=== PATIENT | male | born 1960 | race African-American/Black ===

== ENCOUNTER 2016-06-04 11:09 | Emergency (ER) | payer OTHER, MEDICAID ==
[~2016-06-04] VITALS: Ht 175.3 cm; Wt 75.0 kg
[~2016-06-04 11:09] MED LIST: ATEN-102 PO; LISI40TA PO; LORTA5 PO; NIFE1TAB86 PO
[2016-06-04 11:10] VITALS: BP 179/97; PULSE 91; RESP 18; TEMP 98.2; O2SAT 98
[2016-06-04] MEDS ORDERED: LISI40TA PO (12:10)
[2016-06-04] MEDS ORDERED: ATEN50TA PO (12:10)
[2016-06-04] MEDS ORDERED: NIFE60TA8 PO (12:10)
[2016-06-04] MEDS ORDERED: HYDR-3516 PO (12:10)
--- NOTE | 2016-06-04 13:08 | PD ---
HPI Chief Complaint: Pain: Acute or Chronic Time Seen by Provider: 12:50 Travel History International Travel<30 days: No Contact w/Intl Traveler<30days: No Traveled to known affect area: No History of Present Illness HPI 55-year-old male presents to the emergency Department with compla\int of left posterior knee pain 4 days. Says the pain started in his leg and then applies to his knee. Denies injury, fall, strain. Denies history of DVT or PE. Denies recent travel, hospitalization, surgery. Denies hemoptysis. Says his left seems to be a little bit more swollen than his right leg. Pain is worse with walking and palpation. Patient has neuropathy and denies increased numbness/tingling to the left lower extremity. Denies loss of sensation. Reports decreased range of motion at the knee secondary to pain. Denies anticoagulants. Patient is currently on chemotherapy for liver cancer. His last treatment was on Wednesday. Denies fever, chills, nausea, vomiting. Denies chest pain, shortness of breath, abdominal pain. Dr. Sims is oncologist. Patient of the [facility]. No known allergies. History of hypertension. No other modifying factors or associated signs and symptoms. 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, LIVER CA ) Cardiovascular Problems: No Chemotherapy: Yes (COLON CA) Diabetes: No Diminished Hearing: No Endocrine: No GERD: No Genitourinary: Yes (RECTAL CA; COLOSTOMY, LIVER CA ) Hepatitis: No Hiatal Hernia: No Hypertension: Yes Immune Disorder: No Musculoskeletal: No Neurologic: No Psychiatric: No Reproductive: No Respiratory: No Radiation Therapy: Yes Thyroid Disease: No Ulcer: No Past Surgical History Abdominal Surgery: Yes (PARTIAL COLECTOMY WITH COLOSTOMY 10/2012) AICD: No Cardiac Surgery: No Ear Surgery: No Endocrine Surgery: No Eye Surgery: No Genitourinary Surgery: No Gynecologic Surgery: No Joint Replacement: No Oral Surgery: No Pacemaker: No Thoracic Surgery: No Other Surgery: Yes (COLOSTOMY;) Social History Alcohol Use: No Tobacco Use: No Substance Use: No Allergies-Medications (Allergen,Severity, Reaction): Coded Allergies: No Known Allergies (Verified , 06/04/16) Reported Meds & Prescriptions Reported Meds & Active Scripts Active Xarelto (Rivaroxaban) 15 Mg Tab 15 Mg PO Q12HR 21 Days Reported Hydrocodone-Acetaminophen 5-325 mg Tab 1 Tab PO Q8H PRN Atenolol 50 Mg Tab 50 Mg PO DAILY Nifedipine ER 24 HR (Nifedipine) 60 Mg Tab 1 Cap PO DAILY Lisinopril 40 Mg Tab 40 Mg PO DAILY Review of Systems Except as stated in HPI: all other systems reviewed are Neg Physical Exam Narrative GENERAL: Well-nourished, well-developed male patient, in no acute distress; afebrile, nontoxic-appearing SKIN: Warm and dry. HEAD: Atraumatic. Normocephalic. EYES: Pupils equal and round. No scleral icterus. No injection or drainage. ENT: Mucosa pink and moist. Airway patent. NECK: Trachea midline. CARDIOVASCULAR: Regular rate and rhythm. No murmur appreciated. RESPIRATORY: No accessory muscle use. Clear and equal to auscultation bilaterally. GASTROINTESTINAL: Abdomen soft, non-tender, nondistended. Bowel sounds active 4 quadrants. Colostomy to the left lower quadrant. MUSCULOSKELETAL: Left lower extremity supple and non-tense with 2+ pedal pulse and sensory intact without erythema or edema. Reproducible tenderness on palpation to the left posterior upper calf and to the posterior aspect of the left knee. Left knee is nonedematous and nonerythematous; with tenderness to the posterior aspect; with full range of motion to flexion at 90; joint stable and negative drawer test. No obvious deformities. No clubbing. No cyanosis. No edema. NEUROLOGICAL: Awake and alert. Oriented 3. No obvious cranial nerve deficits. Motor grossly within normal limits. Normal speech. PSYCHIATRIC: Appropriate mood and affect; insight and judgment normal. Data Data Last Documented VS Vital Signs Date Time Temp Pulse Resp B/P Pulse Ox O2 Delivery O2 Flow Rate FiO2 06/04/16 11:10 98.2 91 18 179/97 98 Orders Us Leg Venous Doppler (06/04/16 ) Knee, Complete (4vws) (06/04/16 13:08) Crutches (06/04/16 16:02) Rivaroxaban (Xarelto) (06/04/16 16:15) MDM Medical Decision Making Medical Screen Exam Complete: Yes Emergency Medical Condition: Yes Medical Record Reviewed: Yes Differential Diagnosis Knee bursitis, arthritis, DVT Narrative Course 55-year-old male who is currently on chemotherapy for liver cancer with posterior knee pain and left leg pain. Left lower extremity supple and non- tense with 2+ pedal pulses and sensory intact and without erythema or edema. He denies history of DVT or PE. Denies anticoagulants. Patient is afebrile nontoxic appearing. Left leg venous ultrasound ordered. Left knee x-ray ordered. 1344: Left knee x-ray concludes Mild osteoarthritis without fracture; 2. Bone island medial tibial plateau. 1528: Left leg venous ultrasound concluded There is extensive left lower extremity DVT with thrombus present from the common femoral vein through the superficial femoral vein and popliteal vein into the tibial veins. I spoke with Dr. Peng, my attending physician, and he recommended to call the patients oncologist for recommendation of further treatment. Call out to Dr. Sims placed. 1555: I spoke with Dr. Sims and he recommended to start the patient on Xarelto and for the patient to follow up outpatient. Xarelto administered in ER. Crutches provided for support. Lortab and Xarelto prescribed for home. Instructed patient to follow up outpatient with Dr. Sims and primary care and he verbalizes understanding and agreement. Discussed in great detail reasons to return to the emergency department and the patient verbalized understanding and agreement. Patient is medically cleared and stable for discharge. Discussed reasons to return to the emergency department. Instructed patient to follow up with primary care provider. Patient agrees with treatment plan. The patients vital signs are stable and the patient is stable for outpatient follow- up and treatment. Patient discharged home, stable and in no acute distress. Diagnosis Primary Impression: Left leg DVT Qualified Code: I82.412 - Deep vein thrombosis (DVT) of femoral vein of left lower extremity, unspecified chronicity Referrals: Aldo Sims MD Primary Care Physician Patient Instructions: Deep Venous Thrombosis (ED), General Instructions Additional Instructions: Takes Xarelto as prescribed Follow-up with primary care provider Follow-up with Dr. Sims, oncologist Return to the emergency department immediately with worsening of symptoms, particularly with symptoms as discussed Med/Other Pt SpecificInfo: Prescription(s) given Scripts Hydrocodone-Acetaminophen (Lortab)5-325 Mg Tab1 Tab PO Q6H PRN (PAIN) #20 TAB Ref 0 Prov:Stu Peng MD 06/04/16 Rivaroxaban (Xarelto)15 Mg Tab15 Mg PO Q12HR 21 Days Ref 0 Prov:Yusra Samuel 06/04/16 Disposition: 01 DISCHARGE HOME Condition: Stable Yusra Samuel Jun 04, 2016 13:08
--- NOTE | 2016-06-04 13:30 | RADRPT ---
EXAM DATE/TIME: 06/04/2016 13:24 [facility] COMPARISON: No previous studies available for comparison. INDICATIONS : Left knee pain with no known injury. MEDICAL HISTORY : None. SURGICAL HISTORY : None. ENCOUNTER: Initial ACUITY: 4 - 6 days PAIN SCORE: 8/10 LOCATION: Left posterior knee. FINDINGS: Four view examination of the left knee demonstrates no evidence of fracture or dislocation. Mild oste oarthritis. No fracture or effusion. Sclerotic focus medial tibial plateau. The suprapatellar soft ti ssues have a normal configuration. CONCLUSION: 1. Mild osteoarthritis without fracture. 2. Bone island medial tibial plateau. Chuck Valentine MD on June 04, 2016 at 13:28 Board Certified Radiologist. This report was verified electronically.
--- NOTE | 2016-06-04 15:21 | RADRPT ---
EXAM DATE/TIME: 06/04/2016 13:59 [facility] COMPARISON: No previous studies available for comparison. INDICATIONS : Pain in left lower extremity. MEDICAL HISTORY : Hypertension. Colorectal cancer. Liver cancer. UTI. Radiation therapy. Measles. SURGICAL HISTORY : Partial colectomy. Colostomy. ENCOUNTER: Initial ACUITY: 2 day PAIN SCORE: 10/10 LOCATION: Left leg. TECHNIQUE: Venous ultrasound of the leg was performed from the inguinal ligament to the proximal calf. Real-meghan e, color Doppler and spectral tracing, compression and augmentation techniques were used. FINDINGS: There is extensive left lower extremity DVT with thrombus present from the common femoral vein throug h the superficial femoral vein and popliteal vein into the tibial veins. CONCLUSION: Extensive left lower extremity DVT Tacho Valera MD on June 04, 2016 at 15:17 Board Certified Radiologist. This report was verified electronically.
[2016-06-04] MEDS ORDERED: XARE15TA PO (15:59)
[2016-06-04] MEDS ORDERED: HYDR-3533 PO (16:12)
[2016-06-04] MEDS ORDERED: RIVAROXABAN 15 MG TAB PO ONE (16:15)
== END 2016-06-04 16:58 | disposition home or self-care (01) ==
LOC: NEPB 11:09
DX: I82.412 Acute embolism and thrombosis of left femoral vein (principal)
CPT/HCPCS: 73564; 93971; 99283; E0113

== ENCOUNTER 2016-06-15 16:32 | Inpatient (IN) | payer OTHER, MEDICAID, MEDICARE ==
[~2016-06-15] VITALS: Ht 172.7 cm; Wt 73.0 kg
[~2016-06-15 16:32] MED LIST changes: -ATEN-102 PO; +ATEN50TA PO; +HYDR-3516 PO; +HYDR-3533 PO; -LORTA5 PO; -NIFE1TAB86 PO; +NIFE60TA8 PO; +XARE15TA PO
[2016-06-15 16:45] VITALS: BP 101/68; PULSE 69; RESP 20; TEMP 98.4; O2SAT 99
[2016-06-15 16:53] VITALS: BP 101/68; PULSE 72; RESP 20; O2SAT 98
[2016-06-15] MEDS ORDERED: SODIUM CHLOR 0.9% 1000 ML INJ 1,000 ML IV SCH (16:54)
[2016-06-15 16:59] VITALS: BP 101/68; PULSE 62; RESP 16; O2SAT 100
[2016-06-15] MEDS ORDERED: SODIUM CHLORIDE 0.9% FLUSH 5 ML FLUSH IVF PRN (17:00)
[2016-06-15] MEDS ORDERED: DIPHEN/ATROPINE PO (17:15)
[2016-06-15] MEDS ORDERED: GABA300C5 PO (17:15)
[2016-06-15] MEDS ORDERED: POTA10CA PO (17:15)
[2016-06-15] MEDS ORDERED: AMLO10TA2 PO (17:15)
--- NOTE | 2016-06-15 17:19 | PD ---
HPI Chief Complaint: General Weakness Time Seen by Provider: 16:48 Travel History International Travel<30 days: No Contact w/Intl Traveler<30days: No Traveled to known affect area: No History of Present Illness HPI This is a 55-year-old male who presents history of metastatic colon cancer who presents to the emergency department with increasing right upper quadrant abdominal pain, decreased appetite and lethargy and weakness that of a worsening over the past 3 days. He denies any fevers or chills and denies any nausea or vomiting. He last had chemotherapy a week ago and is followed by Dr. Sims. 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, LIVER CA ) Cardiovascular Problems: Yes (HTN) Chemotherapy: Yes Diabetes: No Diminished Hearing: No Deep Vein Thrombosis: Yes (RECENT LT LEG DIAG) Endocrine: No Gastrointestinal Disorders: Yes GERD: No Genitourinary: Yes (RECTAL CA; COLOSTOMY, LIVER CA ) Hepatitis: No Hiatal Hernia: No Hypertension: Yes Immune Disorder: No Implanted Vascular Access Dvce: No Musculoskeletal: No Neurologic: No Psychiatric: No Reproductive: No Respiratory: No Radiation Therapy: Yes Thyroid Disease: No Ulcer: No Tetanus Vaccination: < 5 Years Influenza Vaccination: No Past Surgical History Abdominal Surgery: Yes (PARTIAL COLECTOMY WITH COLOSTOMY 10/2012) AICD: No Cardiac Surgery: No Ear Surgery: No Endocrine Surgery: No Eye Surgery: No Genitourinary Surgery: No Gynecologic Surgery: No Joint Replacement: No Neurologic Surgery: No Oral Surgery: No Pacemaker: No Thoracic Surgery: No Other Surgery: Yes (COLOSTOMY;) Social History Alcohol Use: No Tobacco Use: No Substance Use: No Allergies-Medications (Allergen,Severity, Reaction): Coded Allergies: No Known Allergies (Verified , 06/15/16) Reported Meds & Prescriptions Reported Meds & Active Scripts Active Lortab (Hydrocodone-Acetaminophen) 5-325 Mg Tab 1 Tab PO Q6H PRN Xarelto (Rivaroxaban) 15 Mg Tab 15 Mg PO Q12HR 21 Days Reported Doxazosin (Doxazosin Mesylate) 4 Mg Tab 4 Mg PO HS [Diphen/Atropine] 1-2 PO Q4HR PRN Gabapentin 300 Mg Cap 300 Mg PO TID Amlodipine (Amlodipine Besylate) 10 Mg Tab 10 Mg PO DAILY Potassium Chloride ER (Potassium Chloride) 10 Meq Cap 10 Meq PO BID Atenolol 50 Mg Tab 50 Mg PO DAILY Nifedipine ER 24 HR (Nifedipine) 60 Mg Tab 1 Cap PO DAILY Lisinopril 40 Mg Tab 40 Mg PO DAILY Review of Systems Except as stated in HPI: all other systems reviewed are Neg Physical Exam Narrative GENERAL: Chronically ill-appearing. SKIN: Warm and dry. HEAD: Atraumatic. Normocephalic. EYES: Pupils equal and round. No injection or drainage. Scleral icterus. ENT: Dry mucous membranes. NECK: Trachea midline. CARDIOVASCULAR: Regular rate and rhythm. No murmur appreciated. RESPIRATORY: Clear to auscultation. Breath sounds equal bilaterally. GASTROINTESTINAL: Abdomen soft, tender to palpation in the right upper quadrant with no rebound or guarding. MUSCULOSKELETAL: No obvious deformities. NEUROLOGICAL: Awake and alert. No obvious cranial nerve deficits. Moving all extremities. PSYCHIATRIC: Appropriate mood and affect; insight and judgment normal. Data Data Last Documented VS Vital Signs Date Time Temp Pulse Resp B/P Pulse Ox O2 Delivery O2 Flow Rate FiO2 06/15/16 17:27 Room Air 06/15/16 16:59 62 16 101/68 100 06/15/16 16:45 98.4 Orders Complete Blood Count With Diff (06/15/16 16:54) Comprehensive Metabolic Panel (06/15/16 16:54) Lipase (06/15/16 16:54) Urinalysis - C+S If Indicated (06/15/16 16:54) Iv Access Insert/Monitor (06/15/16 16:54) Ecg Monitoring (06/15/16 16:54) Oximetry (06/15/16 16:54) Sodium Chlor 0.9% 1000 Ml Inj (Ns 1000 M (06/15/16 16:54) Sodium Chloride 0.9% Flush (Ns Flush) (06/15/16 17:00) Pantoprazole Inj (Protonix Inj) (06/15/16 18:45) Type And Screen (06/15/16 18:44) Prothrombin Time / Inr (Pt) (06/15/16 18:44) Act Partial Throm Time (Ptt) (06/15/16 18:44) Red Blood Cells (Rbc) (06/15/16 18:44) Blood Product Administration .UPON TRANSFUSION (06/15/16 18:44) Sodium Chlor 0.9% 250 Ml Inj (Ns 250 Ml (06/15/16 18:45) Pantoprazole Inj (Protonix Inj) (06/15/16 20:00) Pantoprazole Inj (Protonix Inj) (06/15/16 20:00) Labs Laboratory Tests Test 06/15/16 18:10 White Blood Count 2.7 TH/MM3 Red Blood Count 2.60 MIL/MM3 Hemoglobin 7.4 GM/DL Hematocrit 22.8 % Mean Corpuscular Volume 87.5 FL Mean Corpuscular Hemoglobin 28.5 PG Mean Corpuscular Hemoglobin 32.6 % Concent Red Cell Distribution Width 17.1 % Platelet Count 264 TH/MM3 Mean Platelet Volume 8.8 FL Neutrophils (%) (Auto) % Lymphocytes (%) (Auto) % Monocytes (%) (Auto) % Eosinophils (%) (Auto) % Basophils (%) (Auto) % Neutrophils # (Auto) TH/MM3 Lymphocytes # (Auto) TH/MM3 Monocytes # (Auto) TH/MM3 Eosinophils # (Auto) TH/MM3 Basophils # (Auto) TH/MM3 CBC Comment AUTO DIFF Sodium Level 138 MEQ/L Potassium Level 3.6 MEQ/L Chloride Level 103 MEQ/L Carbon Dioxide Level 24.7 MEQ/L Anion Gap 10 MEQ/L Blood Urea Nitrogen 28 MG/DL Creatinine 1.28 MG/DL Estimat Glomerular Filtration 71 ML/MIN Rate Random Glucose 103 MG/DL Calcium Level 7.7 MG/DL Total Bilirubin 0.7 MG/DL Aspartate Amino Transf 108 U/L (AST/SGOT) Alanine Aminotransferase 63 U/L (ALT/SGPT) Alkaline Phosphatase 65 U/L Total Protein 6.7 GM/DL Albumin 1.6 GM/DL Lipase 66 U/L MDM Medical Decision Making Medical Screen Exam Complete: Yes Emergency Medical Condition: Yes Differential Diagnosis Electrolyte abnormality, dehydration, anemia, GI bleed, malignancy Narrative Course This is a 55-year-old male who presents to the emergency department with increasing fatigue and generalized weakness as well as poor oral intake over the past week. He was recently started on xarelto for a DVT. Patient was placed on a monitor and his port was accessed. He was found to have his hemoglobin of 7.4 which is down from 10 2 weeks ago. His colostomy had grossly heme positive stool. I suspect the patient's generalized weakness is in the setting of GI bleed. Patient will require admission. He was started on a pantoprazole drip, patient will be transfused one unit of blood, and Dr. Juarez should be consulted as an inpatient as well as Dr. Sims. Diagnosis Primary Impression: GI bleed Qualified Code: K92.2 - Gastrointestinal hemorrhage, unspecified gastrointestinal hemorrhage type Admitting Information Admitting Physician Requests: Admit Alda Jung MD Jun 15, 2016 17:19
[2016-06-15] MEDS ORDERED: DOXA1TAB34 PO (17:21)
[2016-06-15 18:27] LABS: HEMATOCRIT 22.8 % (39.0-51.0); MEAN CELL VOLUME 87.5 FL (80.0-100.0); MEAN CORPUSCULAR HEMOGLOBIN 28.5 PG (27.0-34.0); MEAN CORPUSCULAR HGB CONC 32.6 % (32.0-36.0); PLATELET COUNT 264 TH/MM3 (150-450); RED CELL DISTRIBUTION WIDTH 17.1 % (11.6-17.2); WHITE BLOOD COUNT 2.7 TH/MM3 (4.0-11.0)
[2016-06-15 18:31] LABS: HEMO FLAGS AUTO DIFF
[2016-06-15] MEDS ORDERED: SODIUM CHLOR 0.9% 250 ML INJ 250 ML IV ONE (18:45)
[2016-06-15] MEDS ORDERED: PANTOPRAZOLE SODIUM 40 MG VIAL IV PUSH ONE (18:45)
[2016-06-15 19:03] LABS: ANION GAP 10 MEQ/L (5-15); AST (GOT) 108 U/L (15-37); BICARBONATE 24.7 MEQ/L (21.0-32.0); BLOOD UREA NITROGEN 28 MG/DL (7-18); CHLORIDE 103 MEQ/L (98-107); GLOMERULAR FILTRATION RATE 71 ML/MIN (>89); POTASSIUM 3.6 MEQ/L (3.5-5.1); SODIUM (NA) 138 MEQ/L (136-145)
[2016-06-15 19:06] LABS: ALKALINE PHOSPHATASE 65 U/L (45-117); ALT (GPT) 63 U/L (12-78); TOTAL BILIRUBIN ADULT 0.7 MG/DL (0.2-1.0)
[2016-06-15 19:18] LABS: BANDS 4 % (0-6); BASOPHILS 1 % (0-2); NEUTROPHIL # MANUAL DIFF 0.6 TH/MM3 (1.8-7.7); PLASMA CELLS 3 % (0-0); POLYS (SEG NEUTROPHILS) 16 % (16-70); PROMYELOCYTES 1 % (0-0); WBC DIFF SAMPLE 100
[2016-06-15 19:21] LABS: OVALOCYTES 1+ (NORMAL)
[2016-06-15 19:22] LABS: KERATOCYTES OCC (NORMAL); PLATELET ESTIMATE SMEAR NORMAL (NORMAL); PLATELET MORPHOLOGY NORMAL (NORMAL); SCAN/DIFF FINAL DIFF MANUAL
[2016-06-15 19:24] LABS: BLOOD, URINE SMALL (NEG); COMMENT (UR) CULT NOT INDICATED; CULTURE IF INDICATED CULT NOT INDICATED; GLUCOSE,URINE TRACE mg/dL (NEG); KETONE, URINE NEG (NEG); MUCUS URINE FEW /lpf (OCC); NITRITE,URINE NEG (NEG); PH, URINE 5.5 (5.0-8.5); SQUAMOUS EPITHELIAL CELL URINE 3 /hpf (0-5); URINE COLOR YELLOW (YELLW/STRAW)
[2016-06-15] MEDS ORDERED: PANTOPRAZOLE INJ 80 MG in SODIUM CHLORIDE 0.9% INJ 35 ML IV ONE (20:00)
--- NOTE | 2016-06-15 20:30 | PD ---
Data Data Last Documented VS Vital Signs Date Time Temp Pulse Resp B/P Pulse Ox O2 Delivery O2 Flow Rate FiO2 06/15/16 17:27 Room Air 06/15/16 16:59 62 16 101/68 100 06/15/16 16:45 98.4 Orders Complete Blood Count With Diff (06/15/16 16:54) Comprehensive Metabolic Panel (06/15/16 16:54) Lipase (06/15/16 16:54) Urinalysis - C+S If Indicated (06/15/16 16:54) Iv Access Insert/Monitor (06/15/16 16:54) Ecg Monitoring (06/15/16 16:54) Oximetry (06/15/16 16:54) Sodium Chlor 0.9% 1000 Ml Inj (Ns 1000 M (06/15/16 16:54) Sodium Chloride 0.9% Flush (Ns Flush) (06/15/16 17:00) Pantoprazole Inj (Protonix Inj) (06/15/16 18:45) Type And Screen (06/15/16 18:44) Prothrombin Time / Inr (Pt) (06/15/16 18:44) Act Partial Throm Time (Ptt) (06/15/16 18:44) Red Blood Cells (Rbc) (06/15/16 18:44) Blood Product Administration .UPON TRANSFUSION (06/15/16 18:44) Sodium Chlor 0.9% 250 Ml Inj (Ns 250 Ml (06/15/16 18:45) Pantoprazole Inj (Protonix Inj) (06/15/16 20:00) Pantoprazole Inj (Protonix Inj) (06/15/16 20:00) Admit Order (Ed Use Only) (06/15/16 20:58) Labs Laboratory Tests Test 06/15/16 06/15/16 06/15/16 06/15/16 18:10 18:45 20:10 20:20 White Blood Count 2.7 TH/MM3 Red Blood Count 2.60 MIL/MM3 Hemoglobin 7.4 GM/DL Hematocrit 22.8 % Mean Corpuscular Volume 87.5 FL Mean Corpuscular Hemoglobin 28.5 PG Mean Corpuscular Hemoglobin 32.6 % Concent Red Cell Distribution Width 17.1 % Platelet Count 264 TH/MM3 Mean Platelet Volume 8.8 FL Neutrophils (%) (Auto) % Lymphocytes (%) (Auto) % Monocytes (%) (Auto) % Eosinophils (%) (Auto) % Basophils (%) (Auto) % Neutrophils # (Auto) TH/MM3 Lymphocytes # (Auto) TH/MM3 Monocytes # (Auto) TH/MM3 Eosinophils # (Auto) TH/MM3 Basophils # (Auto) TH/MM3 CBC Comment AUTO DIFF Differential Total Cells 100 Counted Neutrophils % (Manual) 16 % Band Neutrophils % 4 % Lymphocytes % 36 % Monocytes % 39 % Basophils % 1 % Neutrophils # (Manual) 0.6 TH/MM3 Promyelocytes 1 % Differential Comment FINAL DIFF MANUAL Plasma Cells 3 % Platelet Estimate NORMAL Platelet Morphology Comment NORMAL Ovalocytes 1+ Keratocytes OCC Sodium Level 138 MEQ/L Potassium Level 3.6 MEQ/L Chloride Level 103 MEQ/L Carbon Dioxide Level 24.7 MEQ/L Anion Gap 10 MEQ/L Blood Urea Nitrogen 28 MG/DL Creatinine 1.28 MG/DL Estimat Glomerular Filtration 71 ML/MIN Rate Random Glucose 103 MG/DL Calcium Level 7.7 MG/DL Total Bilirubin 0.7 MG/DL Aspartate Amino Transf 108 U/L (AST/SGOT) Alanine Aminotransferase 63 U/L (ALT/SGPT) Alkaline Phosphatase 65 U/L Total Protein 6.7 GM/DL Albumin 1.6 GM/DL Lipase 66 U/L Urine Color YELLOW Urine Turbidity HAZY Urine pH 5.5 Urine Specific [place] 1.023 Urine Protein 100 mg/dL Urine Glucose (UA) TRACE mg/dL Urine Ketones NEG mg/dL Urine Occult Blood SMALL Urine Nitrite NEG Urine Bilirubin NEG Urine Urobilinogen LESS THAN 2.0 MG/DL Urine Leukocyte Esterase NEG Urine RBC 1 /hpf Urine WBC 2 /hpf Urine Squamous Epithelial 3 /hpf Cells Urine Mucus FEW /lpf Microscopic Urinalysis Comment CULT NOT INDICATED Prothrombin Time 21.6 SEC Prothromb Time International 1.9 RATIO Ratio Activated Partial 52.8 SEC Thromboplast Time Blood Type B POSITIVE Antibody Screen NEGATIVE Crossmatch Leukocyte-Reduced Red Blood Cells Blood Bank Comment [facility] Medical Record Reviewed: Yes Supervised Visit with ULISES: No Narrative Course CBC & BMP Diagram 06/15/16 18:10 AST 108 Albumin 1.6 Lipase 66 INR 1.9 APTT 52.8 Patient will be admitted for transfusion of packed red cells. Protonix bolus and drip initiated. The patient will be admitted for management of GI bleed/ acute anemia. Diagnosis Primary Impression: GI bleed Qualified Code: K92.2 - Gastrointestinal hemorrhage, unspecified gastrointestinal hemorrhage type Admitting Information Admitting Physician Requests: Admit Jabier Loo MD Jun 15, 2016 20:30
[2016-06-15 21:00] LABS: APTT (PATIENT) 52.8 SEC (24.3-30.1); INTERNATIONAL NORMALIZED RATIO 1.9 RATIO; PROTHROMBIN TIME - PATIENT 21.6 SEC (9.8-11.6)
[2016-06-15] MEDS ORDERED: NALOXONE HCL 0.4 MG/ML AMP IV PRN (21:30)
[2016-06-15] MEDS ORDERED: SODIUM CHLORIDE 0.9% FLUSH 5 ML FLUSH FLUSH PRN (21:30)
[2016-06-15] MEDS ORDERED: ONDANSETRON HCL 4 MG/2 ML VIAL IVP PRN (21:30)
[2016-06-15 22:43] VITALS: BP 130/81; PULSE 60; RESP 16; TEMP 98.1; O2SAT 99
[2016-06-15] MEDS: PANTOPRAZOLE INJ 80 MG in SODIUM CHLORIDE 0.9% INJ 100 ML IV SCH (22:45)
[2016-06-15 23:05] VITALS: BP 126/85; PULSE 78; RESP 16; TEMP 98.3; O2SAT 99
[2016-06-15 23:57] VITALS: BP 162/88; PULSE 62; RESP 20; TEMP 97.7; O2SAT 100
[2016-06-16] VITALS (13 sets, daily range): BP systolic 115–158; BP diastolic 80–97; PULSE 52–67; RESP 18–22; TEMP 96.8–98.9; O2SAT 94–100
--- NOTE | 2016-06-16 01:38 | HHI.HP ---
[facility]ician Unknown Admission Diagnosis GI Bleed, Acute Anemia Diagnoses: Chief Complaint: Blood in colostomy bag Travel History International Travel<30 Days: No Contact w/Intl Traveler <30 Da: No Traveled to Known Affected Are: No History of Present Illness History from patient, ER physician communication, and review of medical records. Patient reported that he came to the hospital because he started seeing black color blood in his colostomy bag starting Wednesday. He also reports of severe fatigue. Denies any chest pains or shortness of breath or dizziness or focal weakness. Denies any passing out episodes. Patient reports he has colon cancer with metastasis and he is on chemotherapy at present. His last dose of chemotherapy was about a week ago. He reports that he is also on Xarelto for his left lower extremity DVT which was found about 3 days ago. He states he stopped taking Xarelto this morning. He denies any prior history of GI ulcers. As per ER report, patient was somewhat complaining of chest pain when the IV line was placed onto his left arm. In the emergency room, guaiac was done on his colostomy output and this was positive. Patient was started on pantoprazole IV drip in ER. Review of Systems Constitutional: COMPLAINS OF: Fatigue, DENIES: Diaphoretic episodes, Fever, Weight gain, Weight loss, Chills, Dizziness Endocrine: DENIES: Heat/cold intolerance, Polydipsia, Polyuria, Polyphagia Respiratory: COMPLAINS OF: Shortness of breath, DENIES: Apneas, Cough, Wheezing, Hemoptysis, Sputum production Cardiovascular: COMPLAINS OF: Dyspnea on Exertion, Orthopnea, DENIES: Chest pain, Palpitations, Syncope, PND, Lower Extremity Edema Gastrointestinal: COMPLAINS OF: Abdominal pain, Black stools, DENIES: Bloody stools, Constipation, Diarrhea, Nausea, Vomiting, Difficulty Swallowing, Anorexia Genitourinary: DENIES: Urinary frequency, Urinary incontinence, Urgency, Hematuria, Dysuria, Nocturia Neurologic: DENIES: Abnormal gait, Headache, Localized weakness, Paresthesias, Seizures, Speech Problems, Tremor, Poor Balance Past Family Social History Past Medical History Colon cancerwith metastasison chemotherapy, last dose 2 weeks ago Hypertension Left lower extremity DVT Past Surgical History Colon surgery removal DVT Reported Medications Patient's medications listed in EMRreviewed. Allergies: Coded Allergies: No Known Allergies (Verified , 06/15/16) Family History Denies any family history of any medical conditions. Social History Denies smoking/alcohol abuse/drug abuse. Physical Exam Vital Signs Vital Signs Date Time Temp Pulse Resp B/P Pulse Ox O2 Delivery O2 Flow Rate FiO2 06/15/16 23:57 97.7 62 20 162/88 100 06/15/16 23:05 98.3 78 16 126/85 99 Room Air 06/15/16 22:43 98.1 60 16 130/81 99 Room Air 06/15/16 17:27 Room Air 06/15/16 16:59 62 16 101/68 100 Room Air 06/15/16 16:53 72 20 101/68 98 Room Air 06/15/16 16:45 98.4 69 20 101/68 99 Physical Exam GENERAL: This is a well-nourished, well-developed patient, in no apparent distress. SKIN: No rashes, ecchymoses or lesions. Cool and dry. HEAD: Atraumatic. Normocephalic. No temporal or scalp tenderness. EYES: Pupils equal round and reactive. Extraocular motions intact. No scleral icterus. No injection or drainage. ENT: Nose without bleeding, purulent drainage or septal hematoma. Throat without erythema, tonsillar hypertrophy or exudate. Uvula midline. Airway patent. NECK: Trachea midline. No JVD or lymphadenopathy. Supple, nontender, no meningeal signs. CARDIOVASCULAR: Regular rate and rhythm without murmurs, gallops, or rubs. RESPIRATORY: Clear to auscultation. Breath sounds equal bilaterally. No wheezes , rales, or rhonchi. GASTROINTESTINAL: Abdomen soft, non-tender, nondistended. No hepato-splenomegaly , or palpable masses. No guarding. MUSCULOSKELETAL: Extremities without clubbing, cyanosis, or edema. No calf tenderness. NEUROLOGICAL: Awake and alert. Motor and sensory grossly within normal limits. Normal speech. Laboratory Laboratory Tests Test 06/15/16 06/15/16 06/15/16 06/15/16 18:10 18:45 20:10 20:20 White Blood Count 2.7 Red Blood Count 2.60 Hemoglobin 7.4 Hematocrit 22.8 Mean Corpuscular Volume 87.5 Mean Corpuscular Hemoglobin 28.5 Mean Corpuscular Hemoglobin 32.6 Concent Red Cell Distribution Width 17.1 Platelet Count 264 Mean Platelet Volume 8.8 Neutrophils (%) (Auto) Lymphocytes (%) (Auto) Monocytes (%) (Auto) Eosinophils (%) (Auto) Basophils (%) (Auto) Neutrophils # (Auto) Lymphocytes # (Auto) Monocytes # (Auto) Eosinophils # (Auto) Basophils # (Auto) CBC Comment AUTO DIFF Differential Total Cells 100 Counted Neutrophils % (Manual) 16 Band Neutrophils % 4 Lymphocytes % 36 Monocytes % 39 Basophils % 1 Neutrophils # (Manual) 0.6 Promyelocytes 1 Differential Comment FINAL DIFF MANUAL Plasma Cells 3 Platelet Estimate NORMAL Platelet Morphology Comment NORMAL Ovalocytes 1+ Keratocytes OCC Sodium Level 138 Potassium Level 3.6 Chloride Level 103 Carbon Dioxide Level 24.7 Anion Gap 10 Blood Urea Nitrogen 28 Creatinine 1.28 Estimat Glomerular Filtration 71 Rate Random Glucose 103 Calcium Level 7.7 Total Bilirubin 0.7 Aspartate Amino Transf 108 (AST/SGOT) Alanine Aminotransferase 63 (ALT/SGPT) Alkaline Phosphatase 65 Total Protein 6.7 Albumin 1.6 Lipase 66 Urine Color YELLOW Urine Turbidity HAZY Urine pH 5.5 Urine Specific Beth[place] 1.023 Urine Protein 100 Urine Glucose (UA) TRACE Urine Ketones NEG Urine Occult Blood SMALL Urine Nitrite NEG Urine Bilirubin NEG Urine Urobilinogen LESS THAN 2.0 Urine Leukocyte Esterase NEG Urine RBC 1 Urine WBC 2 Urine Squamous Epithelial 3 Cells Urine Mucus FEW Microscopic Urinalysis Comment CULT NOT INDICATED Prothrombin Time 21.6 Prothromb Time International 1.9 Ratio Activated Partial 52.8 Thromboplast Time Blood Type B POSITIVE Antibody Screen NEGATIVE Crossmatch Leukocyte-Reduced Red Blood Cells Blood Bank Comment Test 06/15/16 21:18 Crossmatch Leukocyte-Reduced Red Blood Cells Blood Bank Comment Result Diagram: 06/15/16180906/15/161809 Assessment and Plan Problem List: (1) GI bleed ICD Code: K92.2 Status: Acute (2) Left leg DVT ICD Code: I82.402 Status: Acute (3) Colon cancer metastasized to multiple sites ICD Code: C18.9 Status: Acute Assessment and Plan Impression: Upper GI bleedlikely due to Xarelto. Symptomatic anemiasecondary to acute blood loss Colon cancerwith metastasison chemotherapy, last dose 2 weeks ago Hypertension Left lower extremity DVTrecent diagnosis Chronic anticoagulation on Xarelto Plan: Stop all blood thinners. Pantoprazole IV drip. Type and screen for 2 units. Transfuse 2 units of PRBC. Consult patient's GI Dr. Robles for colonoscopy through the colostomy. Consult patient's oncologist as he is still on active chemotherapy. DVT prophylaxisno chemical prophylaxis due to acute GI bleed. SCD is contraindicated due to acute DVT. GI prophylaxis on pantoprazole. Discussed Condition With patient, ER MD, patient's nurse Physician Certification 2 Midnight Certification Type: Admission for Inpatient Services Order for Inpatient Services The services are ordered in accordance with Medicare regulations or non- Medicare payer requirements, as applicable. In the case of services not specified as inpatient-only, they are appropriately provided as inpatient services in accordance with the 2-midnight benchmark. Estimated LOS (days): 3 days is the estimated time the patient will need to remain in the hospital, assuming treatment plan goals are met and no additional complications. Post-Hospital Plan: Home Problem Qualifiers (1) GI bleed: Qualified Code: K92.2 - Gastrointestinal hemorrhage, unspecified gastrointestinal hemorrhage type Alberto Caldwell MD Jun 16, 2016 01:38
[2016-06-16] MEDS: MORPHINE SULFATE 4 MG/ML INJ IV PUSH PRN ×3 (02:18→17:50)
[2016-06-16] MEDS: PANTOPRAZOLE INJ 80 MG in SODIUM CHLORIDE 0.9% INJ 100 ML IV SCH ×2 (05:54→17:49)
[2016-06-16] MEDS: GABAPENTIN 300 MG CAP PO SCH ×3 (08:49→17:49)
[2016-06-16] MEDS: ATENOLOL 50 MG TAB PO SCH (08:49)
[2016-06-16] MEDS: SODIUM CHLORIDE 0.9% FLUSH 5 ML FLUSH FLUSH SCH ×2 (08:50→20:15)
[2016-06-16 09:32] LABS: HEMATOCRIT 36.7 % (39.0-51.0); REVIEW FLAG FINAL
--- NOTE | 2016-06-16 11:30 | HHI.PR ---
Addendum to Inpatient Note Additional Information Mr. Palomares is doing well. No acute concerns at this point. Waiting for GI consult. H&H this AM 12.4/36.7. Jeronimo Erwin DO Jun 16, 2016 11:30 am
[2016-06-16 13:30] LABS: AUTOMATED NEUTROPHIL # 4.1 TH/MM3 (1.8-7.7); BASOPHIL % 0.3 % (0.0-2.0); LYMPH % 14.9 % (9.0-44.0); LYMPHOCYTE # 0.9 TH/MM3 (1.0-4.8); MEAN CORPUSCULAR HEMOGLOBIN 28.2 PG (27.0-34.0); MONO % 19.3 % (0.0-8.0); NEUT % 65.5 % (16.0-70.0); PLATELET COUNT 319 TH/MM3 (150-450); RED BLOOD COUNT 4.46 MIL/MM3 (4.50-5.90); RED CELL DISTRIBUTION WIDTH 17.1 % (11.6-17.2); WHITE BLOOD COUNT 6.3 TH/MM3 (4.0-11.0)
[2016-06-16 13:31] LABS: HEMO FLAGS AUTO DIFF
[2016-06-16 13:55] LABS: BICARBONATE 27.8 MEQ/L (21.0-32.0); POTASSIUM 3.4 MEQ/L (3.5-5.1)
[2016-06-16 14:41] LABS: BANDS 14 % (0-6); CORRECTED NUCLEATED RBC 2 /100 WBC (0-0); METAMYELOCYTES 3 % (0-1); MYELOCYTES 1 % (0-0); NEUTROPHIL # MANUAL DIFF 4.1 TH/MM3 (1.8-7.7); POLYS (SEG NEUTROPHILS) 47 % (16-70); SCAN/DIFF FINAL DIFF MANUAL; WBC DIFF SAMPLE 100
[2016-06-16 14:42] LABS: PLATELET ESTIMATE SMEAR NORMAL (NORMAL); PLATELET MORPHOLOGY NORMAL (NORMAL)
[2016-06-16 14:43] LABS: OVALOCYTES 1+ (NORMAL); TARGET CELLS 1+ (NORMAL)
[2016-06-16] MEDS ORDERED: LOMO2.5T PO (17:33)
--- NOTE | 2016-06-16 18:59 | MB ---
cc: AIMEE LORENZO DATE OF CONSULTATION 06/16/16 REASON FOR CONSULTATION GI bleeding HISTORY OF PRESENT ILLNESS Mr. Palomarse is a pleasant 55-year-old -[place] gentleman with past medical history significant for rectal cancer status post partial colectomy currently undergoing chemotherapy for metastatic disease, hypertension and left lower extremity DVT for which he is on chronic anticoagulation with Xarelto who presented to the hospital secondary to seeing black stools in his colostomy bag. History is limited since the patient is unable to give details about his condition. As per notes, this started last Wednesday. He reports noticing some dark stool in his colostomy bag but otherwise she denies any other symptoms. He does report at times some heartburn and reflux, reports he had some of this last week. On arrival, he was found to have significant anemia with hemoglobin of 9.4. GI has been consulted for possible GI bleeding. PAST MEDICAL HISTORY 1. Metastatic colon cancer. 2. Hypertension 3. Lower extremity DVT PAST SURGICAL HISTORY Partial colectomy. ALLERGIES NO KNOWN DRUG ALLERGIES. FAMILY HISTORY AND SOCIAL HISTORY Denies any alcohol, drug or tobacco use. MEDICATIONS Active medications. 1. Doxazosin 4 mg p.o. q.h.s. 2. Atenolol 50 mg p.o. 3. Gabapentin 300 mg t.i.d., 4. Morphine 2 mg q. 3 hours p.r.n., 5. Protonix drip REVIEW OF SYSTEMS Positive for heartburn and reflux. Otherwise 14 point medical review of systems negative. PHYSICAL EXAMINATION VITAL SIGNS: Temperature 97.6, heart rate of 60, respiratory rate 18, blood pressure 154/92. GENERAL: He is a well-developed male in no acute distress lying comfortably in bed. HEENT: Normocephalic, atraumatic. Extraocular movements are intact. Pupils equal, round, reactive to light and accommodation. Nonicteric sclerae. NECK: Supple. No JVD, no lymphadenopathy. CARDIOVASCULAR: Regular rate and rate. S1, S2. No murmurs, rubs or gallops. PULMONARY: Clear to auscultation bilaterally. No wheeze or rhonchi. ABDOMEN: Mid abdominal scar with a colostomy back in place with dark brown material, no tenderness on palpation. No rebound or guarding. Bowel sounds are present. EXTREMITIES: No cyanosis, edema, pulses 2+ bilaterally. NEUROLOGIC: He is alert, oriented x3. Cranial nerves intact. No focal deficits. LABORATORY DATA White blood cell count 6.3, hemoglobin 12.6, platelet count of 319. Sodium 141, potassium 3.4, BUN 26, creatinine 1.17, chloride 103, bicarb of 27.8, total bilirubin 0.7, AST 108, ALT 63. Alkaline phosphatase 65, albumin 1.6, lipase of 66. ASSESSMENT Mr. Palomares is a 55 year old gentleman with known history of metastatic colon cancer status post colectomy on chemotherapy as well as DVT for which he takes chronic anticoagulation who presented to the hospital with concerns for upper GI bleeding and anemia. PLAN 1. Upper GI bleeding/melena/anemia most likely source is upper GI tract in the setting of anticoagulation with Pradaxa. Concern is for possible underlying esophagitis/gastritis, peptic ulcer disease or malignancy. Recommend to continue supportive care, continue PPI drip for now. Avoid NSAIDs. We will plan for an upper endoscopy in the morning. Recommend placing the patient on a clear liquid diet for now and n.p.o. after midnight for possible procedure in the morning. Continue to monitor H&H every 12 hours and transfuse as needed to keep hemoglobin above seven. Avoid any NSAIDs use. All other medical problems will be addressed by his primary team. We would like to thank Dr. Caldwell for this consultation and letting us participate in the care of Mr. Palomares. We will follow the patient along with you. Please call us with any question or concerns. MD CORINA Maynard/ /4:46 PM /6:40 PM
[2016-06-16] MEDS: DOXAZOSIN MESYLATE 4 MG TAB PO SCH (20:14)
--- NOTE | 2016-06-16 22:23 | MB ---
cc: LOLA CARTER DATE OF CONSULTATION: 06/16/2016 REASON FOR CONSULTATION: A 55 year-old male with metastatic adenocarcinoma of the rectum, DVT left leg, GI bleeding and on Xarelto. PATIENT PROFILE The patient is a 55 year-old black male. He was born in [place], [place]. He lives in [place] with his sister. He is . He has three daughters. 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 He is not able to work now due to illness. He does not smoke, he does not drink. HISTORY OF PRESENT ILLNESS: The patient's history dates back to 2012 when he was found to have an adenocarcinoma of the rectum. His surgeon was Dr. Juarez. His medical oncologist was Dr. Sims, who just retired this past week. The patient was treated with chemotherapy and radiation and then went on to have a rectosigmoid resection and biopsy of the bladder with colostomy on 02/20/2013. The final pathologic stage was T3 N0. Following this, it is my understanding that he received additional chemotherapy. He unfortunately developed recurrent disease and on November 01, 2014, had a needle biopsy of the liver revealing metastatic adenocarcinoma consistent with his previous rectal cancer. He was treated with chemotherapy and in conversation with Dr. Sims this evening received FOLFOX and I believe Avastin. He developed an allergy to the oxaliplatin and most recently has been receiving Avastin, 5-FU, and leukovorin. His last chemotherapy was 06/02/2016 when he received Avastin 380 milligrams, leukovorin and 5-FU 750 mg IV and 4600 mg over 48 hours. Two weeks ago he developed weakness and pain in the left leg and had an ultrasound of the left leg on 06/04/2016 which revealed extensive left lower lobe extremity DVT with thrombus present in the common femoral vein, super-femoral vein, popliteal vein extending into the tibial veins. He was started on Xarelto 15 mg twice a day. Over the past week he has had dark stools. He went to the emergency room with increasing abdominal pain, weakness and melena. On 06/15/2016, he was found to have a hemoglobin of 7.4, white count 2,700, platelet count 264,000. His total neutrophil count is 600. He was given packed cells. On 06/16, hemoglobin 12.6, white count 6,300, platelet count 319,000. Lytes, BUN and creatinine are unremarkable. Liver function tests notable for an AST of 108, alk phos is normal at 65, CEA on 06/02/2016 is 9.1, previous value is 5.3. PAST SURGICAL HISTORY: 1. 02/23/2013, exploratory laparotomy with proctosigmoidectomy, Bel pouch and end colostomy performed by Dr. Mart Juarez. 2. 12/24/2013, exploratory laparotomy with extensive lysis of adhesions and revision of colostomy. 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 PAST MEDICAL HISTORY 1. Stage IV adenocarcinoma of the rectum. 2. Hypertension. 3. Neuropathy. 4. DVT, left lower extremity. MEDICATIONS On admission. 1. Xarelto 15 milligrams p.o. b.i.d. 2. Potassium. 3. Nifedipine 60 milligrams once a day. 4. Lisinopril 40 a day. 5. Lortab 5, 325. 6. Gabapentin 300 t.i.d. 7. Doxazosin 4 milligrams a day. 8. Lomotil. 9. Propranolol 50 milligrams a day. ALLERGIES INTOLERANCE to OXALIPLATIN. FAMILY HISTORY Mother is living. Father . The patient had two sisters, one of leukemia. REVIEW OF SYSTEMS Constitution: Weakness, weight loss. No change in vision or hearing. No chest pain, palpitations or shortness of breath. GI: Notable for colostomy and melena for five days. : Difficulty with urination several days ago with dysuria. Musculoskeletal: No bone pain. Neurologic: Generalized weakness. Extremities: Slight swelling in the left leg and pain in the left thigh. Neurologic: Left leg weakness. numbness in extremities Psychiatric: Patient discouraged. PHYSICAL EXAMINATION: The physical exam reveals a gentleman who appears much older than his stated age. Head is normocephalic. Sclera and conjunctivae are normal. Oral pharynx, multiple teeth missing. He has bad thrush. There is no adenopathy. Heart: Regular rhythm. Lungs: Clear. Abdomen: Colostomy with dark stool. There is definite tenderness in the right mid abdominal area, easily reproducible, no mass but there is mild guarding. Extremities: No edema. Muscle wasting. hyperpigmentation Neurologic: Slight left leg weakness with some tenderness of the left thigh. Psychiatric: Patient depressed, answers questions appropriately. ASSESSMENT/PLAN: -GI bleeding with the patient on Xarelto for DVT. Xarelto has been discontinued. He will undergo endoscopy. The Xarelto cannot be resumed given the severity of the GI bleeding. I am going to ask for placement of inferior vena cava umbrella as he cannot be anticoagulated and is at significant risk of developing a pulmonary emboli. -Abdominal pain, right side. CT of the abdomen and pelvis to be compared with previous films. I suspect he has progressive metastatic rectal cancer as reflected by the rising CEA and the fact that his performance status is decreasing. If he has progressiva metastatic rectal cancer will change to an irinotecan based regimen and consider the addition of Erbitux as he is kras wild type -He has thrush. Will begin Diflucan. If he has progressive disease, we will look to treat with irinotecan based regimen. I would discontinue the Avastin because of the thrombosis and he would be a candidate for Erbitux as he does not have a KRAS mutation. MD VALENTIN Santos/ERVIN /8:50 PM /10:03 PM POORNIMA
[2016-06-17] VITALS (8 sets, daily range): BP systolic 133–157; BP diastolic 78–99; PULSE 57–77; RESP 18–20; TEMP 97.4–99.1; O2SAT 94–100
[2016-06-17] MEDS: PANTOPRAZOLE INJ 80 MG in SODIUM CHLORIDE 0.9% INJ 100 ML IV SCH (01:38)
[2016-06-17] MEDS ORDERED: DIATRIZOATE MEGLUM/DIATRIZOATE SOD 9 ML CUP PO ONE (08:00)
[2016-06-17] MEDS: GABAPENTIN 300 MG CAP PO SCH ×3 (08:32→18:31)
[2016-06-17] MEDS: FLUCONAZOLE 200 MG TAB PO SCH (08:33)
[2016-06-17] MEDS: SODIUM CHLORIDE 0.9% FLUSH 5 ML FLUSH FLUSH SCH ×2 (08:34→21:00)
[2016-06-17] MEDS: MORPHINE SULFATE 4 MG/ML INJ IV PUSH PRN (08:34)
--- NOTE | 2016-06-17 08:59 | HHI.PR ---
Subjective Remarks Follow-up for GI bleed. Patient reports abdominal pain has improved. Prior to being nothing by mouth yesterday he was tolerating soup with no vomiting. He had been having dark output from his ostomy. He has some mild left leg swelling from DVT, denies any pain. No acute concerns at this time. Objective Vitals Vital Signs Date Time Temp Pulse Resp B/P Pulse Ox O2 Delivery O2 Flow Rate FiO2 06/17/16 07:31 98.2 62 18 137/91 100 06/17/16 04:28 99.1 62 20 146/88 95 06/17/16 00:55 57 06/17/16 00:33 97.4 62 20 136/78 94 06/16/16 20:11 97.2 58 19 115/80 98 06/16/16 18:14 20 06/16/16 16:00 97.0 62 18 143/92 97 06/16/16 12:00 97.6 60 18 154/92 98 06/16/16 11:29 52 I/O 06/16/16 06/16/16 06/16/16 06/17/16 06/17/16 06/17/16 07:00 15:00 23:00 07:00 15:00 23:00 Intake Total 843 ml Output Total 1350 ml 350 ml Balance 843 ml -1350 ml -350 ml Intake IV Total 843 ml Output Urine Total 1350 ml 350 ml # Voids 2 1 Result Diagram: 06/16/16 1310 06/16/16 1310 Objective Remarks GENERAL: Well-developed well-nourished. In no acute distress. SKIN: Warm and dry. No lesions noted. HEENT: Normocephalic. Pupils equal and round. Mucous membranes pink and moist. CARDIOVASCULAR: Regular rate and rhythm. No murmur appreciated. RESPIRATORY: No accessory muscle use. Clear to auscultation. Breath sounds equal bilaterally. GASTROINTESTINAL: Abdomen soft, non-tender, nondistended. Bowel sounds x4. Ostomy in place in LLQ with brown stool. MUSCULOSKELETAL: Slight left lower extremity swelling. No clubbing or cyanosis. NEUROLOGICAL: Awake and alert. No focal neurological deficits. Moves upper and lower extremities spontaneously. Normal speech. PSYCHIATRIC: Appropriate mood and affect; insight and judgment normal. 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 Continue IV Protonix. Hold Xarelto. Preop EKG. Acute anemia from blood loss: As above. Presented with hemoglobin 7.4, previously 11 on 06/02/16. Hemoglobin improved to 12 after transfusion with 2 units PRBCs. Follow-up CBC. Left lower extremity DVT: Patient's oncologist consulted. Will not tolerate full anticoagulation, will plan to have IR place IVC filter. Metastatic colon cancer: Oncology consulted, ordered abdominal CT. Continue IV narcotics for pain control as needed for now. Hypertension: Reasonably controlled. Continue home lisinopril and atenolol. Reconcile home calcium channel mario and resume. Mild hypokalemia: Potassium 3.4. Replaced orally. Follow-up BMP and mag level. 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 Cannot have chemoprophylaxis with bleeding as above. IVC filter to be placed. Discharge Planning Disposition pending clinical course Attending Statement The exam, history, and the medical decision-making described in the above note were completed with the assistance of the mid-level provider. I reviewed and agree with the findings presented. I attest that I had a [id number] encounter with the patient on the same day, and personally performed and documented my assessment and findings in the medical record. Problem Qualifiers (1) GI bleed: Qualified Code: K92.2 - Gastrointestinal hemorrhage, unspecified gastrointestinal hemorrhage type Franco Hart Jun 17, 2016 08:59 Jamar Washington MD Jul 06, 2016 03:13
[2016-06-17] MEDS: ATENOLOL 50 MG TAB PO SCH (09:00)
[2016-06-17 10:20] LABS: WHITE BLOOD COUNT 9.7 TH/MM3 (4.0-11.0)
[2016-06-17 10:21] LABS: HEMATOCRIT 38.8 % (39.0-51.0); MEAN CELL VOLUME 83.3 FL (80.0-100.0); MEAN CORPUSCULAR HEMOGLOBIN 28.4 PG (27.0-34.0); MEAN CORPUSCULAR HGB CONC 34.1 % (32.0-36.0); PLATELET COUNT 314 TH/MM3 (150-450); RED BLOOD COUNT 4.65 MIL/MM3 (4.50-5.90); RED CELL DISTRIBUTION WIDTH 16.8 % (11.6-17.2)
[2016-06-17 10:29] LABS: APTT (PATIENT) 24.5 SEC (24.3-30.1); INTERNATIONAL NORMALIZED RATIO 1.3 RATIO
[2016-06-17 10:38] LABS: HEMO FLAGS AUTO DIFF
[2016-06-17 10:52] LABS: ALKALINE PHOSPHATASE 81 U/L (45-117); ALT (GPT) 38 U/L (12-78); ANION GAP 10 MEQ/L (5-15); AST (GOT) 26 U/L (15-37); BICARBONATE 28.6 MEQ/L (21.0-32.0); BLOOD UREA NITROGEN 23 MG/DL (7-18); CHLORIDE 100 MEQ/L (98-107); GLOMERULAR FILTRATION RATE 77 ML/MIN (>89); MAGNESIUM 2.1 MG/DL (1.5-2.5); SODIUM (NA) 139 MEQ/L (136-145); TOTAL BILIRUBIN ADULT 0.9 MG/DL (0.2-1.0)
[2016-06-17 10:54] LABS: POTASSIUM 2.9 MEQ/L (3.5-5.1)
--- NOTE | 2016-06-17 11:05 | HHI.GIFU ---
Subjective Remarks Pt doing well, reports mild abdominal pain in Right lower quadrant. light brown stool in colostomy bag. NPO for EGD today. Objective Vitals I&O Vital Signs Date Time Temp Pulse Resp B/P Pulse Ox O2 Delivery O2 Flow Rate FiO2 06/17/16 07:31 98.2 62 18 137/91 100 06/17/16 04:28 99.1 62 20 146/88 95 06/17/16 00:55 57 06/17/16 00:33 97.4 62 20 136/78 94 06/16/16 20:11 97.2 58 19 115/80 98 06/16/16 18:14 20 06/16/16 16:00 97.0 62 18 143/92 97 06/16/16 12:00 97.6 60 18 154/92 98 06/16/16 11:29 52 I/O 06/16/16 06/16/16 06/16/16 06/17/16 06/17/16 06/17/16 07:00 15:00 23:00 07:00 15:00 23:00 Intake Total 843 ml Output Total 1350 ml 350 ml Balance 843 ml -1350 ml -350 ml Intake IV Total 843 ml Output Urine Total 1350 ml 350 ml # Voids 2 1 Laboratory Laboratory Tests Test 06/16/16 06/17/16 13:10 09:49 White Blood Count 6.3 9.7 Red Blood Count 4.46 4.65 Hemoglobin 12.6 13.2 Hematocrit 37.0 38.8 Mean Corpuscular Volume 83.0 83.3 Mean Corpuscular Hemoglobin 28.2 28.4 Mean Corpuscular Hemoglobin 34.0 34.1 Concent Red Cell Distribution Width 17.1 16.8 Platelet Count 319 314 Mean Platelet Volume 8.5 9.0 Neutrophils (%) (Auto) 65.5 Lymphocytes (%) (Auto) 14.9 Monocytes (%) (Auto) 19.3 Eosinophils (%) (Auto) 0.0 Basophils (%) (Auto) 0.3 Neutrophils # (Auto) 4.1 Lymphocytes # (Auto) 0.9 Monocytes # (Auto) 1.2 Eosinophils # (Auto) 0.0 Basophils # (Auto) 0.0 CBC Comment AUTO DIFF AUTO DIFF Differential Total Cells 100 Counted Neutrophils % (Manual) 47 Band Neutrophils % 14 Lymphocytes % 16 Monocytes % 19 Neutrophils # (Manual) 4.1 Metamyelocytes 3 Myelocytes 1 Nucleated Red Blood Cells 2 Differential Comment FINAL DIFF MANUAL Platelet Estimate NORMAL Platelet Morphology Comment NORMAL Target Cells 1+ Ovalocytes 1+ Acanthocytes Keratocytes Sodium Level 141 139 Potassium Level 3.4 2.9 Chloride Level 103 100 Carbon Dioxide Level 27.8 28.6 Anion Gap 10 10 Blood Urea Nitrogen 26 23 Creatinine 1.17 1.19 Estimat Glomerular Filtration 78 77 Rate Random Glucose 104 102 Calcium Level 9.1 9.5 Prothrombin Time 14.0 Prothromb Time International 1.3 Ratio Activated Partial 24.5 Thromboplast Time Magnesium Level 2.1 Total Bilirubin 0.9 Aspartate Amino Transf 26 (AST/SGOT) Alanine Aminotransferase 38 (ALT/SGPT) Alkaline Phosphatase 81 Total Protein 8.4 Albumin 2.1 Physical Exam HEENT: Pupils round and reactive to light; normocephalic; atraumatic; no jaundice. Throat is clear. ABDOMEN: Soft, nondistended, mild tenderness on deep palpation in RLQ. Light brown stool in colostomy bag, no gross bleeding noted. EXTREMITIES: No clubbing, cyanosis, or edema. SKIN: Normal; no rash; no jaundice. 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 Assessment and Plan Assessment: (1) GI bleed (2) Colon cancer Plan 1. Melena/Anemia - concerns for Upper GI source in the setting of chronic anticoagulation with Pradaxa, no further episodes noted - continue supportive care - monitor H&H daily, transfuse as needed to keep hb > 7 - continue PPI drip for now - plan for EGD today - NPO for procedure 2. Metastatic Colon Cancer - s/p colectomy, on chemotherapy - follow Oncology recs Problem Qualifiers (1) GI bleed: Qualified Code: K92.2 - Gastrointestinal hemorrhage, unspecified gastrointestinal hemorrhage type Saji Garnica MD Jun 17, 2016 11:04
[2016-06-17] MEDS ORDERED: PROPOFOL 200 MG/20 ML AMP IV ONE (11:14)
--- NOTE | 2016-06-17 11:31 | PD.PROCEDR ---
GI Procedure PROCEDURE DATE: Jun 17, 2016 PROCEDURE PERFORMED EGD: The Pentax videoscope was introduced through the oropharynx and advanced to the second portion of the duodenum under direct visualization. Retroflexion was performed in the stomach. FINDINGS: - normal esophagus - normal gastric mucosa - normal duodenum ESTIMATED BLOOD LOSS: none COMPLICATIONS: none IMPRESSION: - normal examn PLAN: - return to floor - can D/C PPI drip - recommend PPI 20mg PO daily for management of heartburn/reflux and GI prophylaxis - can resume anticoagulation, if bleeding continues consider colonoscopy thru ostomy vs enteroscopy - resume diet Saji Garnica MD Jun 17, 2016 11:31
[2016-06-17 11:42] LABS: BANDS 5 % (0-6); CORRECTED NUCLEATED RBC 4 /100 WBC (0-0); METAMYELOCYTES 3 % (0-1); MYELOCYTES 2 % (0-0); NEUTROPHIL # MANUAL DIFF 5.3 TH/MM3 (1.8-7.7); POLYS (SEG NEUTROPHILS) 44 % (16-70); PROMYELOCYTES 1 % (0-0); WBC DIFF SAMPLE 100
[2016-06-17 11:43] LABS: SCAN/DIFF FINAL DIFF MANUAL
[2016-06-17 11:45] LABS: PLATELET ESTIMATE SMEAR NORMAL (NORMAL)
[2016-06-17 11:47] LABS: PLATELET MORPHOLOGY CLUMPED (NORMAL); TOXIC GRANULATION 1+ (NORMAL)
[2016-06-17] MEDS ORDERED: POTASSIUM CHLORIDE 20 MEQ CONTROLLED RELEASE TAB PO ONE (12:00)
[2016-06-17] MEDS: LISINOPRIL 20 MG TAB PO SCH (12:28)
[2016-06-17] MEDS ORDERED: IOHEXOL 350 MG/ML 10 ML VIAL (for RAD DIAG) IV ONE (15:58)
--- NOTE | 2016-06-17 16:11 | RADRPT ---
EXAM DATE/TIME: 06/17/2016 15:28 [facility] COMPARISON: CT ABDOMEN & PELVIS W CONTRAST, February 13, 2014, 10:47. INDICATIONS : Right lower abdomen pain. IV CONTRAST: 75 cc Omnipaque 350 (iohexol) IV ORAL CONTRAST: Prescribed oral contrast ingested. RADIATION DOSE: 9.96 CTDIvol (mGy) MEDICAL HISTORY : Hypertension. Carcinoma, colon. SURGICAL HISTORY : Colon resection. ENCOUNTER: Initial ACUITY: 3 days PAIN SCALE: 2/10 LOCATION: Right lower quadrant Abdomen TECHNIQUE: Volumetric scanning of the abdomen and pelvis was performed. Using automated exposure control and ad justment of the mA and/or kV according to patient size, radiation dose was kept as low as reasonably achievable to obtain optimal diagnostic quality images. FINDINGS: LOWER LUNGS: The visualized lower lungs are clear. LIVER: Homogeneous density without lesion. The previously noted area of low-density within the left lateral segment is not visible on this exam. This may represent an area of volume averaging on prior exam. T here is no dilation of the biliary tree. No calcified gallstones. SPLEEN: Normal size without lesion. PANCREAS: Within normal limits. KIDNEYS: Normal in size and shape. There is no mass, stone or hydronephrosis. ADRENAL GLANDS: Within normal limits. VASCULAR: There is no aortic aneurysm. BOWEL/MESENTERY: The patient is status post partial sigmoid colectomy with stable appearance of left lower quadrant co lostomy and multiple small bowel loops closely adherent to the anterior abdominal wall consistent wit h adhesion. Within the right pelvis and presacral soft tissues there is an abnormal irregular low-den sity rim-enhancing fluid collection consistent with abscess. There is wall thickening of the bladder adjacent to this fluid collection consistent with inflammation. A curvilinear fluid collection seen t o the right aspect of the bladder is shown on the coronal images to be contiguous with the fluid essence ection in the presacral space. The largest dimensions of this fluid collection are seen within the pr esacral space measuring 2.7 x 3.3 x 4.2 cm. RETROPERITONEUM: There is no lymphadenopathy. BLADDER: Wall thickening as noted above. REPRODUCTIVE: Within normal limits. INGUINAL: There is no lymphadenopathy or hernia. MUSCULOSKELETAL: Within normal limits for patient age. CONCLUSION: Abnormal rim-enhancing fluid collection identified within the pelvis adjacent to the right aspect of the bladder and continuous with the presacral space. This appearance is consistent wi th abscess. The previously noted low density lesion within the left lateral segment of the liver as v isualized on this exam. Ariella Meadows MD on June 17, 2016 at 15:58 Board Certified Radiologist. This report was verified electronically.
[2016-06-17] MEDS: AMPICILLIN-SULBACTAM INJ 3 GM in SODIUM CHLORIDE 0.9% INJ 100 ML IV SCH (18:32)
--- NOTE | 2016-06-17 19:38 | EKG ---
Date Performed: 06/17/2016 Time Performed: 08:25:10 PTAGE: 55 years EKG: JUNCTIONAL RHYTHM LEFT ANTERIOR FASCICULAR BLOCK LEFT VENTRICULAR HYPERTROPHY AND ST-T OH GE ABNORMAL ECG Compared to prior tracing no significant change DOCTOR: Gaurav Sosa Interpretating Date/Time 06/17/2016 19:38:20
[2016-06-17] MEDS: DOXAZOSIN MESYLATE 4 MG TAB PO SCH (22:39)
[2016-06-18] VITALS (12 sets, daily range): BP systolic 112–152; BP diastolic 65–92; PULSE 57–96; RESP 16–20; TEMP 96.9–98.5; O2SAT 94–100
[2016-06-18] MEDS: AMPICILLIN-SULBACTAM INJ 3 GM in SODIUM CHLORIDE 0.9% INJ 100 ML IV SCH ×3 (00:43→17:02)
--- NOTE | 2016-06-18 07:31 | MB ---
cc: ITZEL SZYMANSKI M.D. DATE OF CONSULTATION June 18, 2016 CHIEF COMPLAINT Pelvic abscess. HISTORY OF PRESENT ILLNESS The patient is a 55-year-old male who is well known to my partner, Dr. Juarez. He was diagnosed with rectal cancer in 2012 and underwent a rectosigmoid resection with Bel's pouch and end-colostomy. Initial staging was T3 N0; however, he was noted in 2014 to have metastatic disease to the liver. At some point, he did have a revision of his colostomy with Dr. Juarez and has been receiving ongoing chemotherapy with FOLFOX and Avastin. He recently developed an ALLERGY TO OXALIPLATIN and has been undergoing treatment with Avastin, 5-FU and leucovorin. Most recent chemotherapy was about two weeks ago. He then began having pain and weakness in his leg and was noted to have a DVT and was placed on Xarelto. He came to the hospital with dark stools, increasing abdominal pain, weakness and melena. On admission three days ago he was noted to have a hemoglobin of 7.4, white count of 2.7 and platelets of 264. According to the patient, he has had pain for about two weeks. It is mostly on the right side, mid-abdominal level. He denies any nausea, vomiting, diarrhea or constipation via the bag. On the CT scan obtained, he appears to have a small pelvic abscess. PAST MEDICAL HISTORY 1. Colon cancer. 2. Hypertension. 3. DVT. PAST SURGICAL HISTORY 1. Rectosigmoid resection with end-colostomy and Bel's pouch. 2. Revision of colostomy. ALLERGIES None. MEDICATIONS See nurse's notes for details. REVIEW OF SYSTEMS Positive for fatigue, negative for fevers, chills, change in weight, headache, chest pain. Positive shortness of breath. Negative for dysuria, hematuria or difficulty with ambulation, difficulty with mood or mentation. PHYSICAL EXAMINATION GENERAL: Physical exam reveals a thin male who appears comfortable. NEURO: Grossly intact. SKIN: Warm and dry. CARDIOVASCULAR: Regular rate. CHEST: Breathing is symmetric bilaterally and nonlabored. ABDOMEN: Soft, nondistended. He is mildly tender to palpation more on the right than the left. The patient has a colostomy in the left lower quadrant. EXTREMITIES: No edema. LABORATORY WORK White count of 9.7 this morning, hemoglobin of 13.2 and platelets of 314. Chemistry shows a sodium of 139, potassium of 2.9, chloride is 100, bicarb is 28.6, BUN 23, creatinine is 1.19 and glucose is 102. Coagulations are diffusely normal. The urinalysis is negative. IMPRESSION Pelvic abscess. PLAN I will see if they can perform a CT-guided drainage of the pelvic abscess. Thank you very much. MD JEWELS Bustillo/SSB /6:54 AM /7:13 AM MTDD
[2016-06-18] MEDS: MORPHINE SULFATE 4 MG/ML INJ IV PUSH PRN ×2 (07:35→14:09)
[2016-06-18] MEDS: LISINOPRIL 20 MG TAB PO SCH (07:36)
[2016-06-18] MEDS: FLUCONAZOLE 200 MG TAB PO SCH (07:36)
[2016-06-18] MEDS: PANTOPRAZOLE SOD 20 MG DELAYED RELEASE TAB PO SCH (07:37)
[2016-06-18] MEDS: ATENOLOL 50 MG TAB PO SCH (07:37)
[2016-06-18] MEDS: SODIUM CHLORIDE 0.9% FLUSH 5 ML FLUSH FLUSH SCH ×2 (07:37→20:59)
[2016-06-18] MEDS: GABAPENTIN 300 MG CAP PO SCH ×3 (07:37→17:02)
[2016-06-18 07:48] LABS: HEMATOCRIT 35.8 % (39.0-51.0); MEAN CELL VOLUME 83.5 FL (80.0-100.0); MEAN CORPUSCULAR HEMOGLOBIN 27.9 PG (27.0-34.0); MEAN CORPUSCULAR HGB CONC 33.4 % (32.0-36.0); PLATELET COUNT 257 TH/MM3 (150-450); RED BLOOD COUNT 4.29 MIL/MM3 (4.50-5.90); RED CELL DISTRIBUTION WIDTH 16.7 % (11.6-17.2); WHITE BLOOD COUNT 7.9 TH/MM3 (4.0-11.0)
[2016-06-18 07:50] LABS: HEMO FLAGS AUTO DIFF
[2016-06-18 08:12] LABS: BICARBONATE 27.4 MEQ/L (21.0-32.0)
[2016-06-18 08:16] LABS: POTASSIUM 2.8 MEQ/L (3.5-5.1)
[2016-06-18] MEDS ORDERED: POTASSIUM CHLORIDE 20 MEQ CONTROLLED RELEASE TAB PO ONE (08:30)
[2016-06-18] MEDS ORDERED: POTASSIUM CHLOR 20 MEQ PREMIX 100 ML IV ONE (08:30)
[2016-06-18 09:44] LABS: BANDS 16 % (0-6); METAMYELOCYTES 4 % (0-1); MYELOCYTES 6 % (0-0); NEUTROPHIL # MANUAL DIFF 5.1 TH/MM3 (1.8-7.7); POLYS (SEG NEUTROPHILS) 38 % (16-70); PROMYELOCYTES 1 % (0-0); WBC DIFF SAMPLE 100
[2016-06-18 09:47] LABS: TOXIC GRANULATION 1+ (NORMAL)
[2016-06-18 09:48] LABS: PLATELET ESTIMATE SMEAR NORMAL (NORMAL); PLATELET MORPHOLOGY NORMAL (NORMAL); SCAN/DIFF FINAL DIFF MANUAL
[2016-06-18] MEDS ORDERED: MIDAZOLAM HCL 2 MG/2 ML VIAL ONE ×3 (09:58→12:25)
[2016-06-18] MEDS ORDERED: IOHEXOL 350 MG/ML 50 ML BTL (for RAD DIAG) ONE (10:40)
--- NOTE | 2016-06-18 11:27 | RADRPT ---
EXAM DATE/TIME: 06/18/2016 10:11 [facility] COMPARISON: No previous studies available for comparison. INDICATIONS : Patient with left leg DVT in need of IVC filter placement. 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 Ultrasound-guided venipuncture. 2. Inferior venacavogram. 3. Inferior vena cava filter placement. 4. Conscious sedation with continuous EKG and oximetry monitoring. The risks, benefits and alternatives to the procedure were explained and verbal and written consent w as obtained. The site was prepped in sterile fashion. Full sterile technique was used, including ca p, mask, sterile gloves and gown and a large sterile sheet. Hand hygiene and 2% chlorhexidine and/or betadine/alcohol prep was utilized per protocol for cutaneous antisepsis. The skin and subcutaneous tissues were infiltrated with local anesthetic solution. With ultrasound and fluoroscopic guidance the targeted vein was punctured and a vascular sheath was p laced. Inferior venacavogram was performed to demonstrate level of renal veins. No caval thrombus was identified. The prescribed filter was deployed in the infrarenal inferior vena cava. Following deplo yment the filter was identified in good position. Conscious sedation was performed with the prescribed dosages and duration as above. The patient dora ated the procedure well and there were no complications. EKG and oximetry remained stable throughout the procedure. The patient was sent to post anesthesia recovery in stable condition. CONCLUSION: Uncomplicated inferior vena cava filter placement as above. Reinier Quijano MD on June 18, 2016 at 11:25 Board Certified Radiologist. This report was verified electronically.
--- NOTE | 2016-06-18 11:33 | PD.RAD ---
Post Procedure Progress Note Pre Procedure Diagnosis: (1) Rectal cancer Post Procedure Diagnosis: (1) Rectal cancer Procedure Date: Jun 18, 2016 Supervising Radiologist: Reinier Quijano Proceduralist/Assist: Nicole Burris, RT(R), Roman Nuñez RT(R) Anesthesia: Conscious Sedation Plan of Activity Patient to Unit: Nursing Unit Patient Condition: Good See PACS Report for procedural detail/treatment Vascular-Venous Procedure Procedure 1 Procedure Site: Abdominal Procedure(s): Retrievable IVC Filter Access Access Site(s): Right Femoral Vein Reinier Quijano MD Jun 18, 2016 11:33
[2016-06-18] MEDS ORDERED: LIDOCAINE 1%/EPINEPHrine 1:100,000 SOLN 20 ML VIAL ONE ×2 (11:36→12:35)
--- NOTE | 2016-06-18 13:22 | RADRPT ---
EXAM DATE/TIME: 06/18/2016 12:06 [facility] COMPARISON: No previous studies available for comparison. INDICATIONS : Pelvic abscess SEDATION TIME: 40 minutes MEDICATION(S): 1.) 4 mg midazolam (Versed) IV 2.) 200 mcg fentanyl (Sublimaze) IV DEVICE(S): 1.) 8 Fr Pato FLUID: Total volume of 6 cc of cloudy, red fluid was removed. Fluid was sent for laboratory ordered studies. MEDICAL HISTORY : Hypertension. Carcinoma, rectal. SURGICAL HISTORY : Colostomy. Colon resection. ENCOUNTER: Initial ACUITY: 1 day PAIN SCORE: 5/10 LOCATION: pelvis PROCEDURE: 1.) Conscious sedation with continuous EKG and oximetry monitoring. 2.) EKG and oximetry remained stable throughout the procedure. PROCEDURE : 1. CT guided drainage of the a perirectal abscess. 2. Conscious sedation with continuous EKG and oximetry monitoring. The risks, benefits and alternatives to the procedure were explained and verbal and written consent w as obtained. The site was prepped in sterile fashion. Full sterile technique was used, including ca p, mask, sterile gloves and gown and a large sterile sheet. Hand hygiene and 2% chlorhexidine and/or betadine/alcohol prep was utilized per protocol for cutaneous antisepsis. The skin and subcutaneous tissues were infiltrated with local anesthetic solution. Using CT guidance the prescribed site was localized. Drainage was performed using the prescribed cat heter. The catheter is in good position within the abscess on the postdrainage film. Fluid was obtain ed and sent for laboratory evaluation. The patient tolerated the procedure well and there were no complications. Conscious sedation was per formed with the prescribed dosages and duration as above. The patient tolerated the procedure well an d there were no complications. EKG and oximetry remained stable throughout the procedure. The patient was sent to post anesthesia recovery in stable condition. CONCLUSION: Uncomplicated CT guided drainage of a perirectal abscess.. Juno Yuen MD on June 18, 2016 at 13:19 Board Certified Radiologist. This report was verified electronically.
--- NOTE | 2016-06-18 16:23 | HHI.PR ---
Subjective Remarks Follow up for GI bleed, DVT, pelvic abscess. The patient is seen s/p IVC filter placement and drainage of pelvic abscess. He reports diffuse pelvic pain, fairly well controlled with IV pain meds. He has no other medical complaints at this time. Objective Vitals Vital Signs Date Time Temp Pulse Resp B/P Pulse Ox O2 Delivery O2 Flow Rate FiO2 06/18/16 16:02 98.2 62 19 152/90 100 06/18/16 15:00 17 06/18/16 14:30 80 16 138/83 94 06/18/16 14:00 84 16 147/92 94 06/18/16 13:30 80 16 131/90 98 06/18/16 13:15 98.0 83 16 136/84 95 06/18/16 11:15 57 16 128/65 95 06/18/16 11:00 98.5 64 16 128/81 95 06/18/16 07:30 98.0 90 18 118/78 99 06/18/16 04:21 98.3 96 20 112/77 95 06/18/16 00:26 98.0 76 20 127/82 96 06/18/16 00:05 73 06/17/16 19:55 97.5 77 20 157/99 100 I/O 06/17/16 06/17/16 06/17/16 06/18/16 06/18/16 06/18/16 07:00 15:00 23:00 07:00 15:00 23:00 Intake Total 200 ml 120 ml Balance 200 ml 120 ml Intake Oral 120 ml Other 200 ml Result Diagram: 06/18/16 0655 06/18/16 0655 Imaging Last Impressions Retroperitoneal Abscess Drainage 06/18/16 1139 Signed Impressions: Service Date/Time: May 12:06 - CONCLUSION: Uncomplicated CT guided drainage of a perirectal abscess.. Juno Yuen MD IVC Filter Placement X-Ray 06/18/16 0000 Signed Impressions: Service Date/Time: May 10:11 - CONCLUSION: Uncomplicated inferior vena cava filter placement as above. Reinier Quijano MD Abdomen/Pelvis CT 06/17/16 0000 Signed Impressions: Service Date/Time: Friday, June 17, 2016 15:28 - CONCLUSION: Abnormal rim-enhancing fluid collection identified within the pelvis adjacent to the right aspect of the bladder and continuous with the presacral space. This appearance is consistent with abscess. The previously noted low density lesion within the left lateral segment of the liver as visualized on this exam. Ariella Meadows MD Objective Remarks GENERAL: Well-nourished, well-developed middle aged male patient in [facility]. SKIN: Warm and dry. No rash. HEAD: Normocephalic. Atraumatic. NECK: Supple. Trachea midline. CARDIOVASCULAR: Regular rate and rhythm. S1, S2 noted. No murmur appreciated. RESPIRATORY: No accessory muscle use. Clear to auscultation. Breath sounds equal bilaterally. GASTROINTESTINAL: Abdomen soft, non-tender, nondistended. Normoactive bowel sounds x4. Ostomy in place in LLQ with brown stool. MUSCULOSKELETAL: No obvious deformities. Mild LLE edema. Right posterior pelvis with drain in place. NEUROLOGICAL: Awake and alert. No obvious cranial nerve deficits. Motor grossly within normal limits. Normal speech. PSYCHIATRIC: Appropriate mood and affect; insight and judgment normal. Medications and IVs Current Medications Medications (Trade) Dose Ordered Sig/John Route Start Time Stop Time Status Last Admin (NS Flush) 2 ml UNSCH PRN FLUSH 06/15/16 21:30 (NS Flush) 2 ml BID FLUSH 06/16/16 09:00 06/18/16 07:37 (Zofran Inj) 4 mg Q6H PRN IVP 06/15/16 21:30 (Narcan Inj) 0.4 mg UNSCH PRN IV 06/15/16 21:30 (Morphine Inj) 2 mg Q3H PRN IV PUSH 06/16/16 01:45 06/18/16 14:09 (Tenormin) 50 mg DAILY PO 06/16/16 09:00 06/18/16 07:37 (Cardura) 4 mg HS PO 06/16/16 21:00 06/17/16 22:39 (Neurontin) 300 mg TID PO 06/16/16 09:00 06/18/16 07:37 (Diflucan) 200 mg DAILY PO 06/17/16 09:00 06/18/16 07:36 (Prinivil) 40 mg DAILY PO 06/17/16 09:00 06/18/16 07:36 Pantoprazole Sodium 20 mg 20 mg DAILY PO 06/18/16 09:00 06/18/16 07:37 (Unasyn Inj/NS Inj) 100 ml @ 200 mls/hr Q6H IV 06/17/16 18:00 06/18/16 05:32 A/P Problem List: (1) GI bleed ICD Code: K92.2 Status: Acute (2) Left leg DVT ICD Code: I82.402 Status: Acute (3) Colon cancer metastasized to multiple sites ICD Code: C18.9 Status: Chronic Assessment and Plan 55-year-old male with past medical history of metastatic colon cancer on chemotherapy, recently diagnosed LLE DVT, and HTN who presented with dark stools after starting on Xarelto Likely upper GI bleed: Holding Xarelto. Patient's metal bumper consulted, EGD 06/17/16 normal, GI recommends continuing PPI 20mg po daily. Preop EKG reviewed, stable. Acute anemia from blood loss: As above. Presented with hemoglobin 7.4, previously 11 on 06/02/16. Hemoglobin improved to 12 after transfusion with 2 units PRBCs. Monitor CBC. Left lower extremity DVT: Patient's oncologist consulted. Will not tolerate full anticoagulation. IVC filter placed 06/18/16. Metastatic colon cancer: Oncology consulted, ordered abdominal CT which showed pelvic abscess, see below. Continue IV narcotics for pain control as needed for now. Pelvic Abscess: seen on abdominal CT. S/p CT-guided drainage of pelvic abscess on 06/18, now has drain in place. Hypertension: Reasonably controlled. Continue home lisinopril and atenolol. BP fairly well controlled. Mild hypokalemia: Potassium 3.4. Replaced orally. K 2.8 today. Given po and IV KCl replacement. Mag 1.8. Repeat BMP tomorrow. 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 Cannot have chemoprophylaxis with bleeding as above. IVC placed 06/18. Written by Catherine Munoz, acting as scribe for Dr. Álvarez on 06/18/16 at 15: 35. The documentation accurately reflects the work performed [id number] by me on at 1535 Problem Qualifiers (1) GI bleed: Qualified Code: K92.2 - Gastrointestinal hemorrhage, unspecified gastrointestinal hemorrhage type Catherine Munoz PA-C Jun 18, 2016 16:23 Joel Álvarez MD Jun 18, 2016 16:43
[2016-06-18] MEDS ORDERED: ACETAMINOPHEN/HYDROcodone 325 MG/5 MG TAB PO PRN (16:30)
--- NOTE | 2016-06-18 16:38 | HHI.GIFU ---
Subjective Remarks Pt has no new complaints, denies abdominal pain. Brown stool in colostomy bag. Objective Vitals I&O Vital Signs Date Time Temp Pulse Resp B/P Pulse Ox O2 Delivery O2 Flow Rate FiO2 06/18/16 16:02 98.2 62 19 152/90 100 06/18/16 15:00 17 06/18/16 14:30 80 16 138/83 94 06/18/16 14:00 84 16 147/92 94 06/18/16 13:30 80 16 131/90 98 06/18/16 13:15 98.0 83 16 136/84 95 06/18/16 11:15 57 16 128/65 95 06/18/16 11:00 98.5 64 16 128/81 95 06/18/16 07:30 98.0 90 18 118/78 99 06/18/16 04:21 98.3 96 20 112/77 95 06/18/16 00:26 98.0 76 20 127/82 96 06/18/16 00:05 73 06/17/16 19:55 97.5 77 20 157/99 100 I/O 06/17/16 06/17/16 06/17/16 06/18/16 06/18/16 06/18/16 07:00 15:00 23:00 07:00 15:00 23:00 Intake Total 200 ml 120 ml Balance 200 ml 120 ml Intake Oral 120 ml Other 200 ml Laboratory Laboratory Tests Test 06/18/16 06:55 White Blood Count 7.9 Red Blood Count 4.29 Hemoglobin 11.9 Hematocrit 35.8 Mean Corpuscular Volume 83.5 Mean Corpuscular Hemoglobin 27.9 Mean Corpuscular Hemoglobin 33.4 Concent Red Cell Distribution Width 16.7 Platelet Count 257 Mean Platelet Volume 8.6 Neutrophils (%) (Auto) Lymphocytes (%) (Auto) Monocytes (%) (Auto) Eosinophils (%) (Auto) Basophils (%) (Auto) Neutrophils # (Auto) Lymphocytes # (Auto) Monocytes # (Auto) Eosinophils # (Auto) Basophils # (Auto) CBC Comment AUTO DIFF Differential Total Cells 100 Counted Neutrophils % (Manual) 38 Band Neutrophils % 16 Lymphocytes % 19 Monocytes % 16 Neutrophils # (Manual) 5.1 Metamyelocytes 4 Myelocytes 6 Promyelocytes 1 Differential Comment FINAL DIFF MANUAL Toxic Granulation 1+ Platelet Estimate NORMAL Platelet Morphology Comment NORMAL Red Cell Morphology Comment NORMAL Sodium Level 139 Potassium Level 2.8 Chloride Level 100 Carbon Dioxide Level 27.4 Anion Gap 12 Blood Urea Nitrogen 19 Creatinine 1.09 Estimat Glomerular Filtration 85 Rate Random Glucose 92 Calcium Level 8.4 Magnesium Level 1.8 Date/Time Procedure Status Source Growth 06/18/16 12:45 Gram Stain Received Abscess Other Pending 06/18/16 12:45 Wound Culture Received Abscess Other Pending Physical Exam HEENT: Pupils round and reactive to light; normocephalic; atraumatic; no jaundice. Throat is clear. ABDOMEN: Soft, nondistended, mild tenderness on deep palpation in RLQ. Light brown stool in colostomy bag, no gross bleeding noted. EXTREMITIES: No clubbing, cyanosis, or edema. SKIN: Normal; no rash; no jaundice. 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 Assessment and Plan Assessment: (1) GI bleed (2) Colon cancer Plan 1. Melena/Anemia - in the setting of chronic anticoagulation with Pradaxa, no further episodes noted since admission - EGD was unremarkable - can resume anticoagulation when appropriate - if bleeding recurs, may consider performing colonoscopy thru colostomy vs enteroscopy 2. Metastatic Colon Cancer - s/p colectomy, on chemotherapy - follow Oncology recs 3.Pelvic abscess - s/p drainage - on Unasyn At this time GI will sign off, please call with any questions. Thank you for this consult. Problem Qualifiers (1) GI bleed: Qualified Code: K92.2 - Gastrointestinal hemorrhage, unspecified gastrointestinal hemorrhage type Saji Garnica MD Jun 18, 2016 16:38
[2016-06-18] MEDS: ACETAMINOPHEN/HYDROcodone 325 MG/7.5 MG TAB PO PRN ×2 (17:02→20:59)
[2016-06-18] MEDS: DOXAZOSIN MESYLATE 4 MG TAB PO SCH (20:59)
--- NOTE | 2016-06-18 22:13 | PD.ONC.PN ---
Subjective Subjective Remarks tired and comfortable. Objective Data Date Time Temp Pulse Resp B/P Pulse Ox O2 Delivery O2 Flow Rate FiO2 06/18/16 20:00 96.9 67 17 118/80 98 06/18/16 18:02 17 06/18/16 16:02 98.2 62 19 152/90 100 06/18/16 15:00 17 06/18/16 14:30 80 16 138/83 94 06/18/16 14:00 84 16 147/92 94 06/18/16 13:30 80 16 131/90 98 06/18/16 13:15 98.0 83 16 136/84 95 06/18/16 11:15 57 16 128/65 95 06/18/16 11:00 98.5 64 16 128/81 95 06/18/16 07:30 98.0 90 18 118/78 99 06/18/16 04:21 98.3 96 20 112/77 95 06/18/16 00:26 98.0 76 20 127/82 96 06/18/16 00:05 73 06/18/16 06/18/16 06/18/16 07:00 15:00 23:00 Intake Total 120 ml Balance 120 ml Result Diagram: 06/18/16 0655 06/18/16 1548 Laboratory Results Laboratory Tests Test 06/18/16 06/18/16 06:55 15:48 White Blood Count 7.9 TH/MM3 Red Blood Count 4.29 MIL/MM3 Hemoglobin 11.9 GM/DL Hematocrit 35.8 % Mean Corpuscular Volume 83.5 FL Mean Corpuscular Hemoglobin 27.9 PG Mean Corpuscular Hemoglobin 33.4 % Concent Red Cell Distribution Width 16.7 % Platelet Count 257 TH/MM3 Mean Platelet Volume 8.6 FL Neutrophils (%) (Auto) % Lymphocytes (%) (Auto) % Monocytes (%) (Auto) % Eosinophils (%) (Auto) % Basophils (%) (Auto) % Neutrophils # (Auto) TH/MM3 Lymphocytes # (Auto) TH/MM3 Monocytes # (Auto) TH/MM3 Eosinophils # (Auto) TH/MM3 Basophils # (Auto) TH/MM3 CBC Comment AUTO DIFF Differential Total Cells 100 Counted Neutrophils % (Manual) 38 % Band Neutrophils % 16 % Lymphocytes % 19 % Monocytes % 16 % Neutrophils # (Manual) 5.1 TH/MM3 Metamyelocytes 4 % Myelocytes 6 % Promyelocytes 1 % Differential Comment FINAL DIFF MANUAL Toxic Granulation 1+ Platelet Estimate NORMAL Platelet Morphology Comment NORMAL Red Cell Morphology Comment NORMAL Sodium Level 139 MEQ/L Potassium Level 2.8 MEQ/L 4.2 MEQ/L Chloride Level 100 MEQ/L Carbon Dioxide Level 27.4 MEQ/L Anion Gap 12 MEQ/L Blood Urea Nitrogen 19 MG/DL Creatinine 1.09 MG/DL Estimat Glomerular Filtration 85 ML/MIN Rate Random Glucose 92 MG/DL Calcium Level 8.4 MG/DL Magnesium Level 1.8 MG/DL Culture Results Microbiology Date/Time Procedure Status Source Growth 06/18/16 12:45 Gram Stain Received Abscess Other Pending 06/18/16 12:45 Wound Culture Received Abscess Other Pending Imaging Studies Last 24 hours Impressions Retroperitoneal Abscess Drainage 06/18/16 1139 Signed Impressions: Service Date/Time: May 12:06 - CONCLUSION: Uncomplicated CT guided drainage of a perirectal abscess.. Juno Yuen MD IVC Filter Placement X-Ray 06/18/16 0000 Signed Impressions: Service Date/Time: May 10:11 - CONCLUSION: Uncomplicated inferior vena cava filter placement as above. Reinier Quijano MD Administered Medications Medications (Trade) Dose Ordered Sig/John Route PRN Reason Start Time Stop Time Status Last Admin Dose Admin IV Flush (NS Flush) 2 ml BID FLUSH 06/16/16 09:00 06/18/16 20:59 Morphine Sulfate (Morphine Inj) 2 mg Q3H PRN IV PUSH pain >5 06/16/16 01:45 06/18/16 14:09 Atenolol (Tenormin) 50 mg DAILY PO 06/16/16 09:00 06/18/16 07:37 Doxazosin Mesylate (Cardura) 4 mg HS PO 06/16/16 21:00 06/18/16 20:59 Gabapentin (Neurontin) 300 mg TID PO 06/16/16 09:00 06/18/16 17:02 Fluconazole (Diflucan) 200 mg DAILY PO 06/17/16 09:00 06/18/16 07:36 Lisinopril (Prinivil) 40 mg DAILY PO 06/17/16 09:00 06/18/16 07:36 Pantoprazole Sodium 20 mg 20 mg DAILY PO 06/18/16 09:00 06/18/16 07:37 Ampicillin Sodium/ Sulbactam Sodium/ Sodium Chloride (Unasyn Inj/NS Inj) 100 ml @ 200 mls/hr Q6H IV 06/17/16 18:00 06/18/16 17:02 Acetaminophen/ Hydrocodone Bitart ([place] 7.5-325 Mg) 1 tab Q4H PRN PO PAIN SCALE 6 TO 10 06/18/16 16:30 06/18/16 20:59 Objective Remarks GENERAL: chronically ill male in no acute distress SKIN: Warm and dry. HEAD: Normocephalic. EYES: No scleral icterus. No injection or drainage. NECK: Supple, trachea midline. No JVD or lymphadenopathy. Oral pharynx- thrush LYMPHATIC: No adenopathy. CARDIOVASCULAR: Regular rate and rhythm without murmurs. RESPIRATORY: Breath sounds equal bilaterally. No accessory muscle use. GASTROINTESTINAL: no tenderness in right side of abd since drainage procedure and introduction of antibiotcs EXTREMITIES: No cyanosis, or edema. MUSCULOSKELETAL: muscle wasting. NEUROLOGICAL: No obvious focal deficit. Awake, alert, and oriented x3. PSYCHIATRIC: quiet and withdrawn. Assessment/Plan Assessment 1: probable abscess in pelvis- clinically better and would continue antibiotics and await gram stain and culture. would repeat ct abd and pelvis after drainage complete and adequate course of antibiotic 2: DVT: umbrella placed . reluctant to resume anticoagulation at present given recent severe GI bleed and we do not have source. If further bleeding would strongly recommend colonoscopy. May in future resume anticoagulation but would be more conservative even if less effective. 3: metastatic rectal cancer: ct of abd and plevis and recent chest films show no disease which is good. Once he has fully recovered from current event will continue same tx that Dr. Sims prescribed 4: Thrush- no better. continue Diflucan. Antonio Tabares MD Jun 18, 2016 22:13
[2016-06-19] VITALS (7 sets, daily range): BP systolic 115–140; BP diastolic 76–90; PULSE 63–91; RESP 17–20; TEMP 96.2–98.7; O2SAT 98–100
[2016-06-19] MEDS: AMPICILLIN-SULBACTAM INJ 3 GM in SODIUM CHLORIDE 0.9% INJ 100 ML IV SCH ×4 (00:49→17:15)
[2016-06-19] MEDS: ACETAMINOPHEN/HYDROcodone 325 MG/7.5 MG TAB PO PRN ×3 (05:31→17:15)
[2016-06-19 05:45] LABS: BASOPHIL % 0.2 % (0.0-2.0); EOSINOPHIL % 0.1 % (0.0-4.0); HEMATOCRIT 35.9 % (39.0-51.0); LYMPH % 9.9 % (9.0-44.0); LYMPHOCYTE # 0.9 TH/MM3 (1.0-4.8); MEAN CELL VOLUME 84.4 FL (80.0-100.0); MEAN CORPUSCULAR HEMOGLOBIN 28.3 PG (27.0-34.0); MEAN CORPUSCULAR HGB CONC 33.5 % (32.0-36.0); NEUT % 76.8 % (16.0-70.0); PLATELET COUNT 239 TH/MM3 (150-450); RED BLOOD COUNT 4.25 MIL/MM3 (4.50-5.90); RED CELL DISTRIBUTION WIDTH 16.7 % (11.6-17.2); WHITE BLOOD COUNT 9.1 TH/MM3 (4.0-11.0)
[2016-06-19 05:50] LABS: BICARBONATE 26.9 MEQ/L (21.0-32.0); MAGNESIUM 1.8 MG/DL (1.5-2.5); POTASSIUM 3.5 MEQ/L (3.5-5.1)
[2016-06-19 05:51] LABS: HEMO FLAGS AUTO DIFF
--- NOTE | 2016-06-19 06:42 | HHI.PR ---
Subjective Remarks Pelvic abscess s/p drainage Reports less abdominal pain since drainage Objective Vital Signs Date Time Temp Pulse Resp B/P Pulse Ox O2 Delivery O2 Flow Rate FiO2 06/19/16 04:00 97.3 64 17 120/76 98 06/19/16 00:00 96.2 67 17 115/76 98 06/18/16 20:00 96.9 67 17 118/80 98 06/18/16 18:02 17 06/18/16 16:02 98.2 62 19 152/90 100 06/18/16 15:00 17 06/18/16 14:30 80 16 138/83 94 06/18/16 14:00 84 16 147/92 94 06/18/16 13:30 80 16 131/90 98 06/18/16 13:15 98.0 83 16 136/84 95 06/18/16 11:15 57 16 128/65 95 06/18/16 11:00 98.5 64 16 128/81 95 06/18/16 07:30 98.0 90 18 118/78 99 I/O 06/18/16 06/18/16 06/18/16 06/19/16 06/19/16 06/19/16 07:00 15:00 23:00 07:00 15:00 23:00 Intake Total 360 ml 390 ml Output Total 55 ml Balance 305 ml 390 ml Intake Oral 360 ml 240 ml IV Total 0 ml 150 ml Stool Total 55 ml # Voids 2 3 Result Diagram: 06/19/16 0425 06/19/16 0425 Objective Remarks Abdomen soft, mildly tender Assessment and Plan Assessment and Plan Continue conservative management Jana Walker MD Jun 19, 2016 06:42
[2016-06-19] MEDS: FLUCONAZOLE 200 MG TAB PO SCH (08:05)
[2016-06-19] MEDS: PANTOPRAZOLE SOD 20 MG DELAYED RELEASE TAB PO SCH (08:05)
[2016-06-19] MEDS: LISINOPRIL 20 MG TAB PO SCH (08:05)
[2016-06-19] MEDS: ATENOLOL 50 MG TAB PO SCH (08:05)
[2016-06-19] MEDS: GABAPENTIN 300 MG CAP PO SCH ×3 (08:05→17:15)
[2016-06-19] MEDS: SODIUM CHLORIDE 0.9% FLUSH 5 ML FLUSH FLUSH SCH ×2 (08:06→21:09)
[2016-06-19 08:26] LABS: BANDS 10 % (0-6); CORRECTED NUCLEATED RBC 1 /100 WBC (0-0); METAMYELOCYTES 4 % (0-1); MYELOCYTES 2 % (0-0); NEUTROPHIL # MANUAL DIFF 6.6 TH/MM3 (1.8-7.7); PLATELET ESTIMATE SMEAR NORMAL (NORMAL); PLATELET MORPHOLOGY NORMAL (NORMAL); POLYS (SEG NEUTROPHILS) 56 % (16-70); SCAN/DIFF FINAL DIFF MANUAL; WBC DIFF SAMPLE 100
--- NOTE | 2016-06-19 09:38 | PD.ONC.PN ---
Subjective Subjective Remarks remains weak, anorexic Objective Data Date Time Temp Pulse Resp B/P Pulse Ox O2 Delivery O2 Flow Rate FiO2 06/19/16 08:04 90 06/19/16 08:00 98.0 91 20 140/90 100 06/19/16 04:00 97.3 64 17 120/76 98 06/19/16 00:00 96.2 67 17 115/76 98 06/18/16 20:00 96.9 67 17 118/80 98 06/18/16 18:02 17 06/18/16 16:02 98.2 62 19 152/90 100 06/18/16 15:00 17 06/18/16 14:30 80 16 138/83 94 06/18/16 14:00 84 16 147/92 94 06/18/16 13:30 80 16 131/90 98 06/18/16 13:15 98.0 83 16 136/84 95 06/18/16 11:15 57 16 128/65 95 06/18/16 11:00 98.5 64 16 128/81 95 06/19/16 06/19/16 06/19/16 07:00 15:00 23:00 Intake Total 390 ml 120 ml Balance 390 ml 120 ml Result Diagram: 06/19/16 0425 06/19/16 0425 Laboratory Results Laboratory Tests Test 06/18/16 06/19/16 15:48 04:25 Potassium Level 4.2 MEQ/L 3.5 MEQ/L White Blood Count 9.1 TH/MM3 Red Blood Count 4.25 MIL/MM3 Hemoglobin 12.0 GM/DL Hematocrit 35.9 % Mean Corpuscular Volume 84.4 FL Mean Corpuscular Hemoglobin 28.3 PG Mean Corpuscular Hemoglobin 33.5 % Concent Red Cell Distribution Width 16.7 % Platelet Count 239 TH/MM3 Mean Platelet Volume 8.8 FL Neutrophils (%) (Auto) 76.8 % Lymphocytes (%) (Auto) 9.9 % Monocytes (%) (Auto) 13.0 % Eosinophils (%) (Auto) 0.1 % Basophils (%) (Auto) 0.2 % Neutrophils # (Auto) 7.0 TH/MM3 Lymphocytes # (Auto) 0.9 TH/MM3 Monocytes # (Auto) 1.2 TH/MM3 Eosinophils # (Auto) 0.0 TH/MM3 Basophils # (Auto) 0.0 TH/MM3 CBC Comment AUTO DIFF Differential Total Cells 100 Counted Neutrophils % (Manual) 56 % Band Neutrophils % 10 % Lymphocytes % 11 % Monocytes % 17 % Neutrophils # (Manual) 6.6 TH/MM3 Metamyelocytes 4 % Myelocytes 2 % Nucleated Red Blood Cells 1 /100 WBC Differential Comment FINAL DIFF MANUAL Platelet Estimate NORMAL Platelet Morphology Comment NORMAL Sodium Level 141 MEQ/L Chloride Level 105 MEQ/L Carbon Dioxide Level 26.9 MEQ/L Anion Gap 9 MEQ/L Blood Urea Nitrogen 17 MG/DL Creatinine 1.28 MG/DL Estimat Glomerular Filtration 71 ML/MIN Rate Random Glucose 115 MG/DL Calcium Level 8.4 MG/DL Magnesium Level 1.8 MG/DL Culture Results Microbiology Date/Time Procedure Status Source Growth 06/18/16 12:45 Gram Stain Received Abscess Other Pending 06/18/16 12:45 Wound Culture Received Abscess Other Pending Imaging Studies Last 24 hours Impressions Retroperitoneal Abscess Drainage 06/18/16 1139 Signed Impressions: Service Date/Time: May 12:06 - CONCLUSION: Uncomplicated CT guided drainage of a perirectal abscess.. Juno Yuen MD Administered Medications Medications (Trade) Dose Ordered Sig/John Route PRN Reason Start Time Stop Time Status Last Admin Dose Admin IV Flush (NS Flush) 2 ml BID FLUSH 06/16/16 09:00 06/19/16 08:06 Morphine Sulfate (Morphine Inj) 2 mg Q3H PRN IV PUSH pain >5 06/16/16 01:45 06/18/16 14:09 Atenolol (Tenormin) 50 mg DAILY PO 06/16/16 09:00 06/19/16 08:05 Doxazosin Mesylate (Cardura) 4 mg HS PO 06/16/16 21:00 06/18/16 20:59 Gabapentin (Neurontin) 300 mg TID PO 06/16/16 09:00 06/19/16 08:05 Fluconazole (Diflucan) 200 mg DAILY PO 06/17/16 09:00 06/19/16 08:05 Lisinopril (Prinivil) 40 mg DAILY PO 06/17/16 09:00 06/19/16 08:05 Pantoprazole Sodium 20 mg 20 mg DAILY PO 06/18/16 09:00 06/19/16 08:05 Ampicillin Sodium/ Sulbactam Sodium/ Sodium Chloride (Unasyn Inj/NS Inj) 100 ml @ 200 mls/hr Q6H IV 06/17/16 18:00 06/19/16 05:31 Acetaminophen/ Hydrocodone Bitart ([place] 7.5-325 Mg) 1 tab Q4H PRN PO PAIN SCALE 6 TO 10 06/18/16 16:30 06/19/16 05:31 Objective Remarks Objective Remarks GENERAL: chronically ill male in no acute distress SKIN: Warm and dry. HEAD: Normocephalic. EYES: No scleral icterus. No injection or drainage. NECK: Supple, trachea midline. No JVD or lymphadenopathy. Oral pharynx- thrush LYMPHATIC: No adenopathy. CARDIOVASCULAR: Regular rate and rhythm without murmurs. RESPIRATORY: Breath sounds equal bilaterally. No accessory muscle use. GASTROINTESTINAL: no tenderness in right side of abd since drainage procedure and introduction of antibiotcs EXTREMITIES: No cyanosis, or edema. MUSCULOSKELETAL: muscle wasting. NEUROLOGICAL: No obvious focal deficit. Awake, alert, and oriented x3. PSYCHIATRIC: more awake but still with drawn. Assessment/Plan Assessment 1: probable abscess in pelvis- clinically better and would continue antibiotics and await gram stain and culture. would repeat ct abd and pelvis after drainage complete and adequate course of antibiotic 2: DVT: umbrella placed . reluctant to resume anticoagulation at present given recent severe GI bleed and we do not have source. If further bleeding would strongly recommend colonoscopy. May in future resume anticoagulation but would be more conservative even if less effective. 3: metastatic rectal cancer: ct of abd and plevis and recent chest films show no disease which is good. Once he has fully recovered from current event and stronger will continue same tx that Dr. Sims prescribed 4: Met with nurse - name - Sameer from [facility] and suggested that patient on discharge go to a rehab center as at present he is severely debilitated. I will hold on chemotherapy until he has gained strength. Will ask Physical Therapy to see and once abscess gone, drain out, would discharge to rehab center and I can resume chemotherapy at later date. Antonio Tabares MD Jun 19, 2016 09:38
--- NOTE | 2016-06-19 16:14 | HHI.PR ---
Subjective Remarks Follow-up pelvic abscess. Improved abdominal pain. Drainage of 20 cc past 24 hours. Culture growing gram-negative santana. Discussed with RN Objective Vitals Vital Signs Date Time Temp Pulse Resp B/P Pulse Ox O2 Delivery O2 Flow Rate FiO2 06/19/16 16:04 97.8 63 19 132/87 100 06/19/16 11:46 98.7 67 18 122/80 100 06/19/16 10:35 16 06/19/16 08:04 90 06/19/16 08:00 98.0 91 20 140/90 100 06/19/16 04:00 97.3 64 17 120/76 98 06/19/16 00:00 96.2 67 17 115/76 98 06/18/16 20:00 96.9 67 17 118/80 98 I/O 06/18/16 06/18/16 06/18/16 06/19/16 06/19/16 06/19/16 07:00 15:00 23:00 07:00 15:00 23:00 Intake Total 360 ml 390 ml 460 ml Output Total 55 ml 220 ml Balance 305 ml 390 ml 240 ml Intake Oral 360 ml 240 ml 360 ml IV Total 0 ml 150 ml 100 ml Output Urine Total 200 ml Stool Total 55 ml Drainage Total 20 ml # Voids 2 3 # Bowel Movements 0 Result Diagram: 06/19/16 0425 06/19/16 0425 Imaging Last Impressions Retroperitoneal Abscess Drainage 06/18/16 1139 Signed Impressions: Service Date/Time: May 12:06 - CONCLUSION: Uncomplicated CT guided drainage of a perirectal abscess.. Juno Yuen MD IVC Filter Placement X-Ray 06/18/16 0000 Signed Impressions: Service Date/Time: May 10:11 - CONCLUSION: Uncomplicated inferior vena cava filter placement as above. Reinier Quijano MD Abdomen/Pelvis CT 06/17/16 0000 Signed Impressions: Service Date/Time: Friday, June 17, 2016 15:28 - CONCLUSION: Abnormal rim-enhancing fluid collection identified within the pelvis adjacent to the right aspect of the bladder and continuous with the presacral space. This appearance is consistent with abscess. The previously noted low density lesion within the left lateral segment of the liver as visualized on this exam. Ariella Meadows MD Objective Remarks GENERAL: Well-nourished, well-developed middle aged male patient in NAD. SKIN: Warm and dry. No rash. HEAD: Normocephalic. Atraumatic. NECK: Supple. Trachea midline. CARDIOVASCULAR: Regular rate and rhythm. S1, S2 noted. No murmur appreciated. RESPIRATORY: No accessory muscle use. Clear to auscultation. Breath sounds equal bilaterally. GASTROINTESTINAL: Abdomen soft, non-tender, nondistended. Normoactive bowel sounds x4. Ostomy in place in LLQ with brown stool. MUSCULOSKELETAL: No obvious deformities. Mild LLE edema. Right posterior pelvis with drain in place. NEUROLOGICAL: Awake and alert. No obvious cranial nerve deficits. Motor grossly within normal limits. Normal speech. PSYCHIATRIC: Appropriate mood and affect; insight and judgment normal. Procedures Retroperitoneal drainage of pelvic abscess A/P Problem List: (1) GI bleed ICD Code: K92.2 Status: Acute (2) Left leg DVT ICD Code: I82.402 Status: Acute (3) Colon cancer metastasized to multiple sites ICD Code: C18.9 Status: Chronic Assessment and Plan 55-year-old male with past medical history of metastatic colon cancer on chemotherapy, recently diagnosed LLE DVT, and HTN who presented with dark stools after starting on Xarelto Likely upper GI bleed: Holding Xarelto. 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 Preop EKG reviewed, stable. Acute anemia from blood loss: As above. Presented with hemoglobin 7.4, previously 11 on 06/02/16. Hemoglobin improved to 12 after transfusion with 2 units PRBCs. Monitor CBC. Stable Left lower extremity DVT: Patient's oncologist consulted. Will not tolerate full anticoagulation. IVC filter placed 06/18/16. Consider restarting anticoagulation at a later date for oncology Metastatic colon cancer: Oncology consulted, ordered abdominal CT which showed pelvic abscess, see below. Continue IV narcotics for pain control as needed for now. To resume treatment after treatment of abscess Pelvic Abscess: seen on abdominal CT. S/p CT-guided drainage of pelvic abscess on 06/18, now has drain in place. Continue Unasyn culture growing gram-negative broad. Consider ID consult. IR to manage drain Hypertension: Reasonably controlled. Continue home lisinopril and atenolol. BP fairly well controlled. Mild hypokalemia: Potassium 3.4. Replaced orally. K 2.8 today. Given po and IV KCl replacement. Mag 1.8. 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 Cannot have chemoprophylaxis with bleeding as above. IVC placed 06/18. Continue physical therapy. Case management for rehabilitation placement Problem Qualifiers (1) GI bleed: Qualified Code: K92.2 - Gastrointestinal hemorrhage, unspecified gastrointestinal hemorrhage type Joel Álvarez MD Jun 19, 2016 16:14
[2016-06-19] MEDS ORDERED: HYDR-3580 PO (16:17)
--- NOTE | 2016-06-19 16:17 | HHI.DCPOC ---
Discharge Care Plan Diagnosis: (1) Left leg DVT (2) Colon cancer Your Health Problems Are: Difficulty with ADL Exercise Tolerance Goals to Promote Your Health * To prevent worsening of your condition and complications * To maintain your health at the optimal level Directions to Meet Your Goals Take your medications as prescribed Follow your dietary instruction Follow activity as directed Keep your appointments as scheduled Take your immunizations and boosters as scheduled If your symptoms worsen call your PCP, if no PCP go to Urgent Care Center or Emergency Room Smoking is Dangerous to Your Health. Avoid second hand smoke Call the 24-hour hour crisis hotline for domestic abuse at Joel Álvarez MD Jun 19, 2016 16:17
[2016-06-19 16:31] LABS: HEMOGLOBIN A1a 0.7 %; HEMOGLOBIN Ao 83.9 %; HEMOGLOBIN LA1C 2.1 %; HEMOGLOBIN P3 4.3 %
[2016-06-19] MEDS: DOXAZOSIN MESYLATE 4 MG TAB PO SCH (21:09)
[2016-06-20] VITALS: BP 126/86; PULSE 79; RESP 20; TEMP 98.1; O2SAT 100
[2016-06-20 04:00] VITALS: BP 125/84; PULSE 90; RESP 20; TEMP 98.6; O2SAT 100
[2016-06-20] MEDS: AMPICILLIN-SULBACTAM INJ 3 GM in SODIUM CHLORIDE 0.9% INJ 100 ML IV SCH ×4 (05:55→11:17)
[2016-06-20] MEDS: ACETAMINOPHEN/HYDROcodone 325 MG/7.5 MG TAB PO PRN ×2 (05:58→11:14)
--- NOTE | 2016-06-20 07:47 | HHI.PR ---
Subjective Remarks Pelvic abscess s/p drainage more comfortable Objective Vital Signs Date Time Temp Pulse Resp B/P Pulse Ox O2 Delivery O2 Flow Rate FiO2 06/20/16 04:00 98.6 90 20 125/84 100 06/20/16 00:00 98.1 79 20 126/86 100 06/19/16 20:00 98.3 65 20 123/77 100 06/19/16 18:15 18 06/19/16 16:04 97.8 63 19 132/87 100 06/19/16 11:46 98.7 67 18 122/80 100 06/19/16 08:04 90 06/19/16 08:00 98.0 91 20 140/90 100 I/O 06/19/16 06/19/16 06/19/16 06/20/16 06/20/16 06/20/16 07:00 15:00 23:00 07:00 15:00 23:00 Intake Total 390 ml 460 ml 480 ml 440 ml Output Total 220 ml 350 ml 500 ml Balance 390 ml 240 ml 130 ml -60 ml Intake Oral 240 ml 360 ml 480 ml 240 ml IV Total 150 ml 100 ml 0 ml 200 ml Output Urine Total 200 ml 350 ml 200 ml Stool Total 300 ml Drainage Total 20 ml 0 ml 0 ml # Voids 3 4 # Bowel Movements 0 Result Diagram: 06/19/1642406/19/16424 Objective Remarks Abdomen soft, minimally tender Assessment and Plan Assessment and Plan Etiology of abscess unclear Continue drainage If discharged, followup with Dr. Juarez this week to evaluate when to remove drain Jana Walker MD Jun 20, 2016 07:46
[2016-06-20 08:00] VITALS: BP 117/79; PULSE 91; RESP 16; TEMP 97.5; O2SAT 98
[2016-06-20] MEDS: GABAPENTIN 300 MG CAP PO SCH ×2 (08:28→13:00)
[2016-06-20] MEDS: PANTOPRAZOLE SOD 20 MG DELAYED RELEASE TAB PO SCH (08:28)
[2016-06-20] MEDS: LISINOPRIL 20 MG TAB PO SCH (08:29)
[2016-06-20] MEDS: SODIUM CHLORIDE 0.9% FLUSH 5 ML FLUSH FLUSH SCH (08:29)
[2016-06-20] MEDS: ATENOLOL 50 MG TAB PO SCH (08:29)
[2016-06-20 12:00] VITALS: BP 120/82; PULSE 70; RESP 16; TEMP 97.9; O2SAT 99
--- NOTE | 2016-06-20 13:43 | HHI.PR ---
Subjective Remarks Follow-up for pelvic abscess. The patient denies any fevers or chills. He has not been out of bed today. Agreeable to SNF placement if arranged. Objective Vitals Vital Signs Date Time Temp Pulse Resp B/P Pulse Ox O2 Delivery O2 Flow Rate FiO2 06/20/16 12:00 97.9 70 16 120/82 99 06/20/16 08:00 97.5 91 16 117/79 98 06/20/16 06:58 20 06/20/16 04:00 98.6 90 20 125/84 100 06/20/16 00:00 98.1 79 20 126/86 100 06/19/16 20:00 98.3 65 20 123/77 100 06/19/16 16:04 97.8 63 19 132/87 100 I/O 06/19/16 06/19/16 06/19/16 06/20/16 06/20/16 06/20/16 07:00 15:00 23:00 07:00 15:00 23:00 Intake Total 390 ml 460 ml 480 ml 440 ml Output Total 220 ml 350 ml 500 ml Balance 390 ml 240 ml 130 ml -60 ml Intake Oral 240 ml 360 ml 480 ml 240 ml IV Total 150 ml 100 ml 0 ml 200 ml Output Urine Total 200 ml 350 ml 200 ml Stool Total 300 ml Drainage Total 20 ml 0 ml 0 ml # Voids 3 4 # Bowel Movements 0 Result Diagram: 06/19/16 0425 06/19/16 0425 Imaging Last Impressions Retroperitoneal Abscess Drainage 06/18/16 1139 Signed Impressions: Service Date/Time: May 12:06 - CONCLUSION: Uncomplicated CT guided drainage of a perirectal abscess.. Juno Yuen MD IVC Filter Placement X-Ray 06/18/16 0000 Signed Impressions: Service Date/Time: May 10:11 - CONCLUSION: Uncomplicated inferior vena cava filter placement as above. Reinier Quijano MD Abdomen/Pelvis CT 06/17/16 0000 Signed Impressions: Service Date/Time: Friday, June 17, 2016 15:28 - CONCLUSION: Abnormal rim-enhancing fluid collection identified within the pelvis adjacent to the right aspect of the bladder and continuous with the presacral space. This appearance is consistent with abscess. The previously noted low density lesion within the left lateral segment of the liver as visualized on this exam. Ariella Meadows MD Objective Remarks GENERAL: Well-developed well-nourished. In no acute distress. SKIN: Warm and dry. According drain in place. HEENT: Normocephalic. Pupils equal and round. Mucous membranes pink and moist. CARDIOVASCULAR: Regular rate and rhythm. No murmur appreciated. RESPIRATORY: No accessory muscle use. Clear to auscultation. Breath sounds equal bilaterally. GASTROINTESTINAL: Abdomen soft, non-tender, nondistended. Bowel sounds x4. Ostomy in place in LLQ with brown stool. MUSCULOSKELETAL: Slight left lower extremity swelling. No clubbing or cyanosis. NEUROLOGICAL: Awake and alert. No focal neurological deficits. Moves upper and lower extremities spontaneously. Normal speech. PSYCHIATRIC: Appropriate mood and affect; insight and judgment normal. Procedures Retroperitoneal drainage of pelvic abscess A/P Problem List: (1) GI bleed ICD Code: K92.2 Status: Acute (2) Left leg DVT ICD Code: I82.402 Status: Acute (3) Colon cancer metastasized to multiple sites ICD Code: C18.9 Status: Chronic Assessment and Plan 55-year-old male with past medical history of metastatic colon cancer on chemotherapy, recently diagnosed LLE DVT, and HTN who presented with dark stools after starting on Xarelto Likely upper GI bleed: Holding Xarelto. 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 Preop EKG reviewed, stable. Acute anemia from blood loss: As above. Presented with hemoglobin 7.4, previously 11 on 06/02/16. Hemoglobin improved to 12 after transfusion with 2 units PRBCs. Monitor CBC. Stable Left lower extremity DVT: Patient's oncologist consulted. Will not tolerate full anticoagulation. IVC filter placed 06/18/16. Consider restarting anticoagulation at a later date per oncology. Metastatic colon cancer: Oncology consulted, ordered abdominal CT which showed pelvic abscess, see below. Continue IV narcotics for pain control as needed for now. To resume treatment after treatment of abscess Pelvic Abscess: seen on abdominal CT. S/p CT-guided drainage of pelvic abscess on 06/18, now has drain in place. Continue Unasyn culture growing pansensitive Escherichia coli, transition to oral Levaquin at NE. IR and CRS to manage drain , could be followed as outpatient. Hypertension: Reasonably controlled. Continue home lisinopril and atenolol. BP fairly well controlled. Mild hypokalemia: Potassium low. Replaced orally and IV. Mag 1.8. Repeat BMP improved DVT prophylaxis: Cannot have SCDs due to recent DVT. Cannot have chemoprophylaxis with bleeding as above. IVC placed 06/18. Continue physical therapy. Case management consulted for rehabilitation placement Written by Franco Hart, acting as scribe for Dr. Álvarez on 06/20/16 at 13:43. The documentation accurately reflects the work performed [id number] by me on at 13:43. Discharge Planning Previous PT notes reviewed. Discharge planning to SNF as per Onc recommendations. Problem Qualifiers (1) GI bleed: Qualified Code: K92.2 - Gastrointestinal hemorrhage, unspecified gastrointestinal hemorrhage type Franco Hart Jun 20, 2016 13:43 Joel Álvarez MD Jun 20, 2016 13:53
[2016-06-20] MEDS ORDERED: PANT20 PO (13:51)
[2016-06-20] MEDS ORDERED: LEVA500T PO (13:51)
--- NOTE | 2016-06-20 13:54 | HHI.DS ---
Discharge Summary Admission Date Jun 15, 2016 at 20:59 Discharge Date: Jun 20, 2016 Admitting Diagnosis GI Bleed, Acute Anemia (1) GI bleed ICD Code: K92.2 Diagnosis: Principal (2) Left leg DVT ICD Code: I82.402 Diagnosis: Principal (3) Colon cancer metastasized to multiple sites ICD Code: C18.9 Diagnosis: Principal Procedures Retroperitoneal drainage of pelvic abscess Brief History - From Admission History from patient, ER physician communication, and review of medical records. Patient reported that he came to the hospital because he started seeing black color blood in his colostomy bag starting Wednesday. He also reports of severe fatigue. Denies any chest pains or shortness of breath or dizziness or focal weakness. Denies any passing out episodes. Patient reports he has colon cancer with metastasis and he is on chemotherapy at present. His last dose of chemotherapy was about a week ago. He reports that he is also on Xarelto for his left lower extremity DVT which was found about 3 days ago. He states he stopped taking Xarelto this morning. He denies any prior history of GI ulcers. As per ER report, patient was somewhat complaining of chest pain when the IV line was placed onto his left arm. In the emergency room, guaiac was done on his colostomy output and this was positive. Patient was started on pantoprazole IV drip in ER. CBC/BMP: 06/19/16 0425 06/19/16 0425 Significant Findings Laboratory Tests Test 06/18/16 06/19/16 06:55 04:25 Red Blood Count 4.29 MIL/MM3 4.25 MIL/MM3 (4.50-5.90) (4.50-5.90) Hemoglobin 11.9 GM/DL 12.0 GM/DL (13.0-17.0) (13.0-17.0) Hematocrit 35.8 % 35.9 % (39.0-51.0) (39.0-51.0) Band Neutrophils % 16 % (0-6) 10 % (0-6) Monocytes % 16 % (0-8) 17 % (0-8) Metamyelocytes 4 % (0-1) 4 % (0-1) Myelocytes 6 % (0-0) 2 % (0-0) Promyelocytes 1 % (0-0) Toxic Granulation 1+ (NORMAL) Potassium Level 2.8 MEQ/L (3.5-5.1) Blood Urea Nitrogen 19 MG/DL (7-18) Estimat Glomerular Filtration 85 ML/MIN (>89) 71 ML/MIN (>89) Rate Calcium Level 8.4 MG/DL 8.4 MG/DL (8.5-10.1) (8.5-10.1) Neutrophils (%) (Auto) 76.8 % (16.0-70.0) Monocytes (%) (Auto) 13.0 % (0.0-8.0) Lymphocytes # (Auto) 0.9 TH/MM3 (1.0-4.8) Monocytes # (Auto) 1.2 TH/MM3 (0-0.9) Nucleated Red Blood Cells 1 /100 WBC (0-0) Random Glucose 115 MG/DL (74-106) Imaging Last Impressions Retroperitoneal Abscess Drainage 06/18/16 1139 Signed Impressions: Service Date/Time: May 12:06 - CONCLUSION: Uncomplicated CT guided drainage of a perirectal abscess.. Juno Yuen MD IVC Filter Placement X-Ray 06/18/16 0000 Signed Impressions: Service Date/Time: May 10:11 - CONCLUSION: Uncomplicated inferior vena cava filter placement as above. Reinier Quijano MD Abdomen/Pelvis CT 06/17/16 0000 Signed Impressions: Service Date/Time: Friday, June 17, 2016 15:28 - CONCLUSION: Abnormal rim-enhancing fluid collection identified within the pelvis adjacent to the right aspect of the bladder and continuous with the presacral space. This appearance is consistent with abscess. The previously noted low density lesion within the left lateral segment of the liver as visualized on this exam. Ariella Meadows MD PE at Discharge GENERAL: Well-developed well-nourished. In no acute distress. SKIN: Warm and dry. According drain in place. HEENT: Normocephalic. Pupils equal and round. Mucous membranes pink and moist. CARDIOVASCULAR: Regular rate and rhythm. No murmur appreciated. RESPIRATORY: No accessory muscle use. Clear to auscultation. Breath sounds equal bilaterally. GASTROINTESTINAL: Abdomen soft, non-tender, nondistended. Bowel sounds x4. Ostomy in place in LLQ with brown stool. MUSCULOSKELETAL: Slight left lower extremity swelling. No clubbing or cyanosis. NEUROLOGICAL: Awake and alert. No focal neurological deficits. Moves upper and lower extremities spontaneously. Normal speech. PSYCHIATRIC: Appropriate mood and affect; insight and judgment normal. Hospital Course 55-year-old male with past medical history of metastatic colon cancer on chemotherapy, recently diagnosed LLE DVT, and HTN who presented with dark stools after starting on Xarelto Likely upper GI bleed: Holding Xarelto. Patient's fittings tightener consulted, EGD 06/17/16 normal, GI recommends continuing PPI 20mg po daily. Preop EKG reviewed, stable. Acute anemia from blood loss: As above. Presented with hemoglobin 7.4, previously 11 on 06/02/16. Hemoglobin improved to 12 after transfusion with 2 units PRBCs. Monitor CBC. Stable Left lower extremity DVT: Patient's oncologist consulted. Will not tolerate full anticoagulation. IVC filter placed 06/18/16. Consider restarting anticoagulation at a later date per oncology. Metastatic colon cancer: Oncology consulted, ordered abdominal CT which showed pelvic abscess, see below. Continue IV narcotics for pain control as needed for now. To resume treatment after treatment of abscess Pelvic Abscess: seen on abdominal CT. S/p CT-guided drainage of pelvic abscess on 06/18, now has drain in place. Continue Unasyn culture growing pansensitive Escherichia coli, transition to oral Levaquin at [place]. IR and CRS to manage drain , could be followed as outpatient. Hypertension: Reasonably controlled. Continue home lisinopril and atenolol. BP fairly well controlled. Mild hypokalemia: Potassium low. Replaced orally and IV. Mag 1.8. Repeat BMP improved DVT prophylaxis: Cannot have SCDs due to recent DVT. Cannot have chemoprophylaxis with bleeding as above. IVC placed 06/18. Continue physical therapy. Case management consulted for rehabilitation placement Pt Condition on Discharge: Stable Discharge Disposition: Discharge to SNF Discharge Time: > 30 minutes Discharge Instructions DIET: Follow Instructions for: As Tolerated, No Restrictions Activities you can perform: Regular-No Restrictions Activities to Avoid: Driving Follow up Referrals: Oncology - 1 Week PCP Follow-up - 2-3 Days Surgical - [address] Juarez New Medications: Hydrocodone-Acetaminophen (Hydrocodone-Acetaminophen) 7.5-325 mg Tab 1 TAB PO Q6HR PRN PAIN SCALE 6 TO 10 #12 TAB Levofloxacin (Levaquin) 500 Mg Tab 500 MG PO DAILY Infection #14 TAB Pantoprazole (Protonix) 20 Mg Tab 20 MG PO DAILY Manage Heartburn #30 TAB Continued Medications: Atenolol (Atenolol) 50 Mg Tab 50 MG PO DAILY Blood Pressure Management #30 Ref 0 TAB Diphenoxylate-Atropine (Lomotil) 2.5-0.025 Mg Tab 1-2 TAB PO Q4HR PRN DIARRHEA Ref 0 TAB Doxazosin (Doxazosin) 4 Mg Tab 4 MG PO HS Ref 0 TAB Gabapentin (Gabapentin) 300 Mg Cap 300 MG PO TID Ref 0 CAP Lisinopril (Lisinopril) 40 Mg Tab 40 MG PO DAILY Blood Pressure Management #30 Ref 0 TAB Joel Álvarez MD Jun 20, 2016 13:54
[2016-06-20] MEDS ORDERED: LEVOFLOXACIN 500 MG TAB PO SCH (14:00)
[2016-06-20 16:00] VITALS: BP 106/77; PULSE 77; RESP 16; TEMP 96.4; O2SAT 98
== END 2016-06-20 16:49 | DRG 356 ==
LOC: NEPE 16:32 → NEDA 20:59 → NEPHCDU 23:39 → N07B 06-18 14:54
PROVIDERS: ADMIT Internal Medicine; ATTEND Internal Medicine
PROC: 30233N1 Transfusion of Nonautologous Red Blood Cells into Peripheral Vein, Percutaneous Approach (ICD-10-PCS; 2016-06-15)
PROC: 0DJ08ZZ Inspection of Upper Intestinal Tract, Via Natural or Artificial Opening Endoscopic (ICD-10-PCS; 2016-06-17)
PROC: 06H03DZ Insertion of Intraluminal Device into Inferior Vena Cava, Percutaneous Approach (ICD-10-PCS; principal; 2016-06-18)
PROC: 0W9G3ZZ Drainage of Peritoneal Cavity, Percutaneous Approach (ICD-10-PCS; 2016-06-18)
DX: K92.2 Gastrointestinal hemorrhage, unspecified (principal); K65.1 Peritoneal abscess; C78.7 Secondary malignant neoplasm of liver and intrahepatic bile duct; B37.0 Candidal stomatitis; I82.412 Acute embolism and thrombosis of left femoral vein; R63.0 Anorexia; D62 Acute posthemorrhagic anemia; I82.442 Acute embolism and thrombosis of left tibial vein; I82.432 Acute embolism and thrombosis of left popliteal vein; E87.6 Hypokalemia; I10 Essential (primary) hypertension; T45.515A Adverse effect of anticoagulants, initial encounter; K21.9 Gastro-esophageal reflux disease without esophagitis; Z79.01 Long term (current) use of anticoagulants; Z85.048 Personal history of other malignant neoplasm of rectum, rectosigmoid junction, and anus; Z90.49 Acquired absence of other specified parts of digestive tract; Z93.3 Colostomy status; Z92.21 Personal history of antineoplastic chemotherapy; Z92.3 Personal history of irradiation
CPT/HCPCS: 36430; 37191; 49406; 74177; 80048; 80053; 81001; 83036; 83690; 83735; 84132; 85007; 85014; 85018; 85027; 85610; 85730; 86850; 86900; 86901; 86920; 87070; 87205; 93005; 99152; 99285; C1729; C1769; C1880; C1894; C9113; J0295; J2250; J2270; J3010; J3480; J7030; J7050; P9016; Q9963; Q9967

== ENCOUNTER 2017-02-11 13:49 | Observation (INO) | payer OTHER ==
[~2017-02-11] VITALS: Ht 175.3 cm; Wt 75.0 kg
[~2017-02-11 13:49] MED LIST changes: +AMLO10TA2 PO; +DOXA1TAB34 PO; +GABA300C5 PO; -HYDR-3516 PO; +HYDR-3580 PO; +LEVA500T PO; +LOMO2.5T PO; +PANT20 PO; +POTA10CA PO
[2017-02-11 13:51] VITALS: BP 149/78; PULSE 60; RESP 20; TEMP 98.5; O2SAT 100
[2017-02-11 14:26] LABS: AUTOMATED NEUTROPHIL # 5.4 TH/MM3 (1.8-7.7); BASOPHIL % 0.3 % (0.0-2.0); EOSINOPHIL # 0.1 TH/MM3 (0-0.4); EOSINOPHIL % 1.7 % (0.0-4.0); HEMATOCRIT 35.1 % (39.0-51.0); HEMO FLAGS DIFF FINAL; LYMPH % 15.4 % (9.0-44.0); LYMPHOCYTE # 1.3 TH/MM3 (1.0-4.8); MEAN CELL VOLUME 85.5 FL (80.0-100.0); MEAN CORPUSCULAR HEMOGLOBIN 27.3 PG (27.0-34.0); MEAN CORPUSCULAR HGB CONC 31.9 % (32.0-36.0); MONO % 16.6 % (0.0-8.0); PLATELET COUNT 225 TH/MM3 (150-450); RED CELL DISTRIBUTION WIDTH 19.8 % (11.6-17.2); WHITE BLOOD COUNT 8.2 TH/MM3 (4.0-11.0)
[2017-02-11 14:35] LABS: BACTERIA, URINE FEW /hpf; BLOOD, URINE MOD (NEG); GLUCOSE,URINE NEG (NEG); KETONE, URINE NEG (NEG); NITRITE,URINE NEG (NEG)
[2017-02-11 14:36] LABS: COMMENT (UR) CULTURE INDICATED; CULTURE IF INDICATED CULTURE INDICATED; URINE COLOR RED (YELLW/STRAW)
[2017-02-11 14:38] LABS: BICARBONATE 26.4 MEQ/L (21.0-32.0)
[2017-02-11] MEDS ORDERED: SODIUM CHLORIDE 0.9% FLUSH 10 ML FLUSH IVF PRN (15:45)
--- NOTE | 2017-02-11 15:49 | PD ---
HPI Chief Complaint: Complaint Time Seen by Provider: 14:57 Travel History International Travel<30 days: No Contact w/Intl Traveler<30days: No Traveled to known affect area: No History of Present Illness HPI Patient is a 56-year-old male presenting to the emergency for evaluation of hematuria. Patient states he woke up this morning and had normal urine, he reports urinating 3 more times after that and there was blood in his urine. Patient denies any clots. He denies any abdominal pain, back pain, fever, chills, nausea, vomiting. Patient is currently on Xarelto due to a DVT in his left leg. His past medical history is also significant for metastatic colon cancer, he is currently on chemotherapy. Patient is followed by Dr. Villalobos and his primary doctor is Dr. Stanton. Patient does have a history of GI bleed while on anticoagulants in the past. 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, LIVER CA ) Chemotherapy: Yes Diabetes: No Diminished Hearing: No Deep Vein Thrombosis: Yes (RECENT LT LEG DIAG) Endocrine: No Gastrointestinal Disorders: Yes GERD: No Hepatitis: No Hiatal Hernia: No Hypertension: Yes Immune Disorder: No Implanted Vascular Access Dvce: No Musculoskeletal: No Neurologic: No Psychiatric: No Reproductive: No Respiratory: No Radiation Therapy: Yes Thyroid Disease: No Ulcer: No Tetanus Vaccination: < 5 Years Influenza Vaccination: No Past Surgical History Abdominal Surgery: Yes (PARTIAL COLECTOMY WITH COLOSTOMY 10/2012) AICD: No Cardiac Surgery: No Ear Surgery: No Endocrine Surgery: No Eye Surgery: No Genitourinary Surgery: No Gynecologic Surgery: No Joint Replacement: No Neurologic Surgery: No Oral Surgery: No Pacemaker: No Thoracic Surgery: No Other Surgery: Yes (COLOSTOMY) Social History Alcohol Use: Yes (RARE) Tobacco Use: No Substance Use: No (PT DENIES) Allergies-Medications (Allergen,Severity, Reaction): Coded Allergies: No Known Allergies (Verified , 02/11/17) Reported Meds & Prescriptions Reported Meds & Active Scripts Active Protonix (Pantoprazole Sodium) 20 Mg Tab 20 Mg PO DAILY Lortab (Hydrocodone-Acetaminophen) 5-325 Mg Tab 1 Tab PO Q6H PRN Xarelto (Rivaroxaban) 15 Mg Tab 15 Mg PO Q12HR 21 Days Reported Doxazosin (Doxazosin Mesylate) 4 Mg Tab 4 Mg PO HS Gabapentin 300 Mg Cap 300 Mg PO TID Amlodipine (Amlodipine Besylate) 10 Mg Tab 10 Mg PO DAILY Potassium Chloride ER (Potassium Chloride) 10 Meq Cap 10 Meq PO BID Atenolol 50 Mg Tab 50 Mg PO DAILY Nifedipine ER 24 HR (Nifedipine) 60 Mg Tab 1 Cap PO DAILY Lisinopril 40 Mg Tab 40 Mg PO DAILY Review of Systems Except as stated in HPI: all other systems reviewed are Neg Genitourinary: Positive: Hematuria Physical Exam Narrative GENERAL: Well-developed, well-nourished, alert gentleman. SKIN: Warm and dry. HEAD: Atraumatic. Normocephalic. EYES: Pupils equal and round. No scleral icterus. No injection or drainage. ENT: No nasal bleeding or discharge. Mucous membranes pink and moist. NECK: Trachea midline. No JVD. CARDIOVASCULAR: Regular rate and rhythm. RESPIRATORY: No accessory muscle use. Clear to auscultation. Breath sounds equal bilaterally. GASTROINTESTINAL: Abdomen soft, non-tender, nondistended. Hepatic and splenic margins not palpable. MUSCULOSKELETAL: Extremities without clubbing, cyanosis, or edema. No obvious deformities. No CVAT bilaterally NEUROLOGICAL: Awake and alert. No obvious cranial nerve deficits. Motor grossly within normal limits. Five out of 5 muscle strength in the arms and legs. Normal speech. PSYCHIATRIC: Appropriate mood and affect; insight and judgment normal. Data Data Last Documented VS Vital Signs Date Time Temp Pulse Resp B/P (MAP) Pulse Ox O2 Delivery O2 Flow Rate FiO2 02/11/17 16:26 97.8 56 18 138/74 (95) 99 Room Air Orders Orders Urinalysis - C+S If Indicated (02/11/17 13:57) Complete Blood Count With Diff (02/11/17 13:57) Basic Metabolic Panel (Bmp) (02/11/17 13:57) Urine Culture (02/11/17 13:08) Ceftriaxone Inj (Rocephin Inj) (02/11/17 15:30) Ecg Monitoring (02/11/17 15:42) Iv Access Insert/Monitor (02/11/17 15:42) Sodium Chloride 0.9% Flush (Ns Flush) (02/11/17 15:45) Place In Observation (02/11/17 ) Vital Signs (Adult) Q4H (02/11/17 16:52) Activity Oob Ad Elisabet (02/11/17 16:52) Diet Regular Basic (02/11/17 Dinner) Sodium Chlor 0.9% 1000 Ml Inj (Ns 1000 M (02/11/17 16:52) Sodium Chloride 0.9% Flush (Ns Flush) (02/11/17 17:00) Sodium Chloride 0.9% Flush (Ns Flush) (02/11/17 21:00) Acetaminophen (Tylenol) (02/11/17 17:00) Ondansetron Inj (Zofran Inj) (02/11/17 17:00) Temazepam (Restoril) (02/11/17 17:00) Basic Metabolic Panel (Bmp) (02/12/17 06:00) Complete Blood Count With Diff (02/12/17 06:00) Naloxone Inj (Narcan Inj) (02/11/17 17:00) Docusate Sodium-Senna (Lexie-Colace) (02/11/17 21:00) Magnesium Hydroxide Liq (Milk Of Magnesi (02/11/17 17:00) Sennosides (Senokot) (02/11/17 17:00) Bisacodyl Supp (Dulcolax Supp) (02/11/17 17:00) Lactulose Liq (Lactulose Liq) (02/11/17 17:00) Admit Order (Ed Use Only) (02/11/17 16:54) Labs Laboratory Tests Test 02/11/17 13:08 02/11/17 14:12 Urine Color RED Urine Turbidity CLOUDY Urine pH 7.0 Urine Specific Loraine 1.020 Urine Protein 300 mg/dL Urine Glucose (UA) NEG mg/dL Urine Ketones NEG mg/dL Urine Occult Blood MOD Urine Nitrite NEG Urine Bilirubin NEG Urine Urobilinogen 2.0 MG/DL Urine Leukocyte Esterase NEG Urine RBC /hpf Urine WBC 127 /hpf Urine Bacteria FEW /hpf Microscopic Urinalysis Comment CULTURE INDICATED White Blood Count 8.2 TH/MM3 Red Blood Count 4.10 MIL/MM3 Hemoglobin 11.2 GM/DL Hematocrit 35.1 % Mean Corpuscular Volume 85.5 FL Mean Corpuscular Hemoglobin 27.3 PG Mean Corpuscular Hemoglobin Concent 31.9 % Red Cell Distribution Width 19.8 % Platelet Count 225 TH/MM3 Mean Platelet Volume 8.9 FL Neutrophils (%) (Auto) 66.0 % Lymphocytes (%) (Auto) 15.4 % Monocytes (%) (Auto) 16.6 % Eosinophils (%) (Auto) 1.7 % Basophils (%) (Auto) 0.3 % Neutrophils # (Auto) 5.4 TH/MM3 Lymphocytes # (Auto) 1.3 TH/MM3 Monocytes # (Auto) 1.4 TH/MM3 Eosinophils # (Auto) 0.1 TH/MM3 Basophils # (Auto) 0.0 TH/MM3 CBC Comment DIFF FINAL Differential Comment Blood Urea Nitrogen 16 MG/DL Creatinine 1.22 MG/DL Random Glucose 98 MG/DL Calcium Level 8.8 MG/DL Sodium Level 139 MEQ/L Potassium Level 4.0 MEQ/L Chloride Level 105 MEQ/L Carbon Dioxide Level 26.4 MEQ/L Anion Gap 8 MEQ/L Estimat Glomerular Filtration Rate 74 ML/MIN MDM Medical Decision Making Medical Screen Exam Complete: Yes Emergency Medical Condition: Yes Medical Record Reviewed: Yes Interpretation(s) Vital Signs Date Time Temp Pulse Resp B/P (MAP) Pulse Ox O2 Delivery O2 Flow Rate FiO2 02/11/17 16:26 97.8 56 18 138/74 (95) 99 Room Air 02/11/17 15:26 62 17 02/11/17 13:51 98.5 60 20 149/78 (101) 100 Room Air Laboratory Tests Test 02/11/17 13:08 02/11/17 14:12 Urine Color RED Urine Turbidity CLOUDY Urine pH 7.0 Urine Specific Loraine 1.020 Urine Protein 300 mg/dL Urine Glucose (UA) NEG mg/dL Urine Ketones NEG mg/dL Urine Occult Blood MOD Urine Nitrite NEG Urine Bilirubin NEG Urine Urobilinogen 2.0 MG/DL Urine Leukocyte Esterase NEG Urine RBC /hpf Urine WBC 127 /hpf Urine Bacteria FEW /hpf Microscopic Urinalysis Comment CULTURE INDICATED White Blood Count 8.2 TH/MM3 Red Blood Count 4.10 MIL/MM3 Hemoglobin 11.2 GM/DL Hematocrit 35.1 % Mean Corpuscular Volume 85.5 FL Mean Corpuscular Hemoglobin 27.3 PG Mean Corpuscular Hemoglobin Concent 31.9 % Red Cell Distribution Width 19.8 % Platelet Count 225 TH/MM3 Mean Platelet Volume 8.9 FL Neutrophils (%) (Auto) 66.0 % Lymphocytes (%) (Auto) 15.4 % Monocytes (%) (Auto) 16.6 % Eosinophils (%) (Auto) 1.7 % Basophils (%) (Auto) 0.3 % Neutrophils # (Auto) 5.4 TH/MM3 Lymphocytes # (Auto) 1.3 TH/MM3 Monocytes # (Auto) 1.4 TH/MM3 Eosinophils # (Auto) 0.1 TH/MM3 Basophils # (Auto) 0.0 TH/MM3 CBC Comment DIFF FINAL Differential Comment Blood Urea Nitrogen 16 MG/DL Creatinine 1.22 MG/DL Random Glucose 98 MG/DL Calcium Level 8.8 MG/DL Sodium Level 139 MEQ/L Potassium Level 4.0 MEQ/L Chloride Level 105 MEQ/L Carbon Dioxide Level 26.4 MEQ/L Anion Gap 8 MEQ/L Estimat Glomerular Filtration Rate 74 ML/MIN Vital Signs Date Time Temp Pulse Resp B/P (MAP) Pulse Ox O2 Delivery O2 Flow Rate FiO2 02/11/17 15:26 62 17 02/11/17 13:51 98.5 60 20 149/78 (101) 100 Room Air Differential Diagnosis Hematuria versus UTI versus anemia versus other Narrative Course Patient is a 56-year-old male with a history of metastatic colon cancer presenting with 1 day of hematuria. Patient is on Xarelto due to a DVT in his left leg. Patient's vital signs are stable. Patient was protocoled in triage. CBC shows no acute abnormality, chemistry with no acute findings, urinalysis with moderate occult blood, innumerable red blood cells, 127 white blood cells. Discussed findings with my attending physician who feels it would be best to bring patient in under observation due to history of bleeding, current anticoagulation. [facility] paged for admission. Discussed with Dr. Erwin who accepted admission. Admitting orders placed. Patient is agreeable. Diagnosis Primary Impression: Hematuria Qualified Codes: R31.9 - Hematuria, unspecified Additional Impression: On anticoagulant therapy Admitting Information Admitting Physician Requests: Observation Condition: Stable Elsie Banerjee Feb 11, 2017 15:49
[2017-02-11 16:26] VITALS: BP 138/74; PULSE 56; RESP 18; TEMP 97.8; O2SAT 99
[2017-02-11] MEDS ORDERED: TEMAZEPAM 15 MG CAP PO PRN (17:00)
[2017-02-11] MEDS ORDERED: NALOXONE HCL 0.4 MG/ML AMP IV PUSH PRN (17:00)
[2017-02-11] MEDS ORDERED: ACETAMINOPHEN 325 MG TAB PO PRN (17:00)
[2017-02-11] MEDS ORDERED: SODIUM CHLORIDE 0.9% FLUSH 10 ML FLUSH IV FLUSH PRN (17:00)
[2017-02-11] MEDS ORDERED: SENNOSIDES 8.6 MG TAB PO PRN (17:00)
[2017-02-11] MEDS ORDERED: BISACODYL 10 MG SUPP RECTAL PRN (17:00)
[2017-02-11] MEDS ORDERED: MAGNESIUM HYDROXIDE SUSP 30 ML CUP PO PRN (17:00)
[2017-02-11] MEDS ORDERED: ONDANSETRON HCL 4 MG/2 ML VIAL IVP PRN (17:00)
[2017-02-11] MEDS ORDERED: LACTULOSE SYRUP 20 GM/30 ML CUP PO PRN (17:00)
[2017-02-11 18:10] VITALS: BP 123/85; TEMP 97.8
[2017-02-11] MEDS: SODIUM CHLOR 0.9% 1000 ML INJ 1,000 ML IV SCH (20:08)
[2017-02-11] MEDS: DOCUSATE SODIUM 50 MG/SENNA 8.6 MG TAB PO SCH (20:09)
[2017-02-11] MEDS: SODIUM CHLORIDE 0.9% FLUSH 10 ML FLUSH IV FLUSH SCH (20:09)
[2017-02-11 20:49] VITALS: BP 147/80; PULSE 50; RESP 18; TEMP 98; O2SAT 99
[2017-02-12] VITALS: BP 139/77; PULSE 53; RESP 18; TEMP 97.9; O2SAT 100
[2017-02-12] MEDS: SODIUM CHLOR 0.9% 1000 ML INJ 1,000 ML IV SCH (03:54)
[2017-02-12 04:12] VITALS: BP 118/74; PULSE 51; RESP 18; TEMP 98.2; O2SAT 100
--- NOTE | 2017-02-12 05:40 | HHI.HP ---
HPI Service [facility] Primary Care Physician Unknown Admission Diagnosis UTI/HEMATURIA ON ANTICOAGULATION Diagnoses: Chief Complaint: Blood in the urine. Travel History International Travel<30 Days: No Contact w/Intl Traveler <30 Da: No Traveled to Known Affected Are: No History of Present Illness Late entry for 02/11/2017. Patient was seen around 6:30PM on 02/11/2017. However, due to EMR problems, H&P was not entered. Ms. Palomares is a 56 year old male with a history of metastatic rectal cancer ( 2002) mets to liver and recent diagnosis of DVT, currently on Xarelto who presents to the ED today due to hematuria that started today. He had normal urination in the morning. However, subsequently, he had gross, painless hematuria. He denies any dysuria, fever, chills. He has been on Xarelto for about 4-5 months for left lower ext DVT. He denies any chest pain, cough, abdominal pain. No changes in bowel habits. Review of Systems Except as stated in HPI: all other systems reviewed are Neg Past Family Social History Past Medical History Metastatic rectal cancer. Hypertension Left lower extremity DVT diagnosed May 2016. Pituitary adenoma Past Surgical History IVC filter - 05/2016 Bladder biopsy in 2012 Exploratory laparotomy with proctosigmoidectomy, Osborne pouch and end colostomy in 2012 Colostomy in 2012 Colonoscopy with rectal biopsy in 2012 EGD with stomach biopsy in 2012 Reported Medications Protonix (Pantoprazole Sodium) 20 Mg Tab 20 Mg PO DAILY Lortab (Hydrocodone-Acetaminophen) 5-325 Mg Tab 1 Tab PO Q6H PRN Xarelto (Rivaroxaban) 15 Mg Tab 15 Mg PO Q12HR 21 Days Reported Doxazosin (Doxazosin Mesylate) 4 Mg Tab 4 Mg PO HS Gabapentin 300 Mg Cap 300 Mg PO TID Amlodipine (Amlodipine Besylate) 10 Mg Tab 10 Mg PO DAILY Potassium Chloride ER (Potassium Chloride) 10 Meq Cap 10 Meq PO BID Atenolol 50 Mg Tab 50 Mg PO DAILY Nifedipine ER 24 HR (Nifedipine) 60 Mg Tab 1 Cap PO DAILY Lisinopril 40 Mg Tab 40 Mg PO DAILY Allergies: Coded Allergies: No Known Allergies (Verified , 02/11/17) Family History Mother had breast cancer, sister with leukemia Social History Patient denies using tobacco, alcohol or illicit drugs. Physical Exam Vital Signs Vital Signs Date Time Temp Pulse Resp B/P (MAP) Pulse Ox O2 Delivery O2 Flow Rate FiO2 02/12/17 04:12 98.2 51 18 118/74 (89) 100 02/12/17 00:00 97.9 53 18 139/77 (97) 100 02/11/17 20:49 98.0 50 18 147/80 (102) 99 02/11/17 18:10 97.8 58 16 123/85 (98) 98 02/11/17 16:26 97.8 56 18 138/74 (95) 99 Room Air 02/11/17 15:26 62 17 02/11/17 13:51 98.5 60 20 149/78 (101) 100 Room Air Physical Exam GENERAL: This is a well-nourished, well-developed patient, in no apparent distress. SKIN: No rashes, ecchymoses or lesions. Warm and dry. HEAD: Atraumatic. Normocephalic. No temporal or scalp tenderness. EYES: Pupils equal round and reactive. No injection or drainage. ENT: Nose without bleeding, purulent drainage or septal hematoma. Airway patent. NECK: Trachea midline. No lymphadenopathy. Supple, nontender, no meningeal signs. CARDIOVASCULAR: Regular rate and rhythm without murmurs, gallops, or rubs. No JVD. RESPIRATORY: Clear to auscultation. Breath sounds equal bilaterally. No wheezes , rales, or rhonchi. GASTROINTESTINAL: Abdomen soft, non-tender, nondistended. No guarding. MUSCULOSKELETAL: Extremities without clubbing, cyanosis, or edema. NEUROLOGICAL: Awake and alert. Cranial nerves II through XII intact. No focal neurological deficits. Normal speech. Laboratory Laboratory Tests Test 02/11/17 13:08 02/11/17 14:12 Urine Color RED Urine Turbidity CLOUDY Urine pH 7.0 Urine Specific [place] 1.020 Urine Protein 300 Urine Glucose (UA) NEG Urine Ketones NEG Urine Occult Blood MOD Urine Nitrite NEG Urine Bilirubin NEG Urine Urobilinogen 2.0 Urine Leukocyte Esterase NEG Urine RBC Urine WBC 127 Urine Bacteria FEW Microscopic Urinalysis Comment CULTURE INDICATED White Blood Count 8.2 Red Blood Count 4.10 Hemoglobin 11.2 Hematocrit 35.1 Mean Corpuscular Volume 85.5 Mean Corpuscular Hemoglobin 27.3 Mean Corpuscular Hemoglobin Concent 31.9 Red Cell Distribution Width 19.8 Platelet Count 225 Mean Platelet Volume 8.9 Neutrophils (%) (Auto) 66.0 Lymphocytes (%) (Auto) 15.4 Monocytes (%) (Auto) 16.6 Eosinophils (%) (Auto) 1.7 Basophils (%) (Auto) 0.3 Neutrophils # (Auto) 5.4 Lymphocytes # (Auto) 1.3 Monocytes # (Auto) 1.4 Eosinophils # (Auto) 0.1 Basophils # (Auto) 0.0 CBC Comment DIFF FINAL Differential Comment Blood Urea Nitrogen 16 Creatinine 1.22 Random Glucose 98 Calcium Level 8.8 Sodium Level 139 Potassium Level 4.0 Chloride Level 105 Carbon Dioxide Level 26.4 Anion Gap 8 Estimat Glomerular Filtration Rate 74 Date/Time Source Procedure Growth Status 02/11/17 13:08 Urine Clean Catch Urine Culture Pending Received Result Diagram: 02/11/17 1412 02/11/17 1412 Caprini VTE Risk Assessment Caprini VTE Risk Assessment: Mod/High Risk (score >= 2) Caprini Risk Assessment Model Point Value = 1 Point Value = 2 Point Value = 3 Point Value = 5 Age 41-60 Minor surgery BMI > 25 kg/m2 Swollen legs Varicose veins or History of unexplained or recurrent spontaneous Oral contraceptives or hormone replacement Sepsis (< 1 month) Serious lung disease, including pneumonia (< 1 month) Abnormal pulmonary function Acute myocardial infarction Congestive heart failure (< 1 month) History of inflammatory bowel disease Medical patient at bed rest Age 61-74 Arthroscopic surgery Major open surgery (> 45 min) Laparoscopic surgery (> 45 min) Malignancy Confined to bed (> 72 hours) Immobilizing plaster cast Central venous access Age >= 75 History of VTE Family history of VTE Factor V Leiden Prothrombin [id number] Lupus anticoagulant Anticardiolipin antibodies Elevated serum homocysteine Heparin-induced thrombocytopenia Other congenital or acquired thrombophilia Stroke (< 1 month) Elective arthroplasty Hip, pelvis, or leg fracture Acute spinal cord injury (< 1 month) Prophylaxis Regimen Total Risk Factor Score Risk Level Prophylaxis Regimen 0-1 Low Early ambulation 2 Moderate Order ONE of the following: *Sequential Compression Device (SCD) *Heparin 5000 units SQ BID 3-4 Higher Order ONE of the following medications: *Heparin 5000 units SQ TID *Enoxaparin/Lovenox 40 mg SQ daily (WT < 150 kg, CrCl > 30 mL/min) *Enoxaparin/Lovenox 30 mg SQ daily (WT < 150 kg, CrCl > 10-29 mL/min) *Enoxaparin/Lovenox 30 mg SQ BID (WT < 150 kg, CrCl > 30 mL/min) AND/OR *Sequential Compression Device (SCD) 5 or more Highest Order ONE of the following medications: *Heparin 5000 units SQ TID (Preferred with Epidurals) *Enoxaparin/Lovenox 40 mg SQ daily (WT < 150 kg, CrCl > 30 mL/min) *Enoxaparin/Lovenox 30 mg SQ daily (WT < 150 kg, CrCl > 10-29 mL/min) *Enoxaparin/Lovenox 30 mg SQ BID (WT < 150 kg, CrCl > 30 mL/min) AND *Sequential Compression Device (SCD) Assessment and Plan Problem List: (1) Hematuria ICD Code: R31.9 - Hematuria Status: Acute (2) Rectal cancer ICD Code: C20 - Malignant neoplasm of rectum Status: Acute (3) Left leg DVT ICD Code: I82.402 - Acute embolism and thrombosis of unspecified deep veins of left lower extremity Status: Acute (4) Hypertension ICD Code: I10 - Hypertension Status: Chronic Assessment and Plan Mr. Palomares is a 56-year-old male with a history of metastatic rectal cancer who presents to the emergency department on 02/11/2017 due to painless gross hematuria that started on the day of admission. Patient was diagnosed with rectal cancer in 2012 and underwent chemoradiation. He also has a history of left lower extremity DVT diagnosed in May 2016 and has been on Xarelto. - Painless hematuria - Will discontinue Xarelto. - Continues normal saline 100 cc per hour. - We'll consult urology, patient may need a cystoscopy. - In 2013, bladder wall thickening was suspected. - Metastatic rectal cancer - Mets to liver. Current clinical symptoms of hematuria raise suspicion for bladder involvements. - Will consult patient's primary oncologist, Dr. Villalobos. - Hypertension - Continue Atenolol 50mg Qday, nifedipine 60 mg daily, lisinopril 40 mg daily. - GERD - continue Protonix 20 mg daily. Full code. Ambulation. Problem Qualifiers (1) Hematuria: Qualified Codes: R31.9 - Hematuria, unspecified Jeronimo Erwin DO Feb 12, 2017 5:40 am
[2017-02-12 07:54] VITALS: BP 150/84; PULSE 51; RESP 18; TEMP 98.2; O2SAT 98
[2017-02-12] MEDS: DOCUSATE SODIUM 50 MG/SENNA 8.6 MG TAB PO SCH (09:00)
[2017-02-12 09:16] LABS: AUTOMATED NEUTROPHIL # 4.9 TH/MM3 (1.8-7.7); BASOPHIL % 0.5 % (0.0-2.0); EOSINOPHIL # 0.1 TH/MM3 (0-0.4); EOSINOPHIL % 0.9 % (0.0-4.0); HEMATOCRIT 35.4 % (39.0-51.0); HEMO FLAGS DIFF FINAL; LYMPHOCYTE # 1.2 TH/MM3 (1.0-4.8); MEAN CELL VOLUME 84.9 FL (80.0-100.0); MEAN CORPUSCULAR HEMOGLOBIN 27.4 PG (27.0-34.0); MEAN CORPUSCULAR HGB CONC 32.2 % (32.0-36.0); MONO % 16.7 % (0.0-8.0); NEUT % 65.9 % (16.0-70.0); PLATELET COUNT 213 TH/MM3 (150-450); RED BLOOD COUNT 4.17 MIL/MM3 (4.50-5.90); RED CELL DISTRIBUTION WIDTH 19.7 % (11.6-17.2); WHITE BLOOD COUNT 7.4 TH/MM3 (4.0-11.0)
[2017-02-12] MEDS: GABAPENTIN 300 MG CAP PO SCH ×2 (09:36→14:35)
[2017-02-12 09:37] LABS: BICARBONATE 25.3 MEQ/L (21.0-32.0); POTASSIUM 4.2 MEQ/L (3.5-5.1)
[2017-02-12] MEDS: SODIUM CHLORIDE 0.9% FLUSH 10 ML FLUSH IV FLUSH SCH (09:37)
[2017-02-12] MEDS ORDERED: ACETAMINOPHEN/HYDROcodone 325 MG/10 MG TAB PO PRN (10:00)
[2017-02-12] MEDS ORDERED: ATENOLOL 50 MG TAB PO SCH (10:00)
[2017-02-12] MEDS ORDERED: LISINOPRIL 20 MG TAB PO SCH (10:00)
[2017-02-12] MEDS ORDERED: PANTOPRAZOLE SOD 20 MG DELAYED RELEASE TAB PO SCH (10:00)
[2017-02-12] MEDS ORDERED: NIFEdipine 60 MG SUSTAINED RELEASE TAB PO SCH (10:00)
[2017-02-12 11:47] VITALS: BP 139/80; PULSE 54; RESP 18; TEMP 98; O2SAT 98
--- NOTE | 2017-02-12 14:12 | HHI.PR ---
Subjective Remarks Follow up for hematuria. Patient is doing well. No further hematuria. No fever, chills. Objective Vitals Vital Signs Date Time Temp Pulse Resp B/P (MAP) Pulse Ox O2 Delivery O2 Flow Rate FiO2 02/12/17 11:47 98.0 54 18 139/80 (99) 98 02/12/17 07:54 98.2 51 18 150/84 (106) 98 02/12/17 04:12 98.2 51 18 118/74 (89) 100 02/12/17 00:00 97.9 53 18 139/77 (97) 100 02/11/17 20:49 98.0 50 18 147/80 (102) 99 02/11/17 18:10 97.8 58 16 123/85 (98) 98 02/11/17 16:26 97.8 56 18 138/74 (95) 99 Room Air 02/11/17 15:26 62 17 I/O 02/11/17 02/11/17 02/11/17 02/12/17 02/12/17 02/12/17 07:00 15:00 23:00 07:00 15:00 23:00 Intake Total 240 ml Balance 240 ml Intake Oral 240 ml # Voids 1 Result Diagram: 02/12/17 0829 02/12/17 0829 Objective Remarks GENERAL: AOX3, NAD SKIN: Warm and dry. HEAD: Normocephalic. EYES: No scleral icterus. No injection or drainage. NECK: Supple, trachea midline. No JVD or lymphadenopathy. CARDIOVASCULAR: Regular rate and rhythm without murmurs, gallops, or rubs. RESPIRATORY: Breath sounds equal bilaterally. No accessory muscle use. GASTROINTESTINAL: Abdomen soft, non-tender, nondistended. MUSCULOSKELETAL: No cyanosis, or edema. BACK: Nontender without obvious deformity. No CVA tenderness. Procedures None. A/P Problem List: (1) Hematuria ICD Code: R31.9 - Hematuria Status: Acute (2) Rectal cancer ICD Code: C20 - Malignant neoplasm of rectum Status: Acute (3) Left leg DVT ICD Code: I82.402 - Acute embolism and thrombosis of unspecified deep veins of left lower extremity Status: Acute (4) Hypertension ICD Code: I10 - Hypertension Status: Chronic Assessment and Plan Mr. Palomares is a 56-year-old male with a history of metastatic rectal cancer who presents to the emergency department on 02/11/2017 due to painless gross hematuria that started on the day of admission. Patient was diagnosed with rectal cancer in 2012 and underwent chemoradiation. He also has a history of left lower extremity DVT diagnosed in May 2016 and has been on Xarelto. - Painless hematuria - Will discontinue Xarelto. - Continues normal saline 100 cc per hour while in the hospital. - Urology evaluated patient. Discussed with Urology. US ordered. After US, patient can be discharged with outpatient follow up. - Metastatic rectal cancer - Mets to liver. Current clinical symptoms of hematuria raise suspicion for bladder involvements. - Pt has an appointment with Dr. Villalobos next week (Wed). - Hypertension - Continue Atenolol 50mg Qday, nifedipine 60 mg daily, lisinopril 40 mg daily. - GERD - continue Protonix 20 mg daily. Full code. Ambulation. Discharge patient to home Condition on discharge: Improved Regular Diet as tolerated Ad Elisabet activity Rx written: [place] 5/325mg Q6hrs PRN #20. Follow-up with primary care physician within one week, Oncology in 3-5 days, and Urology in one week. Problem Qualifiers (1) Hematuria: Qualified Codes: R31.9 - Hematuria, unspecified Jeronimo Erwin DO Feb 12, 2017 14:12
[2017-02-12] MEDS ORDERED: HYDR-3533 PO (14:14)
--- NOTE | 2017-02-12 14:44 | RADRPT ---
EXAM DATE/TIME: 02/12/2017 13:58 [facility] COMPARISON: CT ABDOMEN & PELVIS W CONTRAST, June 17, 2016, 15:28. EXTERNAL COMPARISON : [facility], CT ABDOMEN & PELVIS W CONTRAST, November 30, 2016 INDICATIONS : Hematuria. MEDICAL HISTORY : Hypertension. Deep venous thrombosis. Liver cancer. Colorectal cancer. UTI. Depression. Anticoagula nt therapy, Xarelto. SURGICAL HISTORY : Partial colectomy with colostomy. Chemotherapy. Radiation thearpy. Blood transfusions. ENCOUNTER: Initial ACUITY: 1 day PAIN SCORE: 0/10 LOCATION: Bilateral flank MEASUREMENTS: RIGHT KIDNEY: 10.1 x 4.9 x 5.6 cm LEFT KIDNEY: 11.0 x 5.4 x 6.6 cm FINDINGS: RIGHT KIDNEY: There is mild dilatation of the right collecting system. There is no stone identified. LEFT KIDNEY: Is mild dilatation of the left collecting system stone. BLADDER: There is no clot in the bladder. Trace ascites. CONCLUSION: Mild dilatation of both collecting systems. There is no free clot in the bladder or renal stone. Wing Jauregui MD FACR on February 12, 2017 at 14:41 Board Certified Radiologist. This report was verified electronically.
[2017-02-12] MEDS ORDERED: DOXAZOSIN MESYLATE 4 MG TAB PO SCH (21:00)
--- NOTE | 2017-02-16 16:44 | MB ---
cc: AVEL OROZCO DATE OF CONSULTATION 02/12/17 HISTORY OF PRESENT ILLNESS Mr. Palomares is a pleasant 56-year-old male who presented with a two day history of gross hematuria. He states that he noted an episode of gross hematuria one year prior. He is currently on Xarelto for a DVT and has a diagnosis of metastatic rectal cancer for which he underwent surgery in the past. He states he also has some frequent urination at night but denies any urinary tract infections. He denies any history of smoking. PAST MEDICAL HISTORY 1. Metastatic rectal cancer, 2. Hypertension. 3. Deep venous thrombosis diagnosed in May of 2016 4. Pituitary adenoma PAST SURGICAL HISTORY 1. IVC filter 2. Bladder biopsy in 2012 3. Exploratory laparotomy with end colostomy 4. Esophagogastroduodenoscopy and stomach biopsy MEDICATIONS For medications please refer to the chart. ALLERGIES NO KNOWN DRUG ALLERGIES. FAMILY HISTORY Denies any family history of prostate cancer. Mother with breast cancer. SOCIAL HISTORY Denies any smoking in the past, alcohol or drug usage. REVIEW OF SYSTEMS Denies chest pain, shortness of breath. Denies abdominal pain. Does note nocturia with some urinary frequency at times. Notes onset of gross hematuria. Denies gait disturbances, bleeding disorders. Does note a left DVT. Denies skin lesions. Denies neurologic problems. Denies headaches. The remaining review of systems were reviewed and are negative. PHYSICAL EXAMINATION VITAL SIGNS: Present vitals temperature is 98, heart rate 54, respiratory rate 18, 139/86 blood pressure. GENERAL: A well-developed, well-nourished 56-year-old male in no acute distress. HEENT: Normocephalic, atraumatic. Pupils equal, round, reactive to light. Extraocular movements are intact. NECK: Supple. HEART: Regular rate and rhythm. LUNGS: Clear. ABDOMEN: Soft, nontender, distended EXTREMITIES: No cyanosis, clubbing or edema. GENITOURINARY:: Normal phallus. Testes are descended. Neuro: CNII-XII intact Skin: no lesions Psych: generalized mood LABORATORY DATA White count 7.4, hemoglobin 11.4, hematocrit 35.4, platelet count of 213. Sodium 141, potassium 4.2, chloride 109, CO2 25.3, BUN 13, creatinine 0.86, glucose of 84. Urinalysis shows 127 red cells and numerous white cells. Urine culture is currently pending. ASSESSMENT AND PLAN A 56-year-old male with history of gross hematuria on anticoagulation medication for a DVT with history of metastatic rectal cancer, 1. Recommend renal bladder sono for evaluation. 2. Check results of urine culture. Urine has presently cleared according to the patient. We will continue to follow with you and he will need an outpatient cystoscopy in the office. Thank you very much for the consult and allowing me to participate in the care of this patient. Avel HE /12:59 PM /4:59 PM POORNIMA
== END 2017-02-12 17:27 | disposition home or self-care (01) ==
LOC: NEPE 13:49 → NEDA 16:56 → NEPFCDU 18:13
PROVIDERS: ADMIT Hospitalist; ATTEND Hospitalist
DX: R31.0 Gross hematuria (principal); C20 Malignant neoplasm of rectum; C78.7 Secondary malignant neoplasm of liver and intrahepatic bile duct; I82.5Z2 Chronic embolism and thrombosis of unspecified deep veins of left distal lower extremity; I10 Essential (primary) hypertension; D35.2 Benign neoplasm of pituitary gland; K21.9 Gastro-esophageal reflux disease without esophagitis; Z93.3 Colostomy status; Z79.01 Long term (current) use of anticoagulants; Z92.21 Personal history of antineoplastic chemotherapy
CPT/HCPCS: 76775; 80048; 81001; 85025; 87086; 96360; 96361; 96372; 97161; 99285; G0378; G8987; G8988; J0696; J7030

== ENCOUNTER 2017-03-31 08:55 | Inpatient (IN) | payer OTHER, MEDICARE ==
[~2017-03-31] VITALS: Ht 175.3 cm; Wt 75.2 kg
[~2017-03-31 08:55] MED LIST changes: -AMLO10TA2 PO; -HYDR-3580 PO; -LEVA500T PO; -LOMO2.5T PO; -POTA10CA PO; -XARE15TA PO
[2017-03-31 08:57] VITALS: BP 161/98; PULSE 107; RESP 20; TEMP 98.7; O2SAT 100
[2017-03-31] MEDS ORDERED: POTA10TA2 PO (09:40)
[2017-03-31] MEDS ORDERED: SODIUM CHLOR 0.9% 1000 ML INJ 1,000 ML IV SCH (10:12)
[2017-03-31] MEDS ORDERED: ONDANSETRON HCL 4 MG/2 ML VIAL IVP ONE (10:15)
[2017-03-31] MEDS ORDERED: SODIUM CHLORIDE 0.9% FLUSH 10 ML FLUSH IV FLUSH PRN ×2 (10:15→19:30)
[2017-03-31] MEDS ORDERED: MORPHINE SULFATE 4 MG/ML INJ IV PUSH ONE (10:15)
[2017-03-31 10:49] LABS: AUTOMATED NEUTROPHIL # 4.5 TH/MM3 (1.8-7.7); BASOPHIL % 0.4 % (0.0-2.0); EOSINOPHIL % 0.5 % (0.0-4.0); HEMATOCRIT 32.9 % (39.0-51.0); HEMOGLOBIN 10.6 GM/DL (13.0-17.0); LYMPH % 17.3 % (9.0-44.0); LYMPHOCYTE # 1.2 TH/MM3 (1.0-4.8); MEAN CELL VOLUME 81.6 FL (80.0-100.0); MEAN CORPUSCULAR HEMOGLOBIN 26.2 PG (27.0-34.0); MEAN CORPUSCULAR HGB CONC 32.1 % (32.0-36.0); MEAN PLATELET VOLUME 8.2 FL (7.0-11.0); MONO % 18.6 % (0.0-8.0); MONOCYTE # 1.3 TH/MM3 (0-0.9); NEUT % 63.2 % (16.0-70.0); PLATELET COUNT 228 TH/MM3 (150-450); RED BLOOD COUNT 4.04 MIL/MM3 (4.50-5.90); RED CELL DISTRIBUTION WIDTH 21.5 % (11.6-17.2); WHITE BLOOD COUNT 7.2 TH/MM3 (4.0-11.0)
[2017-03-31 11:09] LABS: ALKALINE PHOSPHATASE 162 U/L (45-117); TOTAL BILIRUBIN ADULT 0.7 MG/DL (0.2-1.0); TOTAL PROTEIN 8.5 GM/DL (6.4-8.2)
[2017-03-31 11:23] LABS: ALT (GPT) 22 U/L (12-78); AST (GOT) 24 U/L (15-37); BICARBONATE 24.1 MEQ/L (21.0-32.0); BLOOD UREA NITROGEN 13 MG/DL (7-18); CALCIUM 9.1 MG/DL (8.5-10.1); CHLORIDE 103 MEQ/L (98-107); GLOMERULAR FILTRATION RATE 84 ML/MIN (>89); GLUCOSE,RANDOM 95 MG/DL (74-106); LIPASE 164 U/L (73-393); SODIUM (NA) 136 MEQ/L (136-145)
[2017-03-31 11:41] LABS: BILIRUBIN, URINE NEG (NEG); BLOOD, URINE TRACE (NEG); GLUCOSE,URINE NEG (NEG); KETONE, URINE NEG (NEG); NITRITE,URINE NEG (NEG); PH, URINE 7.5 (5.0-8.5); URINE COLOR YELLOW (YELLW/STRAW); URINE LEUKOCYTE ESTERASE NEG (NEG)
--- NOTE | 2017-03-31 12:26 | PD ---
HPI Chief Complaint: Abdominal Pain Time Seen by Provider: 09:49 Travel History International Travel<30 days: No Contact w/Intl Traveler<30days: No Traveled to known affect area: No History of Present Illness HPI Is a 56-year-old man with a history of metastatic rectal CA presents emergency department with 3 days of abdominal pain. Patient as rectal CA that was treated with colectomy and end colostomy to years ago. He normally is a little bit of right lower quadrant abdominal pain. Over the past 2 days she's had severe diffuse abdominal pain with cramping and bloating. He's had slight loosening any output from his ostomy. No nausea or vomiting. Chills but no fever. No blood in the ostomy output. He's not had pain similar to this in the past. He does still get chemotherapy with Avastin every several weeks, he is due today. He also has had a left lower extremity DVT in May of this year and is on Xarelto. History Past Medical History Narrative Medical Metastatic rectal CA, status post proctosigmoidectomy with Morison's pouch and colostomy, follows with Dr. Borrero, on chemotherapy History of both lower extremity DVT May 2016, on Xarelto Hypertension Pituitary adenoma Social History Alcohol Use: Yes (RARE) Tobacco Use: No Allergies-Medications (Allergen,Severity, Reaction): Coded Allergies: No Known Allergies (Verified Adverse Reaction, Unknown, 03/31/17) Reported Meds & Prescriptions Reported Meds & Active Scripts Active Lortab (Hydrocodone-Acetaminophen) 5-325 Mg Tab 1 Tab PO Q6H PRN Reported Potassium Chloride ER (Potassium Chloride) 10 Meq Tab 10 Meq PO BID Doxazosin (Doxazosin Mesylate) 4 Mg Tab 4 Mg PO HS Gabapentin 300 Mg Cap 300 Mg PO TID Atenolol 50 Mg Tab 50 Mg PO DAILY Nifedipine ER 24 HR (Nifedipine) 60 Mg Tab 1 Cap PO DAILY Lisinopril 40 Mg Tab 40 Mg PO DAILY Review of Systems Except as stated in HPI: all other systems reviewed are Neg Physical Exam Narrative GENERAL: 56-year-old man, no acute distress. SKIN: Focused skin assessment warm/dry. HEAD: Atraumatic. Normocephalic. EYES: Pupils equal and round. No scleral icterus. No injection or drainage. ENT: No nasal bleeding or discharge. Mucous membranes pink and moist. NECK: Trachea midline. No JVD. CARDIOVASCULAR: Regular rate and rhythm. No murmur appreciated. RESPIRATORY: No accessory muscle use. Clear to auscultation. Breath sounds equal bilaterally. GASTROINTESTINAL: Abdomen is flat and soft. Ostomy in the left lower quadrant with liquid light brown stools. MUSCULOSKELETAL: No obvious deformities. No clubbing. No cyanosis. No edema. NEUROLOGICAL: Awake and alert. No obvious cranial nerve deficits. Motor grossly within normal limits. Normal speech. PSYCHIATRIC: Appropriate mood and affect; insight and judgment normal. Data Data Last Documented VS Vital Signs Date Time Temp Pulse Resp B/P (MAP) Pulse Ox O2 Delivery O2 Flow Rate FiO2 03/31/17 08:57 98.7 107 20 161/98 (119) 100 Room Air Orders Orders Complete Blood Count With Diff (03/31/17 10:12) Comprehensive Metabolic Panel (03/31/17 10:12) Lipase (03/31/17 10:12) Urinalysis - C+S If Indicated (03/31/17 10:12) Ct Abd/Pel W Iv Contrast(Rout) (03/31/17 10:12) Iv Access Insert/Monitor (03/31/17 10:12) Morphine Inj (Morphine Inj) (03/31/17 10:15) Ondansetron Inj (Zofran Inj) (03/31/17 10:15) Sodium Chlor 0.9% 1000 Ml Inj (Ns 1000 M (03/31/17 10:12) Sodium Chloride 0.9% Flush (Ns Flush) (03/31/17 10:15) Iohexol 350 Inj (Omnipaque 350 Inj) (03/31/17 12:40) Labs Laboratory Tests Test 03/31/17 10:30 03/31/17 11:00 White Blood Count 7.2 TH/MM3 Red Blood Count 4.04 MIL/MM3 Hemoglobin 10.6 GM/DL Hematocrit 32.9 % Mean Corpuscular Volume 81.6 FL Mean Corpuscular Hemoglobin 26.2 PG Mean Corpuscular Hemoglobin Concent 32.1 % Red Cell Distribution Width 21.5 % Platelet Count 228 TH/MM3 Mean Platelet Volume 8.2 FL Neutrophils (%) (Auto) 63.2 % Lymphocytes (%) (Auto) 17.3 % Monocytes (%) (Auto) 18.6 % Eosinophils (%) (Auto) 0.5 % Basophils (%) (Auto) 0.4 % Neutrophils # (Auto) 4.5 TH/MM3 Lymphocytes # (Auto) 1.2 TH/MM3 Monocytes # (Auto) 1.3 TH/MM3 Eosinophils # (Auto) 0.0 TH/MM3 Basophils # (Auto) 0.0 TH/MM3 CBC Comment DIFF FINAL Differential Comment Blood Urea Nitrogen 13 MG/DL Creatinine 1.10 MG/DL Random Glucose 95 MG/DL Total Protein 8.5 GM/DL Albumin 3.0 GM/DL Calcium Level 9.1 MG/DL Alkaline Phosphatase 162 U/L Aspartate Amino Transf (AST/SGOT) 24 U/L Alanine Aminotransferase (ALT/SGPT) 22 U/L Total Bilirubin 0.7 MG/DL Sodium Level 136 MEQ/L Potassium Level 4.2 MEQ/L Chloride Level 103 MEQ/L Carbon Dioxide Level 24.1 MEQ/L Anion Gap 9 MEQ/L Estimat Glomerular Filtration Rate 84 ML/MIN Lipase 164 U/L Urine Color YELLOW Urine Turbidity CLEAR Urine pH 7.5 Urine Specific [place] 1.013 Urine Protein 30 mg/dL Urine Glucose (UA) NEG mg/dL Urine Ketones NEG mg/dL Urine Occult Blood TRACE Urine Nitrite NEG Urine Bilirubin NEG Urine Urobilinogen LESS THAN 2.0 MG/DL Urine Leukocyte Esterase NEG Urine RBC 7 /hpf Urine WBC 1 /hpf Microscopic Urinalysis Comment CULT NOT INDICATED MDM Medical Decision Making Medical Screen Exam Complete: Yes Emergency Medical Condition: Yes Interpretation(s) LABS: CBC is remarkable for mild anemia. CMP is unremarkable. Lipase is normal. UA is unremarkable. CT abdomen and pelvis: Abnormal bowel gas pattern concerning for early or partial small bowel obstruction. New moderate bilateral hydronephrosis. Abnormal soft tissue density remains in the presacral region likely representing postsurgical changes and scarring. No abscess. Abnormal appearance of the urinary bladder with apparent diverticulum exiting superiorly. Differential Diagnosis Obstruction, abscess, infection, inflammation, other Narrative Course Medical decision-making 56-year-old male with metastatic colon cancer here with worsening abdominal pain. Looks well. Soft abdomen without significant tenderness. We'll check labs, x-ray, reassess. FINAL: CT scan suggestive of early or partial obstruction. Also has a hydronephrosis is noted on his previous CT a couple weeks ago. We'll plan on admission for evaluation and treatment, consider consult with surgery and oncology. Diagnosis Primary Impression: Partial small bowel obstruction Admitting Information Admitting Physician Requests: Admit Elieser Douglas MD Mar 31, 2017 12:26
[2017-03-31] MEDS ORDERED: IOHEXOL 350 MG/ML 10 ML VIAL (for RAD DIAG) IVCONTRAST ONE (12:40)
--- NOTE | 2017-03-31 13:06 | RADRPT ---
EXAM DATE/TIME: 03/31/2017 12:39 [place] COMPARISON: CT ABDOMEN & PELVIS W CONTRAST, June 17, 2016, 15:28. INDICATIONS : Abdominal pain. IV CONTRAST: 96 cc Omnipaque 350 (iohexol) IV ORAL CONTRAST: No oral contrast ingested. RADIATION DOSE: 5.80 CTDIvol (mGy) MEDICAL HISTORY : Hypertension. Carcinoma, colon. Carcinoma, hepatocellular. Rectal ca SURGICAL HISTORY : Colostomy. Partial colectomy. ENCOUNTER: Initial ACUITY: 3 days PAIN SCALE: 8/10 LOCATION: abdominal. TECHNIQUE: Volumetric scanning of the abdomen and pelvis was performed. Using automated exposure control and ad justment of the mA and/or kV according to patient size, radiation dose was kept as low as reasonably achievable to obtain optimal diagnostic quality images. DICOM format image data is available electro nically for review and comparison. FINDINGS: LOWER LUNGS: The visualized lower lungs are clear. LIVER: Homogeneous density without lesion. There is no dilation of the biliary tree. No calcified gallston es. SPLEEN: Normal size without lesion. PANCREAS: Within normal limits. KIDNEYS: New moderate bilateral hydronephrosis is noted with dilatation of the proximal ureters down to the le elida of the pelvis. ADRENAL GLANDS: Within normal limits. VASCULAR: There is no aortic aneurysm. An inferior vena caval filter is now noted. BOWEL/MESENTERY: Postsurgical changes are again noted status post partial colectomy. An ostomy remains in the left low er quadrant. There is now an abnormal bowel gas pattern with multiple loops of borderline dilated air -containing small bowel with multiple air-fluid levels. There is no free air. Abnormal soft tissue de nsity is again noted in the presacral region. The previously noted abscess in this region is no longe r present. On the prior study there is a focal abscess ABDOMINAL WALL: An upper anterior abdominal wall hernia is again noted containing a loop of transverse colon. There i s no bowel wall thickening or obstruction in this region. An ostomy is again noted in the left lower abdomen. A RETROPERITONEUM: There is no lymphadenopathy. BLADDER: No wall thickening or mass. On the coronal images the bladder now appears performed with a large appa rent diverticulum extending superiorly. REPRODUCTIVE: Within normal limits. INGUINAL: There is no lymphadenopathy or hernia. MUSCULOSKELETAL: Within normal limits for patient age. CONCLUSION: 1. Abnormal bowel gas pattern concerning for early or partial small bowel obstruction. 2. New bilateral moderate hydronephrosis. 3. Abnormal soft tissue density remains in the presacral region likely representing postsurgical gilman ge and scarring. The previously noted abscess is no longer present. 4. Abnormal appearance of the urinary bladder with apparent diverticulum extending superiorly. 5. Interval placement of inferior vena caval filter. Quan Bowman MD on March 31, 2017 at 12:58 Board Certified Radiologist. This report was verified electronically.
[2017-03-31 16:00] VITALS: BP 158/89; PULSE 65; RESP 16; TEMP 97; O2SAT 99
[2017-03-31] MEDS ORDERED: ENOXAPARIN SODIUM 40 MG/0.4 ML SYRINGE SQ SCH (18:45)
--- NOTE | 2017-03-31 19:21 | HHI.HP ---
[facility] No Primary Care Physician Admission Diagnosis partial SBO Diagnoses: Travel History International Travel<30 Days: No Contact w/Intl Traveler <30 Da: No Traveled to Known Affected Are: No History of Present Illness Is a 56-year-old male with past medical history of metastatic rectal carcinoma who presents to the emergency department complaining of abdominal pain. The patient states that 2 days ago on Wednesday he started having diffuse abdominal pain which was periumbilical, 8/10 intensity without any clear alleviating or aggravating factors. The patient denies any nausea vomiting, denies associated fevers or chills and describes the pain as cramping like pain. The patient states that since 2 days ago on Wednesday he's been having loose stools running to his colostomy bag. The patient states that usually he has some right lower quadrant abdominal pain, but this pain was different. The patient has history of rectal cancer that was treated with colectomy and end colostomy years ago. The patient still on chemotherapy with Avastin every several weeks. Review of Systems As per history of present illness, other systems reviewed by me and negative. Past Family Social History Past Medical History 1. Metastatic rectal CA, status post proctosigmoidectomy with Morison's pouch and colostomy. 2. History of lateral lower extremity DVT on November 2016, currently on Xarelto. 3. Hypertension. 4. Pituitary adenoma. Past Surgical History 1. Proctosigmoidoscopy with Morison's pouch and colostomy placement. Reported Medications Reported Meds & Active Scripts Active Lortab (Hydrocodone-Acetaminophen) 5-325 Mg Tab 1 Tab PO Q6H PRN Reported Potassium Chloride ER (Potassium Chloride) 10 Meq Tab 10 Meq PO BID Doxazosin (Doxazosin Mesylate) 4 Mg Tab 4 Mg PO HS Gabapentin 300 Mg Cap 300 Mg PO TID Atenolol 50 Mg Tab 50 Mg PO DAILY Nifedipine ER 24 HR (Nifedipine) 60 Mg Tab 1 Cap PO DAILY Lisinopril 40 Mg Tab 40 Mg PO DAILY Allergies: Coded Allergies: No Known Allergies (Verified Allergy, Unknown, 11/1/17) Active Ordered Medications Current Medications Medications (Trade) Dose Ordered Sig/John Route Start Time Stop Time Status Last Admin (NS Flush) 2 ml UNSCH PRN IV FLUSH 03/31/17 10:15 (Lovenox Inj) 40 mg Q24H SQ 03/31/17 18:45 Family History Patient states he had a sister who from leukemia. The patient's mother is a breast cancer survivor. The patient states he had a brother who from brain cancer. Social History Patient denies smoking, alcohol consumption or drug use. The patient is and has 3 daughters. Physical Exam Vital Signs Vital Signs Date Time Temp Pulse Resp B/P (MAP) Pulse Ox O2 Delivery O2 Flow Rate FiO2 03/31/17 16:00 97.0 65 16 158/89 (112) 99 03/31/17 15:59 03/31/17 08:57 98.7 107 20 161/98 (119) 100 Room Air Physical Exam GENERAL: This is a well-nourished, well-developed patient, in no apparent distress. SKIN: No rashes, ecchymoses or lesions. Cool and dry. HEAD: Atraumatic. Normocephalic. No temporal or scalp tenderness. EYES: Pupils equal round and reactive. Extraocular motions intact. No scleral icterus. No injection or drainage. ENT: Nose without bleeding, purulent drainage or septal hematoma. Throat without erythema, tonsillar hypertrophy or exudate. Uvula midline. Airway patent. NECK: Trachea midline. No JVD or lymphadenopathy. Supple, nontender, no meningeal signs. CARDIOVASCULAR: Regular rate and rhythm without murmurs, gallops, or rubs. RESPIRATORY: Clear to auscultation. Breath sounds equal bilaterally. No wheezes , rales, or rhonchi. GASTROINTESTINAL: Abdomen soft, non-tender, nondistended. No hepato-splenomegaly , or palpable masses. No guarding. MUSCULOSKELETAL: Extremities without clubbing, cyanosis, or edema. No joint tenderness, effusion, or edema noted. No calf tenderness. Negative Homans sign bilaterally. NEUROLOGICAL: Awake and alert. Cranial nerves II through XII intact. Motor and sensory grossly within normal limits. Five out of 5 muscle strength in all muscle groups. Normal speech. Laboratory Laboratory Tests Test 03/31/17 10:30 03/31/17 11:00 White Blood Count 7.2 Red Blood Count 4.04 Hemoglobin 10.6 Hematocrit 32.9 Mean Corpuscular Volume 81.6 Mean Corpuscular Hemoglobin 26.2 Mean Corpuscular Hemoglobin Concent 32.1 Red Cell Distribution Width 21.5 Platelet Count 228 Mean Platelet Volume 8.2 Neutrophils (%) (Auto) 63.2 Lymphocytes (%) (Auto) 17.3 Monocytes (%) (Auto) 18.6 Eosinophils (%) (Auto) 0.5 Basophils (%) (Auto) 0.4 Neutrophils # (Auto) 4.5 Lymphocytes # (Auto) 1.2 Monocytes # (Auto) 1.3 Eosinophils # (Auto) 0.0 Basophils # (Auto) 0.0 CBC Comment DIFF FINAL Differential Comment Blood Urea Nitrogen 13 Creatinine 1.10 Random Glucose 95 Total Protein 8.5 Albumin 3.0 Calcium Level 9.1 Alkaline Phosphatase 162 Aspartate Amino Transf (AST/SGOT) 24 Alanine Aminotransferase (ALT/SGPT) 22 Total Bilirubin 0.7 Sodium Level 136 Potassium Level 4.2 Chloride Level 103 Carbon Dioxide Level 24.1 Anion Gap 9 Estimat Glomerular Filtration Rate 84 Lipase 164 Urine Color YELLOW Urine Turbidity CLEAR Urine pH 7.5 Urine Specific [place] 1.013 Urine Protein 30 Urine Glucose (UA) NEG Urine Ketones NEG Urine Occult Blood TRACE Urine Nitrite NEG Urine Bilirubin NEG Urine Urobilinogen LESS THAN 2.0 Urine Leukocyte Esterase NEG Urine RBC 7 Urine WBC 1 Microscopic Urinalysis Comment CULT NOT INDICATED Result Diagram: 03/31/17 1030 03/31/17 1030 Imaging Last Impressions Abdomen/Pelvis CT 03/31/17 1012 Signed Impressions: Service Date/Time: Friday, March 31, 2017 12:39 - CONCLUSION: 1. Abnormal bowel gas pattern concerning for early or partial small bowel obstruction. 2. New bilateral moderate hydronephrosis. 3. Abnormal soft tissue density remains in the presacral region likely representing postsurgical change and scarring. The previously noted abscess is no longer present. 4. Abnormal appearance of the urinary bladder with apparent diverticulum extending superiorly. 5. Interval placement of inferior vena caval filter. MD Jayna Courtneyi VTE Risk Assessment Caprini VTE Risk Assessment: Mod/High Risk (score >= 2) Caprini Risk Assessment Model Point Value = 1 Point Value = 2 Point Value = 3 Point Value = 5 Age 41-60 Minor surgery BMI > 25 kg/m2 Swollen legs Varicose veins or History of unexplained or recurrent spontaneous Oral contraceptives or hormone replacement Sepsis (< 1 month) Serious lung disease, including pneumonia (< 1 month) Abnormal pulmonary function Acute myocardial infarction Congestive heart failure (< 1 month) History of inflammatory bowel disease Medical patient at bed rest Age 61-74 Arthroscopic surgery Major open surgery (> 45 min) Laparoscopic surgery (> 45 min) Malignancy Confined to bed (> 72 hours) Immobilizing plaster cast Central venous access Age >= 75 History of VTE Family history of VTE Factor V Leiden Prothrombin [id number] Lupus anticoagulant Anticardiolipin antibodies Elevated serum homocysteine Heparin-induced thrombocytopenia Other congenital or acquired thrombophilia Stroke (< 1 month) Elective arthroplasty Hip, pelvis, or leg fracture Acute spinal cord injury (< 1 month) Prophylaxis Regimen Total Risk Factor Score Risk Level Prophylaxis Regimen 0-1 Low Early ambulation 2 Moderate Order ONE of the following: *Sequential Compression Device (SCD) *Heparin 5000 units SQ BID 3-4 Higher Order ONE of the following medications: *Heparin 5000 units SQ TID *Enoxaparin/Lovenox 40 mg SQ daily (WT < 150 kg, CrCl > 30 mL/min) *Enoxaparin/Lovenox 30 mg SQ daily (WT < 150 kg, CrCl > 10-29 mL/min) *Enoxaparin/Lovenox 30 mg SQ BID (WT < 150 kg, CrCl > 30 mL/min) AND/OR *Sequential Compression Device (SCD) 5 or more Highest Order ONE of the following medications: *Heparin 5000 units SQ TID (Preferred with Epidurals) *Enoxaparin/Lovenox 40 mg SQ daily (WT < 150 kg, CrCl > 30 mL/min) *Enoxaparin/Lovenox 30 mg SQ daily (WT < 150 kg, CrCl > 10-29 mL/min) *Enoxaparin/Lovenox 30 mg SQ BID (WT < 150 kg, CrCl > 30 mL/min) AND *Sequential Compression Device (SCD) Assessment and Plan Problem List: (1) Partial small bowel obstruction ICD Code: K56.600 - Partial intestinal obstruction, unspecified as to cause Status: Acute (2) Hypertension ICD Code: I10 - Hypertension Status: Chronic (3) Bilateral hydronephrosis ICD Code: N13.30 - Unspecified hydronephrosis (4) History of DVT (deep vein thrombosis) ICD Code: Z86.718 - Personal history of other venous thrombosis and embolism (5) Colon cancer metastasized to multiple sites ICD Code: C18.9 - Malignant neoplasm of colon, unspecified Status: Chronic Assessment and Plan Admit the patient to the medical floor Treat conservatively with IV fluids and pain control with IV morphine. General surgery consultation Oncology consultation Keep nothing by mouth for now Continue Cardura, atenolol, nifedipine and lisinopril for blood pressure control Hold Xarelto for now, the patient has an IVC filter. Patient also complaining of some loose stools, will check C. difficile as he states that antibiotics for a UTI one month ago. Consult urology for bilateral hydronephrosis. DVT prophylaxis: We'll place on Lovenox subcutaneously. Xarelto should be resumed if patient will not have surgery. Code Status Full code Discussed Condition With Patient, ED physician, Dr Borrero Physician Certification 2 Midnight Certification Type: Admission for Inpatient Services Order for Inpatient Services The services are ordered in accordance with Medicare regulations or non- Medicare payer requirements, as applicable. In the case of services not specified as inpatient-only, they are appropriately provided as inpatient services in accordance with the 2-midnight benchmark. Estimated LOS (days): 2 days is the estimated time the patient will need to remain in the hospital, assuming treatment plan goals are met and no additional complications. Post-Hospital Plan: Not yet determined Arik Rubio MD Mar 31, 2017 19:21
[2017-03-31 20:00] VITALS: BP 154/84; PULSE 50; RESP 17; TEMP 96.8; O2SAT 96
[2017-03-31] MEDS: SODIUM CHLORIDE 0.9% FLUSH 10 ML FLUSH IV FLUSH SCH (20:52)
[2017-03-31] MEDS: DOXAZOSIN MESYLATE 4 MG TAB PO SCH (20:55)
[2017-03-31] MEDS: SODIUM CHLOR 0.9% 1000 ML INJ 1,000 ML IV SCH (20:55)
[2017-03-31] MEDS: HEPARIN SODIUM - SQ 10,000 UNITS/ML VIAL SQ SCH (20:55)
[2017-03-31] MEDS ORDERED: ONDANSETRON HCL 4 MG/2 ML VIAL IV PUSH PRN (22:45)
[2017-03-31] MEDS ORDERED: MORPHINE SULFATE 4 MG/ML INJ IM PRN (23:00)
[2017-04-01] VITALS: BP 117/79; PULSE 70; RESP 16; TEMP 96.9; O2SAT 97
[2017-04-01] MEDS: HEPARIN SODIUM - SQ 10,000 UNITS/ML VIAL SQ SCH ×3 (05:50→23:14)
[2017-04-01] MEDS: SODIUM CHLOR 0.9% 1000 ML INJ 1,000 ML IV SCH ×2 (05:51→15:22)
--- NOTE | 2017-04-01 06:32 | MB ---
cc: JAISON DUFF M.D. DATE OF CONSULTATION March 31, [address] Kohler REASON FOR CONSULTATION Oncology consulted to render opinion regarding a patient with metastatic colorectal cancer, admitted with small bowel obstruction. HISTORY OF PRESENT ILLNESS The patient is a very pleasant 56-year-old male with history of metastatic colorectal cancer currently on palliative chemotherapy. He presented with complaint of increased abdominal pain. He was in his usual state of health until Wednesday when he developed diffuse abdominal pain mostly in the mid-abdomen. He described a crampy, bloating sensation. It waxes and wanes. He also has loose stool output in the colostomy. He denies any nausea or vomiting. He has decreased oral intake. He is able to drink fluid. He was able to eat some food yesterday. He denies any fever or chills. Denies any chest pain or shortness of breath. Denies any dysuria or hematuria. On presentation CT of the abdomen and pelvis showed finding suggestive of partial small-bowel obstruction. PAST MEDICAL HISTORY 1. Metastatic rectal cancer T-[place] wild type. He was diagnosed in 2012, treated with neoadjuvant radiation and Xeloda. He subsequently developed massive disease. He is currently receiving 5-FU infusion. 2. Anxiety. 3. Asthma. 4. Depression. 5. Hypertension. 6. Left lower extremity deep venous thrombosis in May of 2016. 7. Pituitary adenoma. PAST SURGICAL HISTORY 1. IVC filter placement. 2. Bladder biopsy. 3. Port placement. 4. Exploratory laparotomy with proctosigmoidectomy, Bel pouch and colostomy in 2012. 5. Rectal biopsy. 6. EGD and colonoscopy in 2012. FAMILY HISTORY Noncontributory. SOCIAL HISTORY Denies tobacco or alcohol use. ALLERGIES No known drug allergies. MEDICATIONS Outpatient medications include - 1. Atenolol. 2. Doxazosin. 3. Gabapentin. 4. Lortab. 5. Lisinopril. 6. Nifedipine. 7. Potassium chloride. REVIEW OF SYSTEMS CONSTITUTIONAL: As above. EYES: Negative. ENT: Negative. CARDIOVASCULAR: Denies chest pressure, palpitations. RESPIRATORY: Negative. GI: As above. : No dysuria or hematuria. MUSCULOSKELETAL: Has chronic back pain. HEMATOLOGY: Negative. ENDOCRINE: Negative. DERMATOLOGY: Negative. PSYCHIATRIC: Negative. NEUROLOGIC: Negative. PHYSICAL EXAMINATION VITALS: Temperature 97, blood pressure 158/89, O2 saturation 99% on room air. GENERAL: He is alert and oriented x3, in no acute distress. HEENT: Atraumatic, normocephalic. Pupils equal, round and reactive to light. Extraocular muscles intact. No scleral icterus. Oropharynx - Dry mucosa; no lesion. NECK: No thyromegaly. No palpable mass. LYMPHATICS: No palpable cervical, clavicular, axillary or inguinal lymph nodes. CARDIOVASCULAR: Regular S1-S2. No murmur. LUNGS: Clear to auscultation bilaterally. ABDOMEN: Soft. Tender in the mid-abdomen. No rebound or rigidity. Bowel sounds decreased. Colostomy noted with liquid stool. EXTREMITY EXAM: No cyanosis, clubbing or edema. No calf tenderness. SKIN: No rash or petechiae. NEUROLOGIC: Nonfocal. LABORATORY DATA Reviewed. ASSESSMENT 1. Abdominal pain of three days duration. He has no nausea or vomiting. CT showed abnormal bowel gas pattern concerning for early partial small-bowel obstruction. There were no new masses noted. There was a soft tissue density in the presacral area but it is chronic due to prior therapy changes. His abdomen is not distended and he has no nausea or vomiting. His bowel sounds are decreased and possibly he could have ileus. He is awaiting evaluation by Colorectal Surgery. He will likely be managed conservatively for now. 2. Metastatic rectal cancer. He was first diagnosed with rectal cancer in 2012, treated with neoadjuvant radiation and Xeloda followed by rectosigmoid resection. Pathologic stage T3 N0. He developed metastatic disease in the liver in October of 2014 which was biopsy-proven. He was treated with Avastin and FOLFOX but later developed allergic reaction to oxaliplatin. He was maintained on Avastin and 5-FU. Recently the Avastin was put on hold because he had a rectal abscess. His last 5-FU infusion was on March 18. His recent CT scan showed chronic abnormal soft tissue in the presacral area but no evidence of progression of disease. 3. Bilateral hydronephrosis noted on CT scan. It is possible he has obstruction of the ureter due to pelvic soft tissue mass or scar. He was evaluated by Urology. He will need further urologic workup and possible stent placement. 4. Recent history of rectal abscess/rectal bleed which was drained. His rectal discharge has now resolved. 5. History of left lower extremity venous thrombosis status post IVC filter placement. He was on Xarelto for awhile but recently discontinued. He has no evidence of recurrent clot. 6. Hypertension, stable. 7. Hypokalemia, on supplement. RECOMMENDATIONS 1. Continue IV fluid hydration. 2. Await surgical evaluation. 3. No clear evidence of recurrence or progression of rectal cancer. 4. Consult Urology for management of hydronephrosis. 5. DVT prophylaxis with Lovenox. 6. Discussed care with Dr. Kohler. Thank you Dr. Kohler for asking me to see this patient. MD GENNY Garcia/ROBERT /6:28 PM /6:14 AM [id number]
[2017-04-01 08:00] VITALS: BP 157/72; PULSE 66; RESP 17; TEMP 96.4; O2SAT 99
--- NOTE | 2017-04-01 08:51 | PD.ONC.PN ---
Subjective Subjective Remarks Afebrile overnight. Patient resting in bed in nad. States he feels a bit better today. Had a small amount of stool in ostomy bag. No nausea or vomiting. Objective Data Date Time Temp Pulse Resp B/P (MAP) Pulse Ox O2 Delivery O2 Flow Rate FiO2 04/01/17 08:00 96.4 66 17 157/72 (100) 99 04/01/17 00:00 96.9 70 16 117/79 (92) 97 03/31/17 23:11 18 03/31/17 20:00 96.8 50 17 154/84 (107) 96 03/31/17 16:00 97.0 65 16 158/89 (112) 99 03/31/17 15:59 03/31/17 08:57 98.7 107 20 161/98 (119) 100 Room Air Result Diagram: 03/31/17 1030 03/31/17 1030 Laboratory Results Laboratory Tests Test 03/31/17 10:30 03/31/17 11:00 White Blood Count 7.2 TH/MM3 Red Blood Count 4.04 MIL/MM3 Hemoglobin 10.6 GM/DL Hematocrit 32.9 % Mean Corpuscular Volume 81.6 FL Mean Corpuscular Hemoglobin 26.2 PG Mean Corpuscular Hemoglobin Concent 32.1 % Red Cell Distribution Width 21.5 % Platelet Count 228 TH/MM3 Mean Platelet Volume 8.2 FL Neutrophils (%) (Auto) 63.2 % Lymphocytes (%) (Auto) 17.3 % Monocytes (%) (Auto) 18.6 % Eosinophils (%) (Auto) 0.5 % Basophils (%) (Auto) 0.4 % Neutrophils # (Auto) 4.5 TH/MM3 Lymphocytes # (Auto) 1.2 TH/MM3 Monocytes # (Auto) 1.3 TH/MM3 Eosinophils # (Auto) 0.0 TH/MM3 Basophils # (Auto) 0.0 TH/MM3 CBC Comment DIFF FINAL Differential Comment Blood Urea Nitrogen 13 MG/DL Creatinine 1.10 MG/DL Random Glucose 95 MG/DL Total Protein 8.5 GM/DL Albumin 3.0 GM/DL Calcium Level 9.1 MG/DL Alkaline Phosphatase 162 U/L Aspartate Amino Transf (AST/SGOT) 24 U/L Alanine Aminotransferase (ALT/SGPT) 22 U/L Total Bilirubin 0.7 MG/DL Sodium Level 136 MEQ/L Potassium Level 4.2 MEQ/L Chloride Level 103 MEQ/L Carbon Dioxide Level 24.1 MEQ/L Anion Gap 9 MEQ/L Estimat Glomerular Filtration Rate 84 ML/MIN Lipase 164 U/L Urine Color YELLOW Urine Turbidity CLEAR Urine pH 7.5 Urine Specific [place] 1.013 Urine Protein 30 mg/dL Urine Glucose (UA) NEG mg/dL Urine Ketones NEG mg/dL Urine Occult Blood TRACE Urine Nitrite NEG Urine Bilirubin NEG Urine Urobilinogen LESS THAN 2.0 MG/DL Urine Leukocyte Esterase NEG Urine RBC 7 /hpf Urine WBC 1 /hpf Microscopic Urinalysis Comment CULT NOT INDICATED Imaging Studies Last 24 hours Impressions Abdomen/Pelvis CT 03/31/17 1012 Signed Impressions: Service Date/Time: Friday, March 31, 2017 12:39 - CONCLUSION: 1. Abnormal bowel gas pattern concerning for early or partial small bowel obstruction. 2. New bilateral moderate hydronephrosis. 3. Abnormal soft tissue density remains in the presacral region likely representing postsurgical change and scarring. The previously noted abscess is no longer present. 4. Abnormal appearance of the urinary bladder with apparent diverticulum extending superiorly. 5. Interval placement of inferior vena caval filter. Quan Bowman MD Administered Medications Medications (Trade) Dose Ordered Sig/John Route PRN Reason Start Time Stop Time Status Last Admin Dose Admin Doxazosin Mesylate (Cardura) 4 mg HS PO 03/31/17 21:00 03/31/17 20:55 Sodium Chloride 1,000 ml @ 100 mls/hr Q10H IV 03/31/17 20:00 04/01/17 05:51 Heparin Sodium (Porcine) (Heparin Inj) 5,000 units Q8HR SQ 03/31/17 22:00 04/01/17 05:50 Morphine Sulfate (Morphine Inj) 3 mg Q3H PRN IM pain > 4 03/31/17 23:00 03/31/17 23:06 Objective Remarks GENERAL: Pleasant middle aged male lying in bed in nad. SKIN: Warm and dry. HEAD: Normocephalic. EYES: No injection or drainage. NECK: Supple, trachea midline CARDIOVASCULAR: Regular rate and rhythm RESPIRATORY: Breath sounds equal bilaterally. No accessory muscle use. GASTROINTESTINAL: Abdomen soft, non-tender, nondistended. +small amount of liquid stool in ostomy bag. EXTREMITIES: No cyanosis NEUROLOGICAL: awake and alert, normal speech. Assessment/Plan Problem List: (1) Colorectal cancer ICD Codes: C19 - Colorectal cancer Status: Acute Plan: --was first diagnosed with rectal cancer in 2012, treated with neoadjuvant radiation and Xeloda followed by rectosigmoid resection. Pathologic stage T3 N0. --developed metastatic disease in the liver in October of 2014 which was biopsy- proven. --treated with Avastin and FOLFOX but later developed allergic reaction to oxaliplatin. --maintained on Avastin and 5-FU. Recently the Avastin was put on hold because he had a rectal abscess. --last 5-FU infusion was on March 18. --recent CT scan showed chronic abnormal soft tissue in the presacral area but no evidence of progression of disease. (2) Abdominal pain ICD Codes: R10.9 - Unspecified abdominal pain Plan: --has no nausea or vomiting. --CT showed abnormal bowel gas pattern concerning for early partial small-bowel obstruction. --no new masses noted. ++soft tissue density in the presacral area but it is chronic due to prior therapy changes. (3) Bilateral hydronephrosis ICD Codes: N13.30 - Unspecified hydronephrosis Plan: --Bilateral hydronephrosis noted on CT scan. --possible he has obstruction of the ureter due to pelvic soft tissue mass or scar. --was evaluated by Urology. --will need further urologic workup and possible stent placement. (4) History of DVT (deep vein thrombosis) ICD Codes: Z86.718 - Personal history of other venous thrombosis and embolism Plan: --History of left lower extremity venous thrombosis status post IVC filter placement. --was on Xarelto for awhile but recently discontinued. -- has no evidence of recurrent clot. --on heparin 5K q 8 for clot prevention Assessment 56y/o male with metastatic colorectal cancer, admitted with small bowel obstruction. h/o Metastatic rectal cancer T[place] wild type. He was diagnosed in 2012, treated with neoadjuvant radiation and Xeloda. He subsequently developed massive disease. He is currently receiving 5-FU infusion. Anxiety. Asthma. Depression. Hypertension. Left lower extremity deep venous thrombosis in May of 2016. Pituitary adenoma. Plan 1. continue supportive care 2. await urology consult 3. await general surgery consult. Attending Statement The exam, history, and the medical decision-making described in the above note were completed with the assistance of the mid-level provider. I reviewed and agree with the findings presented. I attest that I had a [id number] encounter with the patient on the same day, and personally performed and documented my assessment and findings in the medical record. Feeling better. Abdominal pain improved. +bowel sound. Await surgical evaluation. continue supportive care. DVT prophy. Courtney Turner Apr 01, 2017 08:51 Sander Villalobos MD Apr 01, 2017 16:59
[2017-04-01] MEDS: SODIUM CHLORIDE 0.9% FLUSH 10 ML FLUSH IV FLUSH SCH ×2 (09:00→19:23)
[2017-04-01] MEDS: NIFEdipine 60 MG SUSTAINED RELEASE TAB PO SCH (09:07)
[2017-04-01] MEDS: ATENOLOL 50 MG TAB PO SCH (09:08)
[2017-04-01] MEDS: LISINOPRIL 20 MG TAB PO SCH (09:08)
[2017-04-01 12:00] VITALS: BP 136/81; PULSE 56; RESP 16; TEMP 96.4; O2SAT 99
[2017-04-01 16:00] VITALS: BP 119/71; PULSE 60; RESP 17; TEMP 98; O2SAT 99
--- NOTE | 2017-04-01 16:58 | PD.CONS ---
[facility] Service Urology Consult Requested By Dr. Villalobos Reason for Consult Bilateral hydronephrosis Primary Care Physician No Primary Care Physician Diagnosis: (1) Partial small bowel obstruction ICD Code: K56.600 - Partial intestinal obstruction, unspecified as to cause (2) Hypertension ICD Code: I10 - Hypertension (3) Bilateral hydronephrosis ICD Code: N13.30 - Unspecified hydronephrosis (4) History of DVT (deep vein thrombosis) ICD Code: Z86.718 - Personal history of other venous thrombosis and embolism (5) Colon cancer metastasized to multiple sites ICD Code: C18.9 - Malignant neoplasm of colon, unspecified History of Present Illness 56-year-old gentleman with history metastatic colorectal cancer who is presently being treated with palliative chemotherapy who was recently admitted for management of made abdominal pain. A CT scan was performed during present hospitalization with findings suggestive of partial small bowel obstruction also noted was bilateral hydroureteronephrosis which was previously seen on a CT scan performed on March 10 of this year. There was also a soft tissue density involving the presacral region noted. I reviewed the actual CT scan images and concur with the radiologist's impression. Patient was evaluated by my associate Dr. Lynne in January of this year for gross hematuria and was advised to have an outpatient cystoscopy performed. He was subsequently evaluated by the [facility] Urology group and scheduled for cystoscopy with bilateral stent placement on Apr 02. At the time of consultation, the patient denied any flank pain or any trouble voiding. He denied dysuria or hematuria. Review of Systems Constitutional: DENIES: Fever, Chills Gastrointestinal: COMPLAINS OF: Abdominal pain (midabdomen) Genitourinary: DENIES: Hematuria, Dysuria Musculoskeletal: DENIES: Back pain Except as stated in HPI: all other systems reviewed are Neg Past Family Social History Past Medical History Metastatic colorectal CA Hypertension Anxiety/depression Asthma Lower extremity DVT Pituitary adenoma Past Surgical History Status post proctosigmoidectomy with colostomy and Osborne's pouch Status post IVC filter placement Status post bladder biopsy Reported Medications Refer to EMR Allergies: Coded Allergies: No Known Allergies (Verified Allergy, Unknown, 03/31/17) Active Ordered Medications Refer to EMR Family History Reviewed and noncontributory Social History Denies tobacco, alcohol or illicit drug abuse Physical Exam Vital Signs Date Time Temp Pulse Resp B/P (MAP) Pulse Ox O2 Delivery O2 Flow Rate FiO2 04/01/17 16:00 98.0 60 17 119/71 (87) 99 04/01/17 12:00 96.4 56 16 136/81 (99) 99 04/01/17 08:00 96.4 66 17 157/72 (100) 99 04/01/17 00:00 96.9 70 16 117/79 (92) 97 03/31/17 23:11 18 03/31/17 20:00 96.8 50 17 154/84 (107) 96 Physical Exam GENERAL: This is a well-nourished, well-developed patient, in no apparent distress. SKIN: No rashes, ecchymoses or lesions. Cool and dry. HEAD: Atraumatic. Normocephalic. No temporal or scalp tenderness. EYES: Pupils equal round and reactive. Extraocular motions intact. No scleral icterus. No injection or drainage. ENT: Nose without bleeding, purulent drainage or septal hematoma. Throat without erythema, tonsillar hypertrophy or exudate. Uvula midline. Airway patent. NECK: Trachea midline. No JVD or lymphadenopathy. Supple, nontender, no meningeal signs. CARDIOVASCULAR: Regular rate and rhythm without murmurs, gallops, or rubs. RESPIRATORY: Clear to auscultation. Breath sounds equal bilaterally. No wheezes , rales, or rhonchi. GASTROINTESTINAL: Abdomen not distended. No guarding or rebound tenderness. Colostomy present. GENITOURINARY: No CVA tenderness, bladder not distended MUSCULOSKELETAL: Extremities without clubbing, cyanosis, or edema. No joint tenderness, effusion, or edema noted. No calf tenderness. Negative Homans sign bilaterally. NEUROLOGICAL: Awake and alert. Cranial nerves II through XII intact. Motor and sensory grossly within normal limits. Five out of 5 muscle strength in all muscle groups. Normal speech. Lab results reviewed: Yes Laboratory Tests Test 04/01/17 10:48 Stool C. difficile Toxin (PCR) NEGATIVE Stl C. difficile Toxin Epiderm 027 PRESUMPTIVE NEGATIVE Result Diagram: 03/31/17 1030 03/31/17 1030 Personally reviewed images: Yes Imaging Last Impressions Abdomen/Pelvis CT 03/31/17 1012 Signed Impressions: Service Date/Time: Friday, March 31, 2017 12:39 - CONCLUSION: 1. Abnormal bowel gas pattern concerning for early or partial small bowel obstruction. 2. New bilateral moderate hydronephrosis. 3. Abnormal soft tissue density remains in the presacral region likely representing postsurgical change and scarring. The previously noted abscess is no longer present. 4. Abnormal appearance of the urinary bladder with apparent diverticulum extending superiorly. 5. Interval placement of inferior vena caval filter. Quan Bowman MD Assessment and Plan Assessment and Plan Urologic impression: #1 bilateral hydroureteronephrosis that has been present for the past several weeks #2 presacral mass which may possibly be compressing the ureters and causing the hydronephrosis #3 recent history gross hematuria now resolved Plan: #1 renal scan with Lasix washout #2 further recommendations pending results of renal scan Jeffery Rich MD Apr 01, 2017 16:58
[2017-04-01] MEDS: DOXAZOSIN MESYLATE 4 MG TAB PO SCH (19:23)
[2017-04-01 20:56] VITALS: BP 113/74; PULSE 69; RESP 19; TEMP 98.3; O2SAT 98
[2017-04-02 00:45] VITALS: BP 126/77; PULSE 68; RESP 18; TEMP 98.7; O2SAT 100
--- NOTE | 2017-04-02 01:09 | HHI.PR ---
Subjective Remarks late entry - patient seen at 11:15 am PAtient states abdominal pain has improved denies nausea or vomiting denies fevers/chills Objective Vitals Vital Signs Date Time Temp Pulse Resp B/P (MAP) Pulse Ox O2 Delivery O2 Flow Rate FiO2 04/02/17 00:45 98.7 68 18 126/77 (93) 100 04/01/17 20:56 98.3 69 19 113/74 (87) 98 04/01/17 16:00 98.0 60 17 119/71 (87) 99 04/01/17 12:00 96.4 56 16 136/81 (99) 99 04/01/17 08:00 96.4 66 17 157/72 (100) 99 I/O 04/01/17 04/01/17 04/01/17 04/02/17 04/02/17 04/02/17 07:00 15:00 23:00 07:00 15:00 23:00 Intake Total 900 ml Output Total 1 ml 325 ml Balance 899 ml -325 ml Intake Oral 900 ml Output Urine Total 325 ml Stool Total 1 ml # Voids 3 7 Result Diagram: 03/31/17 1030 03/31/17 1030 Imaging Last Impressions Abdomen/Pelvis CT 03/31/17 1012 Signed Impressions: Service Date/Time: Friday, March 31, 2017 12:39 - CONCLUSION: 1. Abnormal bowel gas pattern concerning for early or partial small bowel obstruction. 2. New bilateral moderate hydronephrosis. 3. Abnormal soft tissue density remains in the presacral region likely representing postsurgical change and scarring. The previously noted abscess is no longer present. 4. Abnormal appearance of the urinary bladder with apparent diverticulum extending superiorly. 5. Interval placement of inferior vena caval filter. Quan Bowman MD Objective Remarks AAOx3 Clear lungs BL S1S2 Abdomen soft, mildly tender to palpation, bowel sounds present and presence of brown liquid stool in colostomy bag A/P Problem List: (1) Partial small bowel obstruction ICD Code: K56.600 - Partial intestinal obstruction, unspecified as to cause Status: Acute Plan: Continue IV fluids, pain control On full liquid diet - advance as tolerated continue Zofran as needed for nausea (2) Hypertension ICD Code: I10 - Hypertension Status: Chronic Plan: BP stable. Continue cardura, lisinopril, atenolol and Nifedipine. Monitor BP. (3) Bilateral hydronephrosis ICD Code: N13.30 - Unspecified hydronephrosis Plan: Urology consulted. renal scan with Lasix washout ordered. (4) History of DVT (deep vein thrombosis) ICD Code: Z86.718 - Personal history of other venous thrombosis and embolism Plan: Continue to hold xarelto - patient has an IVC filter (5) Colon cancer metastasized to multiple sites ICD Code: C18.9 - Malignant neoplasm of colon, unspecified Status: Chronic Plan: appreciate oncology consultation and recommendations. (6) Loose stools ICD Code: R19.5 - Other fecal abnormalities Status: Chronic Plan: C diff ruled out Assessment and Plan DVT prophylaxis: SCD's, hold xarelto - patient has IVC filter. Discharge Planning Pending clinical improvement. Renal scan pending. Arik Rubio MD Apr 02, 2017 01:09
[2017-04-02] MEDS: SODIUM CHLOR 0.9% 1000 ML INJ 1,000 ML IV SCH ×2 (01:24→11:33)
[2017-04-02 05:02] VITALS: BP 123/82; PULSE 73; RESP 18; TEMP 97.5; O2SAT 100
[2017-04-02] MEDS: HEPARIN SODIUM - SQ 10,000 UNITS/ML VIAL SQ SCH ×3 (06:04→22:16)
--- NOTE | 2017-04-02 07:49 | PD.ONC.PN ---
Subjective Subjective Remarks Feeling better. No abdominal pain this morning. + liquid stool. No rectal bleeding. Objective Data Date Time Temp Pulse Resp B/P (MAP) Pulse Ox O2 Delivery O2 Flow Rate FiO2 04/02/17 05:02 97.5 73 18 123/82 (96) 100 04/02/17 00:45 98.7 68 18 126/77 (93) 100 04/01/17 20:56 98.3 69 19 113/74 (87) 98 04/01/17 16:00 98.0 60 17 119/71 (87) 99 04/01/17 12:00 96.4 56 16 136/81 (99) 99 04/01/17 08:00 96.4 66 17 157/72 (100) 99 04/02/17 04/02/17 04/02/17 07:00 15:00 23:00 Intake Total 1000 ml Output Total 1465 ml 250 ml Balance -465 ml -250 ml Result Diagram: 03/31/17 1030 03/31/17 1030 Laboratory Results Laboratory Tests Test 04/01/17 10:48 Stool C. difficile Toxin (PCR) NEGATIVE Stl C. difficile Toxin Epiderm 027 PRESUMPTIVE NEGATIVE Administered Medications Medications (Trade) Dose Ordered Sig/John Route PRN Reason Start Time Stop Time Status Last Admin Dose Admin Atenolol (Tenormin) 50 mg DAILY PO 04/01/17 09:00 04/01/17 09:08 Doxazosin Mesylate (Cardura) 4 mg HS PO 03/31/17 21:00 04/01/17 19:23 Nifedipine (Procardia Xl) 60 mg DAILY PO 04/01/17 09:00 04/01/17 09:07 Lisinopril (Prinivil) 40 mg DAILY PO 04/01/17 09:00 04/01/17 09:08 Sodium Chloride 1,000 ml @ 100 mls/hr Q10H IV 03/31/17 20:00 04/02/17 01:24 Heparin Sodium (Porcine) (Heparin Inj) 5,000 units Q8HR SQ 03/31/17 22:00 04/02/17 06:04 Morphine Sulfate (Morphine Inj) 3 mg Q3H PRN IM pain > 4 03/31/17 23:00 03/31/17 23:06 Objective Remarks GENERAL: Well-nourished, well-developed patient. SKIN: Warm and dry. HEAD: Normocephalic. EYES: No scleral icterus. No injection or drainage. NECK: Supple, trachea midline. No JVD or lymphadenopathy. LYMPHATIC: No adenopathy. CARDIOVASCULAR: Regular rate and rhythm without murmurs. RESPIRATORY: Breath sounds equal bilaterally. No accessory muscle use. GASTROINTESTINAL: Abdomen soft, non-tender, nondistended. +BS Colostomy liquid yellow stool EXTREMITIES: No cyanosis, or edema. MUSCULOSKELETAL: Adequate muscle tone. NEUROLOGICAL: No obvious focal deficit. Awake, alert, and oriented x3. PSYCHIATRIC: Appropriate mood and affect; insight and judgment normal. Assessment/Plan Problem List: (1) Colorectal cancer ICD Codes: C19 - Colorectal cancer Status: Acute Plan: --was first diagnosed with rectal cancer in 2012, treated with neoadjuvant radiation and Xeloda followed by rectosigmoid resection. Pathologic stage T3 N0. --developed metastatic disease in the liver in October of 2014 which was biopsy- proven. --treated with Avastin and FOLFOX but later developed allergic reaction to oxaliplatin. --maintained on Avastin and 5-FU. Recently the Avastin was put on hold because he had a rectal abscess. --last 5-FU infusion was on March 18. --recent CT scan showed chronic abnormal soft tissue in the presacral area but no evidence of progression of disease. (2) Abdominal pain ICD Codes: R10.9 - Unspecified abdominal pain Plan: --Improving --has no nausea or vomiting. --CT showed abnormal bowel gas pattern concerning for early partial small-bowel obstruction. --no new masses noted. ++soft tissue density in the presacral area but it is chronic due to prior therapy changes. (3) Bilateral hydronephrosis ICD Codes: N13.30 - Unspecified hydronephrosis Plan: --Bilateral hydronephrosis noted on CT scan. --possible he has obstruction of the ureter due to pelvic soft tissue mass or scar. --was evaluated by Urology. --will need further urologic workup and possible stent placement. (4) History of DVT (deep vein thrombosis) ICD Codes: Z86.718 - Personal history of other venous thrombosis and embolism Plan: --History of left lower extremity venous thrombosis status post IVC filter placement. --was on Xarelto for awhile but recently discontinued. -- has no evidence of recurrent clot. --on heparin 5K q 8 for clot prevention Assessment 56y/o male with metastatic colorectal cancer, admitted with small bowel obstruction. h/o Metastatic rectal cancer T[place] wild type. He was diagnosed in 2012, treated with neoadjuvant radiation and Xeloda. He subsequently developed massive disease. He is currently receiving 5-FU infusion. Anxiety. Asthma. Depression. Hypertension. Left lower extremity deep venous thrombosis in May of 2016. Pituitary adenoma. Plan 1. continue supportive care 2. await renal scan per urology 3. F/u oncology clinic after d/c. Sander Villalobos MD Apr 02, 2017 07:49
[2017-04-02 08:00] VITALS: BP 129/80; PULSE 107; RESP 18; TEMP 96.8; O2SAT 100
[2017-04-02] MEDS ORDERED: FUROSEMIDE 40 MG/4 ML VIAL ONE (09:08)
[2017-04-02] MEDS: NIFEdipine 60 MG SUSTAINED RELEASE TAB PO SCH (10:12)
[2017-04-02] MEDS: LISINOPRIL 20 MG TAB PO SCH (10:12)
[2017-04-02] MEDS: SODIUM CHLORIDE 0.9% FLUSH 10 ML FLUSH IV FLUSH SCH ×2 (10:13→22:16)
[2017-04-02] MEDS: ATENOLOL 50 MG TAB PO SCH (10:13)
--- NOTE | 2017-04-02 10:29 | RADRPT ---
EXAM DATE/TIME: 04/02/2017 08:52 [facility] COMPARISON: CT ABDOMEN & PELVIS W CONTRAST, March 31, 2017, 12:39. INDICATIONS : Bilateral hydronephrosis. DOSE: 21.2 mCi Tc99m DTPA IV MEDICATION: 40 mg Lasix IV MEDICAL HISTORY : Carcinoma, colon. Carcinoma, hepatocellular. Carcinoma, rectal. SURGICAL HISTORY : Colostomy. ENCOUNTER: Initial ACUITY: 3 days PAIN SCALE: 4/10 LOCATION: Bilateral flank TECHNIQUE: Dynamic images were performed in the posterior projection for a total of 28 minutes. FINDINGS: FLOW: There is symmetric arrival of bolus to both kidneys. There is homogeneous perfusion to both kidneys. EXCRETION: There is delayed excretion in both kidneys with no significant increase in washout with Lasix. CONCLUSION: Differential function, 55% left 45% right minimal delayed washout with no change with Lasix. This wo uld suggest partial fixed obstruction bilaterally. Wing Jauregui MD FACR on April 02, 2017 at 10:25 Board Certified Radiologist. This report was verified electronically.
[2017-04-02 12:00] VITALS: BP 116/74; PULSE 64; RESP 17; TEMP 97.7; O2SAT 100
--- NOTE | 2017-04-02 14:51 | HHI.PR ---
Subjective Patient symptoms today Denies voiding complaints. Denies abdominal pain. Objective Vital Signs Vital Signs Date Time Temp Pulse Resp B/P (MAP) Pulse Ox O2 Delivery O2 Flow Rate FiO2 04/02/17 12:00 97.7 64 17 116/74 (88) 100 04/02/17 08:00 96.8 107 18 129/80 (96) 100 04/02/17 05:02 97.5 73 18 123/82 (96) 100 04/02/17 00:45 98.7 68 18 126/77 (93) 100 04/01/17 20:56 98.3 69 19 113/74 (87) 98 04/01/17 16:00 98.0 60 17 119/71 (87) 99 Intake & Output 04/02/17 04/02/17 07:00 19:00 Intake Total 1000 ml Output Total 1465 ml 250 ml Balance -465 ml -250 ml IV Total 1000 ml Output Urine Total 325 ml 250 ml Stool Total 1140 ml Result Diagram: 03/31/17 1030 03/31/17 1030 Imaging Last 24 hours Impressions Renal Scan w/Medication NM 04/02/17 0000 Signed Impressions: Service Date/Time: Sunday, April 02, 2017 08:52 - CONCLUSION: Differential function, 55%% left 45%% right minimal delayed washout with no change with Lasix. This would suggest partial fixed obstruction bilaterally. Wing Jauregui MD FACR Renal scan images reviewed. Medications and IVs Current Medications Medications (Trade) Dose Ordered Sig/John Route Start Time Stop Time Status Last Admin (Tenormin) 50 mg DAILY PO 04/01/17 09:00 04/02/17 10:13 (Cardura) 4 mg HS PO 03/31/17 21:00 04/01/17 19:23 (Procardia Xl) 60 mg DAILY PO 04/01/17 09:00 04/02/17 10:12 (Prinivil) 40 mg DAILY PO 04/01/17 09:00 04/02/17 10:12 Sodium Chloride 1,000 ml @ 100 mls/hr Q10H IV 03/31/17 20:00 04/02/17 11:33 (NS Flush) 2 ml UNSCH PRN IV FLUSH 03/31/17 19:30 (NS Flush) 2 ml BID IV FLUSH 03/31/17 21:00 04/02/17 10:13 (Heparin Inj) 5,000 units Q8HR SQ 03/31/17 22:00 04/02/17 14:40 (Zofran Inj) 4 mg Q6HR PRN IV PUSH 03/31/17 22:45 (Morphine Inj) 3 mg Q3H PRN IM 03/31/17 23:00 03/31/17 23:06 Assessment and Plan Assessment and Plan Urologic impression: #1 bilateral hydroureteronephrosis related to partial obstruction of both ureters #2 presacral mass which may possibly be compressing the ureters and causing the hydronephrosis #3 recent history gross hematuria now resolved Plan: #1 No acute intervention indicated during present hospitalization. #2 Patient to f/u with his established Urologist at [facility] and reschedule his cystoscopy with bilateral stent placement as an outpatient. Jeffery Rich MD Apr 02, 2017 14:51
[2017-04-02 16:00] VITALS: BP 131/88; PULSE 79; RESP 18; TEMP 97.6; O2SAT 100
--- NOTE | 2017-04-02 16:22 | HHI.PR ---
Subjective Remarks late entry - patient seen at 11:45 am Patient states that abdominal pain is much improved Patient states that is tolerating diet Objective Vitals Vital Signs Date Time Temp Pulse Resp B/P (MAP) Pulse Ox O2 Delivery O2 Flow Rate FiO2 04/02/17 12:00 97.7 64 17 116/74 (88) 100 04/02/17 08:00 96.8 107 18 129/80 (96) 100 04/02/17 05:02 97.5 73 18 123/82 (96) 100 04/02/17 00:45 98.7 68 18 126/77 (93) 100 04/01/17 20:56 98.3 69 19 113/74 (87) 98 I/O 04/01/17 04/01/17 04/01/17 04/02/17 04/02/17 04/02/17 07:00 15:00 23:00 07:00 15:00 23:00 Intake Total 1000 ml 1900 ml 1000 ml Output Total 1 ml 1465 ml 250 ml Balance 1000 ml 1899 ml -465 ml -250 ml Intake Oral 900 ml IV Total 1000 ml 1000 ml 1000 ml Output Urine Total 325 ml 250 ml Stool Total 1 ml 1140 ml # Voids 3 7 Result Diagram: 03/31/17 1030 03/31/17 1030 Objective Remarks AAOx3 Clear lungs BL S1S2 Abdomen soft, mildly tender to palpation, bowel sounds present and presence of brown liquid stool in colostomy bag Medications and IVs Current Medications Medications (Trade) Dose Ordered Sig/John Route Start Time Stop Time Status Last Admin (Tenormin) 50 mg DAILY PO 04/01/17 09:00 04/02/17 10:13 (Cardura) 4 mg HS PO 03/31/17 21:00 04/01/17 19:23 (Procardia Xl) 60 mg DAILY PO 04/01/17 09:00 04/02/17 10:12 (Prinivil) 40 mg DAILY PO 04/01/17 09:00 04/02/17 10:12 Sodium Chloride 1,000 ml @ 100 mls/hr Q10H IV 03/31/17 20:00 04/02/17 11:33 (NS Flush) 2 ml UNSCH PRN IV FLUSH 03/31/17 19:30 (NS Flush) 2 ml BID IV FLUSH 03/31/17 21:00 11/3/17 10:13 (Heparin Inj) 5,000 units Q8HR SQ 03/31/17 22:00 04/02/17 14:40 (Zofran Inj) 4 mg Q6HR PRN IV PUSH 03/31/17 22:45 (Morphine Inj) 3 mg Q3H PRN IM 03/31/17 23:00 03/31/17 23:06 A/P Problem List: (1) Partial small bowel obstruction ICD Code: K56.600 - Partial intestinal obstruction, unspecified as to cause Status: Acute (2) Hypertension ICD Code: I10 - Hypertension Status: Chronic (3) Bilateral hydronephrosis ICD Code: N13.30 - Unspecified hydronephrosis (4) History of DVT (deep vein thrombosis) ICD Code: Z86.718 - Personal history of other venous thrombosis and embolism (5) Colon cancer metastasized to multiple sites ICD Code: C18.9 - Malignant neoplasm of colon, unspecified Status: Chronic (6) Loose stools ICD Code: R19.5 - Other fecal abnormalities Status: Chronic Assessment and Plan (1) Partial small bowel obstruction Plan: Continue IV fluids, pain control On full liquid diet - advance as tolerated continue Zofran as needed for nausea 04/02 DC IV fluids if not done. Patient is tolerating diet. Management as per colorectal surgery. Advance diet as tolerated as per colorectal surgery recommendations. (2) Hypertension Plan: BP stable. Continue cardura, lisinopril, atenolol and Nifedipine. Monitor BP. (3) Bilateral hydronephrosis. renal scan with Lasix washout ordered and pending. (4) History of DVT (deep vein thrombosis) Plan: Continue to hold xarelto - patient has an IVC filter (5) Colon cancer metastasized to multiple sites Plan: appreciate oncology consultation and recommendations. (6) Loose stools Plan: C diff ruled out DVT prophylaxis: SCD's, hold xarelto - patient has IVC filter. Discharge Planning Pending clinical improvement. Renal scan pending. Pending her rectal surgery clearance. Arik Rubio MD Apr 02, 2017 16:21
--- NOTE | 2017-04-02 17:15 | HHI.PR ---
Subjective Remarks C/R Surg afebrile, VSS nate PO stoma functioning Objective - Vital Signs Date Time Temp Pulse Resp B/P (MAP) Pulse Ox O2 Delivery O2 Flow Rate FiO2 04/02/17 16:00 97.6 79 18 131/88 (102) 100 03/31/17 08:57 Room Air Result Diagram: 03/31/17 1030 03/31/17 1030 Objective Remarks PE alert Abd - soft, non-tender, min tympany A/P Assessment and Plan Imp: SBO resolved OOB irrigate stoma prn hydronephrosis w/u Mart Juarez MD Apr 02, 2017 17:15
[2017-04-02 19:00] VITALS: BP 104/65; PULSE 64; RESP 18; TEMP 98.8; O2SAT 100
[2017-04-02] MEDS: DOXAZOSIN MESYLATE 4 MG TAB PO SCH (22:16)
[2017-04-03] VITALS: BP 118/69; PULSE 63; RESP 18; TEMP 98.2; O2SAT 100
[2017-04-03] MEDS: HEPARIN SODIUM - SQ 10,000 UNITS/ML VIAL SQ SCH (06:03)
[2017-04-03] MEDS: SODIUM CHLOR 0.9% 1000 ML INJ 1,000 ML IV SCH (07:04)
[2017-04-03 08:00] VITALS: BP 120/78; PULSE 73; RESP 19; TEMP 97.5; O2SAT 100
[2017-04-03] MEDS: LISINOPRIL 20 MG TAB PO SCH (08:54)
[2017-04-03] MEDS: NIFEdipine 60 MG SUSTAINED RELEASE TAB PO SCH (08:54)
[2017-04-03] MEDS: ATENOLOL 50 MG TAB PO SCH (08:54)
[2017-04-03] MEDS: SODIUM CHLORIDE 0.9% FLUSH 10 ML FLUSH IV FLUSH SCH (08:56)
--- NOTE | 2017-04-03 11:21 | HHI.PR ---
Subjective Remarks C/R Surg afebrile, VSS nate PO stoma functioning Objective - Vital Signs Date Time Temp Pulse Resp B/P (MAP) Pulse Ox O2 Delivery O2 Flow Rate FiO2 04/03/17 08:00 97.5 73 19 120/78 (92) 100 03/31/17 08:57 Room Air Result Diagram: 03/31/17 1030 03/31/17 1030 Objective Remarks PE alert Abd - soft, non-tender, min tympany, stoma stooling A/P Assessment and Plan Imp: SBO resolved OOB irrigate stoma prn hydronephrosis w/u dc plans Mart Juarez MD Apr 03, 2017 11:20
--- NOTE | 2017-04-03 11:37 | HHI.DCPOC ---
Discharge Care Plan Diagnosis: (1) Abdominal pain (2) Loose stools (3) Colorectal cancer (4) Colon cancer metastasized to multiple sites (5) History of DVT (deep vein thrombosis) (6) Bilateral hydronephrosis (7) Partial small bowel obstruction (8) Hypertension Goals to Promote Your Health * To prevent worsening of your condition and complications * To maintain your health at the optimal level Directions to Meet Your Goals Take your medications as prescribed Follow your dietary instruction Follow activity as directed Keep your appointments as scheduled Take your immunizations and boosters as scheduled If your symptoms worsen call your PCP, if no PCP go to Urgent Care Center or Emergency Room Smoking is Dangerous to Your Health. Avoid second hand smoke Call the 24-hour hour crisis hotline for domestic abuse at Arik Rubio MD Apr 03, 2017 11:36
--- NOTE | 2017-04-03 11:37 | HHI.DCPOC ---
Discharge Care Plan Diagnosis: (1) Abdominal pain (2) Loose stools (3) Colorectal cancer (4) Colon cancer metastasized to multiple sites (5) History of DVT (deep vein thrombosis) (6) Bilateral hydronephrosis (7) Partial small bowel obstruction (8) Hypertension Goals to Promote Your Health * To prevent worsening of your condition and complications * To maintain your health at the optimal level Directions to Meet Your Goals Take your medications as prescribed Follow your dietary instruction Follow activity as directed Keep your appointments as scheduled Take your immunizations and boosters as scheduled If your symptoms worsen call your PCP, if no PCP go to Urgent Care Center or Emergency Room Smoking is Dangerous to Your Health. Avoid second hand smoke Call the 24-hour hour crisis hotline for domestic abuse at Arik Rubio MD Apr 03, 2017 11:36
--- NOTE | 2017-04-03 11:37 | HHI.DCPOC ---
Discharge Care Plan Diagnosis: (1) Abdominal pain (2) Loose stools (3) Colorectal cancer (4) Colon cancer metastasized to multiple sites (5) History of DVT (deep vein thrombosis) (6) Bilateral hydronephrosis (7) Partial small bowel obstruction (8) Hypertension Goals to Promote Your Health * To prevent worsening of your condition and complications * To maintain your health at the optimal level Directions to Meet Your Goals Take your medications as prescribed Follow your dietary instruction Follow activity as directed Keep your appointments as scheduled Take your immunizations and boosters as scheduled If your symptoms worsen call your PCP, if no PCP go to Urgent Care Center or Emergency Room Smoking is Dangerous to Your Health. Avoid second hand smoke Call the 24-hour hour crisis hotline for domestic abuse at Arik Rubio MD Apr 03, 2017 11:36
--- NOTE | 2017-04-03 11:50 | HHI.DS ---
Discharge Summary Admission Date Mar 31, 2017 at 14:16 Discharge Date: Apr 03, 2017 Admitting Diagnosis partial SBO (1) Partial small bowel obstruction ICD Code: K56.600 - Partial intestinal obstruction, unspecified as to cause Diagnosis: Principal Status: Resolved (2) Hypertension ICD Code: I10 - Hypertension Diagnosis: Secondary Status: Chronic (3) Bilateral hydronephrosis ICD Code: N13.30 - Unspecified hydronephrosis Diagnosis: Principal Status: Acute (4) History of DVT (deep vein thrombosis) ICD Code: Z86.718 - Personal history of other venous thrombosis and embolism Diagnosis: Secondary Status: Chronic (5) Colon cancer metastasized to multiple sites ICD Code: C18.9 - Malignant neoplasm of colon, unspecified Status: Chronic (6) Loose stools ICD Code: R19.5 - Other fecal abnormalities Diagnosis: Principal Status: Chronic Procedures none Brief History - From Admission Is a 56-year-old male with past medical history of metastatic rectal carcinoma who presents to the emergency department complaining of abdominal pain. The patient states that 2 days ago on Wednesday he started having diffuse abdominal pain which was periumbilical, 8/10 intensity without any clear alleviating or aggravating factors. The patient denies any nausea vomiting, denies associated fevers or chills and describes the pain as cramping like pain. The patient states that since 2 days ago on Wednesday he's been having loose stools running to his colostomy bag. The patient states that usually he has some right lower quadrant abdominal pain, but this pain was different. The patient has history of rectal cancer that was treated with colectomy and end colostomy years ago. The patient still on chemotherapy with Avastin every several weeks. CBC/BMP: 03/31/17 1030 03/31/17 1030 Significant Findings Laboratory Tests Test 04/01/17 10:48 Imaging Last Impressions Renal Scan w/Medication NM 04/02/17 0000 Signed Impressions: Service Date/Time: Sunday, April 02, 2017 08:52 - CONCLUSION: Differential function, 55%% left 45%% right minimal delayed washout with no change with Lasix. This would suggest partial fixed obstruction bilaterally. Wing Jauregui MD FACR Abdomen/Pelvis CT 03/31/17 1012 Signed Impressions: Service Date/Time: Friday, March 31, 2017 12:39 - CONCLUSION: 1. Abnormal bowel gas pattern concerning for early or partial small bowel obstruction. 2. New bilateral moderate hydronephrosis. 3. Abnormal soft tissue density remains in the presacral region likely representing postsurgical change and scarring. The previously noted abscess is no longer present. 4. Abnormal appearance of the urinary bladder with apparent diverticulum extending superiorly. 5. Interval placement of inferior vena caval filter. Quan Bowman MD PE at Discharge PE alert Abd - soft, non-tender, min tympany, stoma stooling Pt update on day of discharge The patient states that he has been on tolerating regular diet well, is passing gas and liquid stool through the stoma. Denies fevers or chills, nausea or vomiting. Patient also states that he is able to void. Hospital Course The patient was admitted with abdominal pain secondary to partial small bowel obstruction as seen on imaging described above. The patient was admitted to the medical floor, treated with IV fluids, pain control with IV morphine, IV Zofran for nausea control, colorectal surgery consulted. Dr Juarez evaluated the patient and he did some cleaning of the stoma after which the patient's bowels started to function. Abdominal pain slowly improved, the patient was started on a clear liquid diet, which was advanced to full liquid diet and then to regular diet the patient tolerated. CT abdomen and pelvis was also showed that there was no abnormal appearance of the urinary bladder with apparent diverticulum extending superiorly and interval placement of an inferior vena cava filter and suggestions of bilateral hydronephrosis. The patient was seen in consultation by Dr. Rich ordered a renal scan with Lasix washout and determined that the obstruction was placed on partial. He recommended outpatient treatment with stent placement with the patient's primary urologist. The patient agrees with plan. Hypertension was monitored during hospital stay and remained stable with home antihypertensive medications which include Cardura, lisinopril, atenolol, nifedipine. Vital signs were closely monitored. The patient also has a history of DVT and after imaging there is evidence of an IVC filter in place. As per records the patient was on Xarelto, however the patient states that he had been taken off on Xarelto by his oncologist after 6 months had elapsed from when he had the DVT. Oncology was consulted as the patient has history of colorectal cancer. Since patient also complained of loose stools ACDF toxin PCR was sent to rule out C. difficile infection which was ultimately negative. Pt Condition on Discharge: Stable Discharge Disposition: Discharge Home Discharge Time: > 30 minutes Discharge Instructions DIET: Follow Instructions for: As Tolerated, No Restrictions Activities you can perform: Regular-No Restrictions Activities to Avoid: Strenuous Activity Follow up Referrals: Oncology - 1 Week with Sander Villalobos MD Urology - As Per Protocol with [facility] as per our Urologist - Dr Ridge Orozco the patient will need bilateral ureteral stents placed. Imaging here showed hydronephrosis and Renal scan with lasix washout was done - sugesting a partial fixed obstruction bilaterally. Neurology determined that procedure did not be done emergently. Continued Medications: Atenolol (Atenolol) 50 Mg Tab 50 MG PO DAILY for Blood Pressure Management, #30 TAB 0 Refills Doxazosin (Doxazosin) 4 Mg Tab 4 MG PO HS, TAB 0 Refills Gabapentin (Gabapentin) 300 Mg Cap 300 MG PO TID, CAP 0 Refills Hydrocodone-Acetaminophen (Lortab) 5-325 Mg Tab 1 TAB PO Q6H PRN for PAIN, #20 TAB 0 Refills Lisinopril (Lisinopril) 40 Mg Tab 40 MG PO DAILY for Blood Pressure Management, #30 TAB 0 Refills Nifedipine ER 24 HR (Nifedipine ER 24 HR) 60 Mg Tab 1 CAP PO DAILY Potassium Chloride ER (Potassium Chloride ER) 10 Meq Tab 10 MEQ PO BID for Electrolyte Replacement, #60 TAB 0 Refills Arik Rubio MD Apr 03, 2017 11:49
[2017-04-03 12:00] VITALS: BP 109/70; PULSE 57; RESP 18; TEMP 96.9; O2SAT 100
== END 2017-04-03 12:48 | disposition home or self-care (01) | DRG 389 ==
LOC: NEPC 08:55 → NEDA 14:16 → N07A 15:34
PROVIDERS: ADMIT Hospitalist; ATTEND Hospitalist
DX: K56.600 Partial intestinal obstruction, unspecified as to cause (principal); N13.30 Unspecified hydronephrosis; C78.7 Secondary malignant neoplasm of liver and intrahepatic bile duct; C19 Malignant neoplasm of rectosigmoid junction; Z43.3 Encounter for attention to colostomy; I10 Essential (primary) hypertension; E87.6 Hypokalemia; Z86.718 Personal history of other venous thrombosis and embolism
CPT/HCPCS: 74177; 78708; 80053; 81001; 83690; 85025; 87493; 96361; 96374; 96375; A9539; J1644; J1940; J2270; J2405; J7030; Q9967